=== PATIENT | male | born 1945 | race Hispanic/Latino ===

== ENCOUNTER 2017-05-08 07:48 | Inpatient (IN) | payer MEDICARE ==
[2017-05-08 08:05] VITALS: BMI 26.8
[2017-05-08] MEDS ORDERED: Amoxicillin-Clav 875-125 mg Tab PO STA (08:05)
--- NOTE | 2017-05-08 08:27 | ED PDOC ---
Arrival/HPI - General Chief Complaint: ENT Problem Time Seen by Provider: 05/08/17 07:57 Historian: Patient, Spouse - History of Present Illness Narrative History of Present Illness (Text): 05/08/17 07:58 Bryan Hinojosa is a 71 year old male, whose past medical history includes atrial fibrillation on Coumadin, who reports to the emergency department complaining of epistaxis from the bilateral nostrils since last night. Patient reports he was on the cruise when he started to bleed so he went to the physician on the crew ship, who packed the bilateral nares. Patient states blood work was done and is INR was 2.6. He mentions a previous history of epistaxis for when he need to be cauterized. Patient denies headache, dizziness, chest pain, nausea, vomiting or any other complaints at this time. Patient states he did not take his Coumadin yesterday. PMD: located in [place] Time/Duration: Other (last night) Symptom Onset: Sudden Symptom Course: Other Quality: Other Activities at Onset: Rest Context: Other (cruise) Past Medical History - Provider Review Nursing Documentation Reviewed: Yes - Travel History If Yes, travel location?: [place] - Infectious Disease Hx of Infectious Diseases: None - Cardiac Hx Atrial Fibrillation: Yes Hx Hypertension: Yes Other/Comment: Pt had ablation for the Afib - Pulmonary Hx Respiratory Disorders: No - Neurological Hx Neurological Disorder: No - HEENT Hx HEENT Disorder: No - Renal Hx Renal Disorder: No - Endocrine/Metabolic Hx Endocrine Disorders: No - Hematological/Oncological Hx Blood Disorders: No - Integumentary Hx Dermatological Disorder: No - Musculoskeletal/Rheumatological Hx Musculoskeletal Disorders: No - Gastrointestinal Hx Gastrointestinal Disorders: No - Genitourinary/Gynecological Hx Genitourinary Disorders: No - Psychiatric Hx Psychophysiologic Disorder: No Hx Substance Use: No - Anesthesia Hx Anesthesia: No Hx Anesthesia Reactions: No Hx Malignant Hyperthermia: No Family/Social History - Physician Review Nursing Documentation Reviewed: Yes Family/Social History: Unknown Family HX Smoking Status: Current Some Days Smoker Hx Alcohol Use: Yes Frequency of alcohol use: Socially Hx Substance Use: No Allergies/Home Meds Allergies/Adverse Reactions: Allergies No Known Allergies Allergy (Unverified 05/08/17 08:04) Home Medications: Home Meds Medication Instructions Recorded Confirmed Allopurinol [Zyloprim] 300 mg PO DAILY 05/08/17 05/08/17 Atorvastatin [Lipitor] 20 mg PO DAILY 05/08/17 05/08/17 Digoxin [Lanoxin] 0.125 mg PO DAILY 05/08/17 05/08/17 Doxylamine Succinate [Wal-Ranulfo] 25 mg PO DAILY 05/08/17 05/08/17 Furosemide [Lasix] 40 mg PO DAILY 05/08/17 05/08/17 Lamotrigine [Lamictal (Blue)] 25 mg PO DAILY 05/08/17 05/08/17 Warfarin [Coumadin] 5 mg PO DAILY 05/08/17 05/08/17 Review of Systems - Review of Systems Constitutional: absent: Fatigue, Fevers Eyes: absent: Vision Changes ENT: Epistaxis. absent: Hearing Changes, Rhinorrhea Respiratory: absent: SOB Cardiovascular: absent: Chest Pain Gastrointestinal: absent: Abdominal Pain, Diarrhea, Vomiting Genitourinary Male: absent: Dysuria, Frequency Musculoskeletal: absent: Back Pain, Neck Pain Skin: absent: Rash Neurological: absent: Headache, Dizziness Endocrine: absent: Diaphoresis Hemo/Lymphatic: absent: Easy Bleeding Psychiatric: absent: Depression Physical Exam - Physical Exam Narrative Physical Exam (Text): 05/08/17 07:58 Vital Signs Reviewed: Yes Vital Signs Temp Pulse Resp BP Pulse Ox 05/08/17 14:39 139 H 18 108/71 98 05/08/17 14:25 125 H 17 103/53 L 99 05/08/17 13:45 134 H 16 110/75 99 05/08/17 13:36 137 H 18 101/65 99 05/08/17 10:49 111 H 18 102/69 99 05/08/17 09:45 137 H 17 100/67 99 05/08/17 09:15 97.9 F 102 H 18 111/64 97 Temperature: Afebrile Blood Pressure: Normal Pulse: Tachycardic Respiratory Rate: Normal Appearance: Positive for: Well-Appearing, Non-Toxic, Comfortable Pain Distress: None Mental Status: Positive for: Alert and Oriented X 3 - Systems Exam Head: Present: Atraumatic, Normocephalic Pupils: Present: PERRL Extroacular Muscles: Present: EOMI Conjunctiva: Present: Normal Mouth: Present: Moist Mucous Membranes Pharnyx: Present: Other (no post nasal drip). No: ERYTHEMA, EXUDATE Nose (Internal): Present: Other (bilateral packing in place). No: No Active Bleeding Neck: Present: Normal Range of Motion Respiratory/Chest: Present: Clear to Auscultation, Good Air Exchange. No: Respiratory Distress, Accessory Muscle Use Cardiovascular: Present: Regular Rate and Rhythm, Normal S1, S2. No: Murmurs Abdomen: Present: Normal Bowel Sounds. No: Tenderness, Distention, Peritoneal Signs Back: Present: Normal Inspection Upper Extremity: Present: Normal Inspection. No: Cyanosis, Edema Neurological: Present: GCS=15, CN II-XII Intact, Speech Normal Skin: Present: Warm, Dry, Normal Color. No: Rashes Psychiatric: Present: Alert, Oriented x 3, Normal Insight, Normal Concentration Medical Decision Making ED Course and Treatment: 05/08/17 08:38 Impression: 71 year old male with epistaxis. Currently patient has no active bleeding. Differential Diagnosis included but are not limited to: epistaxis Plan: -- Labs -- Augmentin -- observe for reoccurring epistaxis -- Reassess and disposition 05/08/17 09:34 Hgb:12. INR:3.58. Patient instructed to hold coumadin tonight due to elevation. Rapid rhino removed as bleeding around rapid rhino. Patient refusing additional rapid rhino and requesting treatment with silver nitrate stick. L nostril shows red and inflammed nare with areas of oozing that were treated with silver nitrate stick 05/08/17 10:30 Patient was monitored for 1 hour and had no recurrence of bleeding. 05/08/17 10:49 Patient then began to bleed again. He consents to rapid rhino placement. 05/08/17 12:55 Patient had persistent bleeding after placement of afrin soaked rapid rhino to L nare and then rapid rhino placed to R nare. Bleeding resolved. Patient states that he went to the bathroom and had dark stool. A rectal exam was performed. Patient has dark stool and is guaiac positive. Patient denies abdominal pain. Due to patient elevated INR, tachycardia, persistent epistaxis and rectal bleeding will admit patient. Vit 1 5mg IV given due to clinically significant active bleeding and INR>2. Dr. Skyler burgos. I have discussed the results and plan with the patient, who expresses understanding. Patient given the opportunity to ask question, all questions were answered and there is agreement with the plan to be admitted to the hospital. 05/08/17 13:09 Dr. Holland aware. Ordered FFP. and GI and ENT consult placed. 05/08/17 14:01 Patient has elevated hr but has maintained and has unchanged BP throughout emergency department observation. HR elevation thought secondary to combination of pain and blood loss. IVF infusing. Repeat Hgb 12.1 to 11.6 05/08/17 14:27 EKG done because patient going to tele. No chest pain. 05/08/17 14:[address] griffin and he reports that blood is likely swallowed blood. He reports that patient can have clear liquid and he will follow 05/08/17 14:49 Spoke to ENT on consult who will evaluate patient. - Lab Interpretations Lab Results: 05/08/17 08:15 05/08/17 08:15 Lab Results 05/08/17 08:15: Sodium 141, Potassium 4.9, Chloride 106, Carbon Dioxide 28, Anion Gap 12, BUN 59 H, Creatinine 1.0, Est GFR ( Amer) > 60, Est GFR ( Non-Af Amer) > 60, Random Glucose 140 H, Calcium 8.9, Total Bilirubin 0.9, AST 33, ALT 32, Alkaline Phosphatase 45, Total Protein 5.7 L, Albumin 3.3, Globulin 2.5, Albumin/Globulin Ratio 1.3 05/08/17 08:15: PT 38.7 H*, INR 3.58 H*, APTT 39.5 H 05/08/17 08:15: WBC 5.6, RBC 3.76, Hgb 12.1 L, Hct 37.2 L, MCV 98.9, MCH 32.2, MCHC 32.5, RDW 15.0 H, Plt Count 116 L, MPV 11.9 H, Gran % 83.0 H, Lymph % (Auto ) 11.6 L, [place] % (Auto) 4.8, Eos % (Auto) 0.2 L, Baso % (Auto) 0.4, Gran # 4.67 , Lymph # 0.7 L, [place] # 0.3, Eos # 0.0, Baso # 0.02 I have reviewed the lab results: Yes - Medication Orders Current Medication Orders: Discontinued Medications Amoxicillin/Clavulanate Potassium (Augmentin 875 Mg-125 Mg Tab) 1 tab PO STAT STA PRN Reason: Protocol Stop: 05/08/17 08:06 Last Admin: 05/08/17 08:27 Dose: 1 tab Phytonadione 5 mg/ Sodium (Chloride) 50.5 mls @ 100 mls/hr IV STAT STA Stop: 05/08/17 13:27 Last Admin: 05/08/17 13:30 Dose: 100 mls/hr Sodium Chloride (Sodium Chloride 0.9%) 1,000 mls @ 999 mls/hr IV .Q1H1M STA Stop: 05/08/17 14:00 Last Admin: 05/08/17 13:51 Dose: 999 mls/hr Morphine Sulfate (Morphine) 4 mg IVP STAT STA Stop: 05/08/17 14:12 Last Admin: 05/08/17 14:40 Dose: 4 mg Oxymetazoline HCl (Afrin 0.05%) 0 ml NS STAT STA Stop: 05/08/17 10:23 Last Admin: 05/08/17 13:53 Dose: Not Given Non-Admin Reason: Patient Refused Pantoprazole Sodium (Protonix Inj) 40 mg IVP STAT STA Stop: 05/08/17 12:59 Last Admin: 05/08/17 13:51 Dose: 40 mg Phenylephrine HCl (Saji-Synephrine 0.5% Nasal [place]) Confirm Administered Dose 15 ml .ROUTE .STK-MED ONE Stop: 05/08/17 10:24 Phytonadione (Vitamin K Inj) Confirm Administered Dose 10 mg .ROUTE .STK-MED ONE Stop: 05/08/17 13:43 Last Admin: 05/08/17 13:53 Dose: ED OBSERVATION Date of observation admission: 05/08/17 Time of observation admission: 07:58 - Observation admission statement Patient is being placed in observation because:: epistaxis - Goals of Observation Goals of observation are:: control bleeding - Scribe Statement The provider has reviewed the documentation as recorded by the Scribe 05/08/17 Laly Gabriel training with Tan Davies Provider Scribe Attestation: All medical record entries made by the Scribe were at my direction and personally dictated by me. I have reviewed the chart and agree that the record accurately reflects my personal performance of the history, physical exam, medical decision making, and the department course for this patient. I have also personally directed, reviewed, and agree with the discharge instructions and disposition. Disposition/Present on Arrival - Present on Arrival Any Indicators Present on Arrival: No History of DVT/PE: No History of Uncontrolled Diabetes: No Urinary Catheter: No History of Decub. Ulcer: No History Surgical Site Infection Following: None - Disposition Have Diagnosis and Disposition been Completed?: Yes Diagnosis: Epistaxis, Guaiac positive stools Disposition: HOME/ ROUTINE Disposition Time: 10:30 Patient Plan: Admission Patient Problems: Current Active Problems Problem Status Onset Epistaxis Acute Guaiac positive stools Acute Condition: FAIR
[2017-05-08 08:59] LABS: BASO # 0.02 K/mm3 (0.0-2.0); BASO % 0.4 % (0.0-3.0); EOS % 0.2 % (1.5-5.0); GRAN # 4.67 (1.4-6.5); HEMOGLOBIN 12.1 gm/dL (14.0-18.0); LYMPH # 0.7 (1.2-3.4); LYMPH % 11.6 % (22.0-35.0); MEAN CELL VOLUME 98.9 fL (80.0-105.0); MEAN CORPUSCULAR HEMOGLOBIN 32.2 pg (25.0-35.0); MEAN CORPUSCULAR HGB CONC 32.5 g/dl (31.0-37.0); MEAN PLATELET VOLUME 11.9 fl (7.0-11.0); MONO # 0.3 (0.1-0.6); MONO % 4.8 % (1.0-6.0); PLATELET COUNT 116 10^3/uL (120.0-450.0); RBC 3.76 10^6/uL (3.5-6.1); WHITE BLOOD COUNT 5.6 10^3/ul (4.5-11.0)
[2017-05-08 09:08] LABS: PARTIAL THROMBOPLASTIN TIME 39.5 Seconds (23.7-30.8); PROTHROMBIN TIME 38.7 Seconds (9.9-11.8)
[2017-05-08 09:12] LABS: ALB/GLOB RATIO 1.3 (1.1-1.8); ALBUMIN 3.3 g/dL (3.0-4.8); ALT/SGPT 32 U/L (7-56); AST/SGOT 33 U/L (15-59); BLOOD UREA NITROGEN 59 mg/dL (7-21); CALCIUM 8.9 mg/dL (8.4-10.5); GFR AFRICAN-AMERICAN > 60; GFR NON-AFRICAN AMERICAN > 60; INR 3.58 (0.93-1.08)
[2017-05-08] MEDS ORDERED: Oxymetazoline 0.05% Nasal Spray (30 ml) NS STA (10:22)
[2017-05-08] MEDS ORDERED: Phenylephrine 0.5% Nasal Spray (15 ml) ONE (10:23)
[2017-05-08] MEDS ORDERED: Phytonadione 5 MG in Sodium Chloride 0.9% 50 ML IV STA (12:57)
[2017-05-08] MEDS ORDERED: Sodium Chloride 0.9% 1,000 ML IV STA (13:00)
[2017-05-08] MEDS ORDERED: Phytonadione 10 mg/ml Inj (Adult) ONE (13:42)
[2017-05-08 13:55] LABS: BASO # 0.01 K/mm3 (0.0-2.0); BASO % 0.1 % (0.0-3.0); EOS % 0.1 % (1.5-5.0); GRAN # 7.14 (1.4-6.5); GRAN % 85.7 % (50.0-68.0); HEMOGLOBIN 11.6 gm/dL (14.0-18.0); LYMPH # 0.9 (1.2-3.4); LYMPH % 10.6 % (22.0-35.0); MEAN CELL VOLUME 98.3 fL (80.0-105.0); MEAN CORPUSCULAR HEMOGLOBIN 32.6 pg (25.0-35.0); MEAN CORPUSCULAR HGB CONC 33.1 g/dl (31.0-37.0); MEAN PLATELET VOLUME 12.1 fl (7.0-11.0); MONO # 0.3 (0.1-0.6); MONO % 3.5 % (1.0-6.0); PLATELET COUNT 122 10^3/uL (120.0-450.0); RBC 3.56 10^6/uL (3.5-6.1); RED CELL DISTRIBUTION WIDTH 15.1 % (11.5-14.5); WHITE BLOOD COUNT 8.3 10^3/ul (4.5-11.0)
[2017-05-08 14:02] LABS: ALB/GLOB RATIO 1.4 (1.1-1.8); ALBUMIN 3.4 g/dL (3.0-4.8); ALT/SGPT 32 U/L (7-56); AST/SGOT 29 U/L (15-59); BLOOD UREA NITROGEN 69 mg/dL (7-21); CALCIUM 8.9 mg/dL (8.4-10.5); GFR AFRICAN-AMERICAN > 60; GFR NON-AFRICAN AMERICAN > 60
[2017-05-08] MEDS ORDERED: Morphine 4 mg/ml ISec IVP STA (14:11)
[2017-05-08] MEDS ORDERED: Digoxin 500 mcg/2ml (0.5 mg/2ml) Inj IVP ONE ×2 (16:34→20:30)
--- NOTE | 2017-05-08 16:52 | CP.PCM.PN ---
Subjective - Date & Time of Evaluation Date of Evaluation: 05/08/17 Time of Evaluation: 15:25 - Subjective Subjective: Patient has orders for transfusion of FFP,needs consent for the same. Objective - Vital Signs/Intake and Output Vital Signs (last 24 hours): Temp Pulse Resp BP Pulse Ox 97.9 F 139 H 18 108/71 98 05/08/17 09:15 05/08/17 14:39 05/08/17 14:39 05/08/17 14:39 05/08/17 14:39 - Labs Labs: 05/08/17 13:35 05/08/17 13:35 PT 38.7 Seconds (9.9-11.8) H* 05/08/17 08:15 INR 3.58 (0.93-1.08) H* 05/08/17 08:15 APTT 39.5 Seconds (23.7-30.8) H 05/08/17 08:15 - Constitutional Appears: No Acute Distress Assessment and Plan - Assessment and Plan (Free Text) Assessment: Coagulopathy Plan: Explained to pt about his coagulopathy and the need for transfusion of FFP,and its benefits and risks. Patient stated he understood what he was told,then signed consent for the same.
[2017-05-08] MEDS ORDERED: Sodium Chloride 0.9% 250 ML IV SCH (16:56)
--- NOTE | 2017-05-08 17:00 | CP.PCM.PN ---
<SULAIMAN BAH - Last Filed: 05/08/17 18:59> Subjective - Date & Time of Evaluation Date of Evaluation: 05/08/17 Time of Evaluation: 16:00 - Subjective Subjective: Rapid Response NOTE Rapid Response team was called and responded STAT to [employer] call @[id number]. Mr. Hinojosa was found on the floor, but was talking. The patient denied chest pain , headache, change in vision, but admitted to feeling dizzy and nauseous. The patient was on a cruise when he had an episode of epistaxis and came to the hospital as soon as they reached land. The pt was treated with nasal packing in the ER and was given morphine for the pain a/w pressure of packing. After bleeding was controlled, packing was removed but had to be replaced due to recurrent bleeding. Workup in the ER revealed pt's INR to be 3.58. FFP was ordered. After pt came to the floor, pt got up to use the bathroom, felt dizzy, vomited some blood (per ) and fell. Patient did not pass out or lose consciousness but did admit to feeling faint. The pt's vitals were BP 161/99, P129, RR 20, O2Sat 94%RA, FS 168. Labs were reviewed. PMH Afib Objective - Vital Signs/Intake and Output Vital Signs (last 24 hours): Temp Pulse Resp BP Pulse Ox 97.9 F 139 H 18 108/71 98 05/08/17 09:15 05/08/17 14:39 05/08/17 14:39 05/08/17 14:39 05/08/17 14:39 - Medications Medications: Current Medications Allopurinol (Zyloprim) 300 mg PO DAILY EMI Atorvastatin Calcium (Lipitor) 20 mg PO DAILY EMI Digoxin (Lanoxin) 0.125 mg PO 1400 EMI Furosemide (Lasix) 40 mg PO DAILY EMI diltiaZEM IVPB 100mg in NS (Cardizem 100mg In Ns) 100 mls @ 10 mls/hr IV .Q10H PRN; Protocol; 10 MG/HR PRN Reason: TITRATE PER MD ORDER - Labs Labs: 05/08/17 13:35 05/08/17 13:35 PT 38.7 Seconds (9.9-11.8) H* 05/08/17 08:15 INR 3.58 (0.93-1.08) H* 05/08/17 08:15 APTT 39.5 Seconds (23.7-30.8) H 05/08/17 08:15 - Constitutional Appears: In Acute Distress (discomfort due to nasal packing ) - Head Exam Head Exam: NORMOCEPHALIC Additional comments: small superficial abrasion 1/4" diameter on back of skull (occiptoparietal region) - Eye Exam Eye Exam: Normal appearance, PERRL - ENT Exam ENT Exam: Mucous Membranes Moist Additional comments: nose with packing in place, bloody. Trace dry blood around external nose - Neck Exam Neck Exam: Normal Inspection. absent: Tenderness - Respiratory Exam Respiratory Exam: Clear to Ausculation Bilateral - Cardiovascular Exam Cardiovascular Exam: Tachycardia, Irregular Rhythm - GI/Abdominal Exam GI & Abdominal Exam: Soft, Normal Bowel Sounds. absent: Tenderness - Extremities Exam Extremities Exam: absent: Calf Tenderness, Pedal Edema Additional comments: old scare in R knee, moves well but complains of pain, no localized tenderness or ecchymosis or hematoma - Back Exam Back Exam: NORMAL INSPECTION. absent: paraspinal tenderness, vertebral tenderness - Neurological Exam Neurological Exam: Awake, CN II-XII Intact, Oriented x3 Additional comments: moves all 4 limbs equally - Psychiatric Exam Psychiatric exam: Anxious - Skin Skin Exam: Abrasion (on posterior scalp, no active bleeding noted), Dry, Warm Assessment and Plan - Assessment and Plan (Free Text) Assessment: 1. Fall 2. Scalp abrasion 3. Epistaxis 4. Coagulopathy 5. Afib with RVR 6. Hematemesis 7. R Knee pain Plan: 1. Fall - CT Head w/o contrast done - Neuro consulted 2. Scalp abrasion - clean with normal saline 3. Epistaxis - nasal packing in place - ENT consulted, pt to be seen shortly 4. Coagulopathy - FFP ordered 5. Afib with RVR - Dr. Mccray was consulted - pt was about to get cardizem as ordered by Dr. Mccray, but was held due to BP being low (87/50). Instead Digoxin IV was given. 6. Hematemesis - GI was already consulted 7. R Knee pain - R Knee XRAY ordered 8. Hypotension possibly 2/2 epistaxis vs GI bleed - pt given IVF - CBC and blood was ordered for type and cross-match - consult requested with intensevist Dr. Franco- pt accepted to ICU and was transferred <Nena Bang - Last Filed: 05/08/17 19:47> Objective - Vital Signs/Intake and Output Vital Signs (last 24 hours): Temp Pulse Resp BP Pulse Ox 97.5 F L 135 H 24 146/113 H 96 05/08/17 18:13 05/08/17 19:14 05/08/17 19:00 05/08/17 19:14 05/08/17 19:00 Intake and Output: 05/08/17 05/09/17 18:59 06:59 Intake Total 240 Output Total 150 Balance 90 - Medications Medications: Current Medications Acetaminophen (Tylenol 650mg/20.3ml Solution Ud) 650 mg PO Q6H PRN PRN Reason: Pain, moderate (4-7) Allopurinol (Zyloprim) 300 mg PO DAILY EMI Atorvastatin Calcium (Lipitor) 20 mg PO DAILY EMI Digoxin (Lanoxin) 0.125 mg PO 1400 EMI Digoxin (Lanoxin) 0.25 mg IVP ONCE ONE Stop: 05/08/17 20:31 Furosemide (Lasix) 40 mg PO DAILY EMI diltiaZEM IVPB 100mg in NS (Cardizem 100mg In Ns) 100 mls @ 10 mls/hr IV .Q10H PRN; Protocol; 10 MG/HR PRN Reason: TITRATE PER MD ORDER Last Admin: 05/08/17 19:14 Dose: 10 mg/hr, 10 mls/hr Sodium Chloride (Sodium Chloride 0.9%) 1,000 mls @ 100 mls/hr IV .Q10H EMI Lamotrigine (Lamictal) 25 mg PO DAILY EMI PRN Reason: Protocol Scopolamine (Transderm-Scop) 1 patch TD Q3D EMI - Labs Labs: 05/08/17 17:00 05/08/17 17:00 PT 30.0 Seconds (9.9-11.8) H 05/08/17 17:00 INR 2.78 (0.93-1.08) H 05/08/17 17:00 APTT 39.5 Seconds (23.7-30.8) H 05/08/17 08:15 Attending/Attestation - Attestation I have personally seen and examined this patient.: Yes I have fully participated in the care of the patient.: Yes I have reviewed all pertinent clinical information, including history, physical exam and plan: Yes
--- NOTE | 2017-05-08 17:04 | CP.PCM.CON ---
History of Present Illness - History of Present Illness History of Present Illness: NEURO CONSULT NOTE: 05/08/17 CHIEF COMPLAINT: FALL/NEAR SYNCOPE HPI: MR. RANDLE IS A 71 YEAR OLD MAN WITH HISTORY OF AFIB ON COUMADIN WAS [place] AND HAD SUDDENLY DEVELOPED BILATERAL EPISTAXIS THEREFORE CAME TO THE [facility] FOR FURTHER EVALUATION. HE WAS GOING TO THE BATHROOM AND FELT LIGHTHEADED AND FELL TO THE FLOOR AND HIT HIS HEAD. NO LOSS OF CONSCIOUSNESS. HE IS FOLLOWING COMMANDS AND MOVING ALL EXTREMITIES. HE WAS GIVEN MORPHINE IN THE ER FOR PAIN. CT HEAD ORDERD STAT, RESULT PENDING. HE STILL CONTINUES TO BLEED FROM HIS NOSTRILS. HE IS GETTING 2 ROUNDS OF FFP SINCE INR IS ELEVATED. ROS: 14 POINT REVIEW OF SYMPTOMS IS NEGATIVE PER HPI. ALLERGIES: NONE SOCIAL HISTORY: NO ILLICIT DRUG USE, SMOKING, OR ETOH USE. FAMILY: NON CONTRIBUTORY. MEDICATIONS: REVIEWED BY NURSE'S RECONCILIATION SHEET. PAST MEDICAL HISTORY: AFIB, HTN PHYSICAL EXAM: VITAL SIGNS: REVIEWED BY THE CHART GENERAL EXAM: PATIENT SEEN IN BED, IN NO ACUTE DISTRESS HEENT: PERRLA, EOMI, NECK SUPPLE, NO JVD, NO ADENOPATHY CVS: S1, S2, RRR, NO MURMURS NOTED LUNGS: CLEAR TO AUSCULTATION, NO ADVENTITIOUS SOUNDS ABDOMEN: SOFT AND NONTENDER EXTREMITIES: NO CLUBBING OR CYANOSIS. PP 2+ B/L NEURO: PT IS ALERT AND ORIENTED TO PERSON, PLACE, AND YEAR. , RECALL TO 5 MINUTES 3/3, SPEECH IS FLUENT WITHOUT ERRORS, CN II-XII INTACT, MOTOR EXAM: NORMAL TONE, NORMAL BULK OF MUSCLE, MOVES ALL EXTREMITIES EQUALLY, NO PRONATOR DRIFT SEEN. SENSORY EXAM: LIGHT TOUCH, PIN PRICK UP TO CALVES B/L, PROPRIOCEPTION , VIBRATION ARE INTACT B/L DEEP TENDON REFLEXES: 2+ THROUGHOUT. COORDINATION: FINGER TO NOSE IS INTACT. HEEL TO [place]VAL[place] IS INTACT GAIT: DEFERRED. LABS: REVIEWED BY THE CHART. ASSESSMENT AND PLAN: MR. RANDLE IS A 71 YEAR OLD MAN WITH HISTORY OF AFIB ON COUMADIN WAS [place] THE [place] AND HAD SUDDENLY DEVELOPED BILATERAL EPISTAXIS THEREFORE CAME TO THE [facility] FOR FURTHER EVALUATION. HE WAS GOING TO THE BATHROOM AND FELT LIGHTHEADED AND FELL TO THE FLOOR AND HIT HIS HEAD. NO LOSS OF CONSCIOUSNESS. HE IS FOLLOWING COMMANDS AND MOVING ALL EXTREMITIES. HE WAS GIVEN MORPHINE IN THE ER FOR PAIN. CT HEAD ORDERD STAT, RESULT PENDING. HE STILL CONTINUES TO BLEED FROM HIS NOSTRILS. HE IS GETTING 2 ROUNDS OF FFP SINCE INR IS ELEVATED. IMPRESSION: FALL/NEAR SYNCOPE SECONDARY TO A VASOVAGAL COMPONENT FROM EPSTAXIS AND MORPHINE MEDICATION. 1.HOLD COUMADIN FOR NOW. GIVE FFP. 2. MONITOR ELECTROLYTES AND CORRECT ACCORDINGLY. HYDRATE. 3. FIORECET AT THE ACUTE ONSET OF HEADACHE 4. CT HEAD STAT. 5. HYDRATION. THANK YOU. Jessica DAILEY MD Past Patient History - Infectious Disease Hx of Infectious Diseases: None - Past Social History Smoking Status: Current Some Days Smoker - CARDIAC Hx Atrial Fibrillation: Yes Hx Hypertension: Yes Other/Comment: Pt had ablation for the Afib - PULMONARY Hx Respiratory Disorders: No - NEUROLOGICAL Hx Neurological Disorder: No - HEENT Hx HEENT Problems: No - RENAL Hx Chronic Kidney Disease: No - ENDOCRINE/METABOLIC Hx Endocrine Disorders: No - HEMATOLOGICAL/ONCOLOGICAL Hx Blood Disorders: No - INTEGUMENTARY Hx Dermatological Problems: No - MUSCULOSKELETAL/RHEUMATOLOGICAL Hx Musculoskeletal Disorders: No - GASTROINTESTINAL Hx Gastrointestinal Disorders: No - GENITOURINARY/GYNECOLOGICAL Hx Genitourinary Disorders: No - PSYCHIATRIC Hx Psychophysiologic Disorder: No Hx Substance Use: No - SURGICAL HISTORY Hx Surgeries: No - ANESTHESIA Hx Anesthesia: No Hx Anesthesia Reactions: No Hx Malignant Hyperthermia: No Meds Home Medications: Home Medication List Medication Instructions Recorded Confirmed Type Amoxicillin/Clavulanate [Augmentin 1 tab PO BID #10 tab 05/08/17 Rx 875 MG-125 MG] Allergies/Adverse Reactions: Allergies Allergy/AdvReac Type Severity Reaction Status Date / Time No Known Allergies Allergy Unverified 05/08/17 08:04 - Medications Medications: Current Medications Allopurinol (Zyloprim) 300 mg PO DAILY EMI Atorvastatin Calcium (Lipitor) 20 mg PO DAILY EMI Digoxin (Lanoxin) 0.125 mg PO 1400 EMI Furosemide (Lasix) 40 mg PO DAILY EMI diltiaZEM IVPB 100mg in NS (Cardizem 100mg In Ns) 100 mls @ 10 mls/hr IV .Q10H PRN; Protocol; 10 MG/HR PRN Reason: TITRATE PER MD ORDER Results - Vital Signs Recent Vital Signs: Last Vital Signs Temp 97.9 F 05/08/17 09:15 Pulse 139 H 05/08/17 14:39 Resp 18 05/08/17 14:39 BP 108/71 05/08/17 14:39 Pulse Ox 98 05/08/17 14:39 - Labs Result Diagrams: 05/08/17 13:35 05/08/17 13:35 Labs: Laboratory Results - last 24 hr 05/08/17 05/08/17 05/08/17 13:35 13:35 13:35 WBC 8.3 D RBC 3.56 Hgb 11.6 L Hct 35.0 L MCV 98.3 MCH 32.6 MCHC 33.1 RDW 15.1 H Plt Count 122 MPV 12.1 H Gran % 85.7 H Lymph % (Auto) 10.6 L [place] % (Auto) 3.5 Eos % (Auto) 0.1 L Baso % (Auto) 0.1 Gran # 7.14 H Lymph # 0.9 L [place] # 0.3 Eos # 0.0 Baso # 0.01 Sodium 141 Potassium 4.8 Chloride 106 Carbon Dioxide 27 Anion Gap 13 BUN 69 H Creatinine 1.0 Est GFR ( Amer) > 60 Est GFR (Non-Af Amer) > 60 POC Glucose (mg/dL) Random Glucose 134 H Calcium 8.9 Total Bilirubin 0.8 AST 29 ALT 32 Alkaline Phosphatase 42 Total Protein 5.9 Albumin 3.4 Globulin 2.5 Albumin/Globulin Ratio 1.4 Blood Type AB NEGATIVE Blood Type Confirm Antibody Screen Negative BBK History Checked No verified bt 05/08/17 05/08/17 14:25 16:07 WBC RBC Hgb Hct MCV MCH MCHC RDW Plt Count MPV Gran % Lymph % (Auto) [place] % (Auto) Eos % (Auto) Baso % (Auto) Gran # Lymph # [place] # Eos # Baso # Sodium Potassium Chloride Carbon Dioxide Anion Gap BUN Creatinine Est GFR ( Amer) Est GFR (Non-Af Amer) POC Glucose (mg/dL) 168 H Random Glucose Calcium Total Bilirubin AST ALT Alkaline Phosphatase Total Protein Albumin Globulin Albumin/Globulin Ratio Blood Type Blood Type Confirm AB NEGATIVE Antibody Screen BBK History Checked
[2017-05-08 17:07] LABS: HEMOGLOBIN 10.5 gm/dL (14.0-18.0); MEAN CELL VOLUME 98.2 fL (80.0-105.0); MEAN CORPUSCULAR HEMOGLOBIN 32.1 pg (25.0-35.0); MEAN CORPUSCULAR HGB CONC 32.7 g/dl (31.0-37.0); MEAN PLATELET VOLUME 11.4 fl (7.0-11.0); RBC 3.27 10^6/uL (3.5-6.1); RED CELL DISTRIBUTION WIDTH 15.1 % (11.5-14.5); WHITE BLOOD COUNT 7.6 10^3/ul (4.5-11.0)
[2017-05-08 17:19] LABS: ALB/GLOB RATIO 1.2 (1.1-1.8); ALBUMIN 2.9 g/dL (3.0-4.8); ALT/SGPT 31 U/L (7-56); AST/SGOT 28 U/L (15-59); BLOOD UREA NITROGEN 73 mg/dL (7-21); CALCIUM 8.4 mg/dL (8.4-10.5); GFR AFRICAN-AMERICAN > 60; GFR NON-AFRICAN AMERICAN > 60
[2017-05-08 17:28] LABS: INR 2.78 (0.93-1.08)
[2017-05-08 17:29] LABS: TROPONIN I 0.03 ng/mL
--- NOTE | 2017-05-08 17:32 | CT ---
PROCEDURE: CT HEAD WITHOUT CONTRAST. HISTORY: Pt fell and struck head COMPARISON: None available. TECHNIQUE: Axial computed tomography images were obtained through the head/brain without intravenous contrast. Radiation dose: Total exam DLP = 895.86 mGy-cm. This CT exam was performed using one or more of the following dose reduction techniques: Automated exposure control, adjustment of the mA and/or kV according to patient size, and/or use of iterative reconstruction technique. FINDINGS: HEMORRHAGE: No intracranial hemorrhage. BRAIN: No intracranial mass the mild diffuse age-appropriate cerebral atrophy. VENTRICLES: Unremarkable. No hydrocephalus. CALVARIUM: Unremarkable. PARANASAL SINUSES: There is an air-fluid level in left maxillary antrum, possibly the result of an orbital floor fracture. The fluid in the left maxillary antrum is of high attenuation consistent with blood. There is no fracture clearly demonstrated on this examination. There are balloons in both nasal passages, possibly for treatment of nasal hemorrhage. There is blood or mucus intermixed with air in the nasopharynx. There is nasal septal deviation towards the right. Evaluation with CT of the facial bones is advised. MASTOID AIR CELLS: Unremarkable as visualized. No inflammatory changes. OTHER FINDINGS: None. IMPRESSION: No intracranial hemorrhage. Possible left orbital floor fracture, only secondarily demonstrated by air-fluid level in the left maxillary antrum. The fluid in the maxillary antrum is high attenuation and suspected to be blood. Nasal packing demonstrated. Recommend evaluation with CT of the facial bones.
[2017-05-08] MEDS ORDERED: Bacitracin 500 Units/gm Oint Foilpak UD ONE (17:41)
[2017-05-08] MEDS ORDERED: Acetaminophen 650mg/20.3ml solution UD PO PRN (18:05)
--- NOTE | 2017-05-08 18:36 | CP.PCM.CON ---
History of Present Illness - History of Present Illness History of Present Illness: 71yo [place] w severe epistaxis uncontrolled there, brought to ER w packing/cautery x 2 w continued oozing of blood to pharynx. Pt on coumadin for afib, w similar episode =2years ago. INR 3.58, Vit K given w MS in ER w pt attempting to go to toilet w possible syncopal event, w hitting head now resting comfortably w at bedside, w elevated HR noted for eval/rx Review of Systems - Constitutional Constitutional: As Per HPI - EENT Eyes: As Per HPI Nose/Mouth/Throat: Epistaxis, Nose Pain, Sinus Pain, Sinus Pressure, Facial Pain - Cardiovascular Cardiovascular: Irregular Heart Rhythm, Lightheadedness - Respiratory Respiratory: As Per HPI - Gastrointestinal Gastrointestinal: As Per HPI - Musculoskeletal Musculoskeletal: As Per HPI - Integumentary Integumentary: As Per HPI - Neurological Neurological: Tremor - Hematologic/Lymphatic Hematologic: Easy Bleeding Past Patient History - Infectious Disease Hx of Infectious Diseases: None - Past Social History Smoking Status: Current Some Days Smoker 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 Drugs: Denies Home Situation {Lives}: With Family - CARDIAC Hx Atrial Fibrillation: Yes Hx Hypertension: Yes Other/Comment: Pt had ablation for the Afib - PULMONARY Hx Respiratory Disorders: No - NEUROLOGICAL Hx Neurological Disorder: No - HEENT Hx HEENT Problems: No Hx Epistaxis: Yes - RENAL Hx Chronic Kidney Disease: No - ENDOCRINE/METABOLIC Hx Endocrine Disorders: No - HEMATOLOGICAL/ONCOLOGICAL Hx Blood Disorders: No - INTEGUMENTARY Hx Dermatological Problems: No - MUSCULOSKELETAL/RHEUMATOLOGICAL Hx Musculoskeletal Disorders: No - GASTROINTESTINAL Hx Gastrointestinal Disorders: No - GENITOURINARY/GYNECOLOGICAL Hx Genitourinary Disorders: No - PSYCHIATRIC Hx Psychophysiologic Disorder: No Hx Substance Use: No - SURGICAL HISTORY Hx Surgeries: No - ANESTHESIA Hx Anesthesia: No Hx Anesthesia Reactions: No Hx Malignant Hyperthermia: No Meds Home Medications: Home Medication List Medication Instructions Recorded Confirmed Type Amoxicillin/Clavulanate [Augmentin 1 tab PO BID #10 tab 05/08/17 Rx 875 MG-125 MG] Allergies/Adverse Reactions: Allergies Allergy/AdvReac Type Severity Reaction Status Date / Time No Known Allergies Allergy Unverified 05/08/17 08:04 - Medications Medications: Current Medications Acetaminophen (Tylenol 650mg/20.3ml Solution Ud) 650 mg PO Q6H PRN PRN Reason: Pain, moderate (4-7) Allopurinol (Zyloprim) 300 mg PO DAILY EMI Atorvastatin Calcium (Lipitor) 20 mg PO DAILY EMI Digoxin (Lanoxin) 0.125 mg PO 1400 EMI Furosemide (Lasix) 40 mg PO DAILY EMI diltiaZEM IVPB 100mg in NS (Cardizem 100mg In Ns) 100 mls @ 10 mls/hr IV .Q10H PRN; Protocol; 10 MG/HR PRN Reason: TITRATE PER MD ORDER Sodium Chloride (Sodium Chloride 0.9%) 1,000 mls @ 100 mls/hr IV .Q10H EMI Lamotrigine (Lamictal) 25 mg PO DAILY EMI PRN Reason: Protocol Physical Exam - Head Exam Head Exam: NORMOCEPHALIC - Respiratory Exam Respiratory Exam: Clear to Auscultation Bilateral - Cardiovascular Exam Cardiovascular Exam: Irregular Rhythm - GI/Abdominal Exam GI & Abdominal Exam: Normal Bowel Sounds - Extremities Exam Extremities exam: Positive for: normal inspection - Expanded Neurological Exam Expanded Neurological exam: Tremor - Skin Skin Exam: Normal Color, Warm Results - Vital Signs Recent Vital Signs: Last Vital Signs Temp 97.9 F 05/08/17 09:15 Pulse 139 H 05/08/17 14:39 Resp 18 05/08/17 14:39 BP 108/71 05/08/17 14:39 Pulse Ox 98 05/08/17 14:39 - Labs Result Diagrams: 05/08/17 17:00 05/08/17 17:00 Labs: Laboratory Results - last 24 hr 05/08/17 05/08/17 05/08/17 13:35 13:35 13:35 WBC 8.3 D RBC 3.56 Hgb 11.6 L Hct 35.0 L MCV 98.3 MCH 32.6 MCHC 33.1 RDW 15.1 H Plt Count 122 MPV 12.1 H Gran % 85.7 H Lymph % (Auto) 10.6 L [place] % (Auto) 3.5 Eos % (Auto) 0.1 L Baso % (Auto) 0.1 Gran # 7.14 H Lymph # 0.9 L [place] # 0.3 Eos # 0.0 Baso # 0.01 PT INR Sodium 141 Potassium 4.8 Chloride 106 Carbon Dioxide 27 Anion Gap 13 BUN 69 H Creatinine 1.0 Est GFR ( Amer) > 60 Est GFR (Non-Af Amer) > 60 POC Glucose (mg/dL) Random Glucose 134 H Calcium 8.9 Total Bilirubin 0.8 AST 29 ALT 32 Alkaline Phosphatase 42 Troponin I Total Protein 5.9 Albumin 3.4 Globulin 2.5 Albumin/Globulin Ratio 1.4 Digoxin Blood Type AB NEGATIVE Blood Type Confirm Antibody Screen Negative BBK History Checked No verified bt 05/08/17 05/08/17 05/08/17 14:25 16:07 17:00 WBC RBC Hgb Hct MCV MCH MCHC RDW Plt Count MPV Gran % Lymph % (Auto) [place] % (Auto) Eos % (Auto) Baso % (Auto) Gran # Lymph # [place] # Eos # Baso # PT INR Sodium Potassium Chloride Carbon Dioxide Anion Gap BUN Creatinine Est GFR ( Amer) Est GFR (Non-Af Amer) POC Glucose (mg/dL) 168 H Random Glucose Calcium Total Bilirubin AST ALT Alkaline Phosphatase Troponin I Total Protein Albumin Globulin Albumin/Globulin Ratio Digoxin 0.7 L Blood Type Blood Type Confirm AB NEGATIVE Antibody Screen BBK History Checked 05/08/17 05/08/17 05/08/17 17:00 17:00 17:00 WBC 7.6 RBC 3.27 L Hgb 10.5 L Hct 32.1 L MCV 98.2 MCH 32.1 MCHC 32.7 RDW 15.1 H Plt Count 114 L MPV 11.4 H Gran % Lymph % (Auto) [place] % (Auto) Eos % (Auto) Baso % (Auto) Gran # Lymph # [place] # Eos # Baso # PT 30.0 H INR 2.78 H Sodium 140 Potassium 4.4 Chloride 107 Carbon Dioxide 24 Anion Gap 13 BUN 73 H Creatinine 1.1 Est GFR ( Amer) > 60 Est GFR (Non-Af Amer) > 60 POC Glucose (mg/dL) Random Glucose 153 H Calcium 8.4 Total Bilirubin 0.9 AST 28 ALT 31 Alkaline Phosphatase 41 Troponin I 0.03 Total Protein 5.4 L Albumin 2.9 L Globulin 2.4 Albumin/Globulin Ratio 1.2 Digoxin Blood Type Blood Type Confirm Antibody Screen BBK History Checked Assessment & Plan - Assessment and Plan (Free Text) Assessment: A/P Epistaxis uncontrolled, Afib, abn INR o coumadin, tachydysrhthmia, tremor at rest , sp fall, light headedness, ?seizure disorder(pt on Lamictal) Admit to ICU, Cardio eval, ENT eval ,Neuro eval, 2u of FFP to be given, check INR/labs , continue meds as per Dr Mccray monitor clinically
--- NOTE | 2017-05-08 18:38 | CP.PCM.CON ---
History of Present Illness - History of Present Illness History of Present Illness: Reason For Consult: S/p Fall, Nose Bleed A fib RVR 71 year old male with PMhx Non ischemic CMP, S/p [place] procedure for Afib ( ch Afib) on coumadin from [place] was on [employer] [place] to [facility] B/ c of nose bleed, who [facility], and gonig to bath room fell down back major hit his head and having uncontrolled Epistaxis insted of Nasal packing and now heart rate in tel Floor 130-140"s soi cardilogy consu;t called. is at bed side who gave all info. Denies any chest pain, SOB, Palpitation PMhx C A fib. Gout, Hyperlipidemia Non Ischemic CMP pShx Cardiac cath in remote No coronaries [place] for Afib 2005 with lateral thoracotomy approach Current Meds Coumadin, Allopurinal Dig Lasix atorvastatin NKDA Review of Systems - Review of Systems Systems not reviewed;Unavailable: Acuity of Condition Review of Systems: Torential Nose Bleed - Constitutional Constitutional: As Per HPI - EENT Eyes: As Per HPI Ears: As Per HPI Nose/Mouth/Throat: As Per HPI - Cardiovascular Cardiovascular: As Per HPI - Respiratory Respiratory: As Per HPI - Gastrointestinal Gastrointestinal: As Per HPI Past Patient History - Infectious Disease Hx of Infectious Diseases: None - Past Social History Smoking Status: Current Some Days Smoker - CARDIAC Hx Atrial Fibrillation: Yes Hx Hypertension: Yes Other/Comment: Pt had ablation for the Afib - PULMONARY Hx Respiratory Disorders: No - NEUROLOGICAL Hx Neurological Disorder: No - HEENT Hx HEENT Problems: No - RENAL Hx Chronic Kidney Disease: No - ENDOCRINE/METABOLIC Hx Endocrine Disorders: No - HEMATOLOGICAL/ONCOLOGICAL Hx Blood Disorders: No - INTEGUMENTARY Hx Dermatological Problems: No - MUSCULOSKELETAL/RHEUMATOLOGICAL Hx Musculoskeletal Disorders: No - GASTROINTESTINAL Hx Gastrointestinal Disorders: No - GENITOURINARY/GYNECOLOGICAL Hx Genitourinary Disorders: No - PSYCHIATRIC Hx Psychophysiologic Disorder: No Hx Substance Use: No - SURGICAL HISTORY Hx Surgeries: No - ANESTHESIA Hx Anesthesia: No Hx Anesthesia Reactions: No Hx Malignant Hyperthermia: No Meds Home Medications: Home Medication List Medication Instructions Recorded Confirmed Type Amoxicillin/Clavulanate [Augmentin 1 tab PO BID #10 tab 05/08/17 Rx 875 MG-125 MG] Allergies/Adverse Reactions: Allergies Allergy/AdvReac Type Severity Reaction Status Date / Time No Known Allergies Allergy Unverified 05/08/17 08:04 - Medications Medications: Current Medications Acetaminophen (Tylenol 650mg/20.3ml Solution Ud) 650 mg PO Q6H PRN PRN Reason: Pain, moderate (4-7) Allopurinol (Zyloprim) 300 mg PO DAILY EMI Atorvastatin Calcium (Lipitor) 20 mg PO DAILY EMI Digoxin (Lanoxin) 0.125 mg PO 1400 EMI Furosemide (Lasix) 40 mg PO DAILY EMI diltiaZEM IVPB 100mg in NS (Cardizem 100mg In Ns) 100 mls @ 10 mls/hr IV .Q10H PRN; Protocol; 10 MG/HR PRN Reason: TITRATE PER MD ORDER Sodium Chloride (Sodium Chloride 0.9%) 1,000 mls @ 100 mls/hr IV .Q10H EMI Lamotrigine (Lamictal) 25 mg PO DAILY EMI PRN Reason: Protocol Physical Exam - Constitutional Appears: Non-toxic - Head Exam Head Exam: ATRAUMATIC Additional comments: Nasal packing on Left nostril but still fresh blood is oozing from right Nostril - Eye Exam Eye Exam: Conjunctival injection - ENT Exam ENT Exam: Mucous Membranes Moist - Neck Exam Neck exam: Positive for: Full Rom - Respiratory Exam Respiratory Exam: Clear to Auscultation Bilateral - Cardiovascular Exam Cardiovascular Exam: Tachycardia, Irregular Rhythm - Rectal Exam Rectal Exam: Deferred Results - Vital Signs Recent Vital Signs: Last Vital Signs Temp 97.9 F 05/08/17 09:15 Pulse 139 H 05/08/17 14:39 Resp 18 05/08/17 14:39 BP 108/71 05/08/17 14:39 Pulse Ox 98 05/08/17 14:39 - Labs Result Diagrams: 05/08/17 17:00 05/08/17 17:00 Labs: Laboratory Results - last 24 hr 05/08/17 05/08/17 05/08/17 13:35 13:35 13:35 WBC 8.3 D RBC 3.56 Hgb 11.6 L Hct 35.0 L MCV 98.3 MCH 32.6 MCHC 33.1 RDW 15.1 H Plt Count 122 MPV 12.1 H Gran % 85.7 H Lymph % (Auto) 10.6 L [place] % (Auto) 3.5 Eos % (Auto) 0.1 L Baso % (Auto) 0.1 Gran # 7.14 H Lymph # 0.9 L [place] # 0.3 Eos # 0.0 Baso # 0.01 PT INR Sodium 141 Potassium 4.8 Chloride 106 Carbon Dioxide 27 Anion Gap 13 BUN 69 H Creatinine 1.0 Est GFR ( Amer) > 60 Est GFR (Non-Af Amer) > 60 POC Glucose (mg/dL) Random Glucose 134 H Calcium 8.9 Total Bilirubin 0.8 AST 29 ALT 32 Alkaline Phosphatase 42 Troponin I Total Protein 5.9 Albumin 3.4 Globulin 2.5 Albumin/Globulin Ratio 1.4 Digoxin Blood Type AB NEGATIVE Blood Type Confirm Antibody Screen Negative BBK History Checked No verified bt 05/08/17 05/08/17 05/08/17 14:25 16:07 17:00 WBC RBC Hgb Hct MCV MCH MCHC RDW Plt Count MPV Gran % Lymph % (Auto) [place] % (Auto) Eos % (Auto) Baso % (Auto) Gran # Lymph # [place] # Eos # Baso # PT INR Sodium Potassium Chloride Carbon Dioxide Anion Gap BUN Creatinine Est GFR ( Amer) Est GFR (Non-Af Amer) POC Glucose (mg/dL) 168 H Random Glucose Calcium Total Bilirubin AST ALT Alkaline Phosphatase Troponin I Total Protein Albumin Globulin Albumin/Globulin Ratio Digoxin 0.7 L Blood Type Blood Type Confirm AB NEGATIVE Antibody Screen BBK History Checked 05/08/17 05/08/17 05/08/17 17:00 17:00 17:00 WBC 7.6 RBC 3.27 L Hgb 10.5 L Hct 32.1 L MCV 98.2 MCH 32.1 MCHC 32.7 RDW 15.1 H Plt Count 114 L MPV 11.4 H Gran % Lymph % (Auto) [place] % (Auto) Eos % (Auto) Baso % (Auto) Gran # Lymph # [place] # Eos # Baso # PT 30.0 H INR 2.78 H Sodium 140 Potassium 4.4 Chloride 107 Carbon Dioxide 24 Anion Gap 13 BUN 73 H Creatinine 1.1 Est GFR ( Amer) > 60 Est GFR (Non-Af Amer) > 60 POC Glucose (mg/dL) Random Glucose 153 H Calcium 8.4 Total Bilirubin 0.9 AST 28 ALT 31 Alkaline Phosphatase 41 Troponin I 0.03 Total Protein 5.4 L Albumin 2.9 L Globulin 2.4 Albumin/Globulin Ratio 1.2 Digoxin Blood Type Blood Type Confirm Antibody Screen BBK History Checked Assessment & Plan - Assessment and Plan (Free Text) Assessment: 71 old male with Hx of Ch afib S/p [place] procedure was [place] [employer] [facility] [facility] of Nose Bleed, S/p Fall on Floor S/p Rapid response, Now Afib RVR Nose Bleed Moderately elevated INR ( supra therapeutic) CMP Non Ischemic Ch A fib on Coumadin S/p [place] procedure S/p Cardiac cath in Remote normal Coronaries As per Hx of Gout Hx of Hyper lipidemia Plan: Give an extra potter of Dig to control heart rate IV Cardz FFP Nasal packing ENT eval Monitor H &H Upgrade to ICU. Discussed with Nursing staff and Resident expained to . - Date & Time Date: 05/08/17 Time: 04:45
--- NOTE | 2017-05-08 19:11 | CP.PCM.CON ---
History of Present Illness - History of Present Illness History of Present Illness: 71 yo male with afib on coumadin, fell today and hit his head which was complicated by refractory epistaxis, requiring nasal packing and ENT eval. Subsequent CT head revealed no ICH, however concern for orbital floor fracture and maxillary sinus bleed was raised. ENT team was aware. Besides hemostatic measures, patient developed RVR in the setting of afib and received one dose of Digoxin. cardiology consult was also requested. In light of all above patient was transfered to ICU for further management and monitoring Review of Systems - Constitutional Constitutional: As Per HPI - EENT Eyes: As Per HPI Nose/Mouth/Throat: Epistaxis, Nose Pain - Cardiovascular Cardiovascular: As Per HPI - Respiratory Respiratory: As Per HPI - Gastrointestinal Gastrointestinal: As Per HPI - Genitourinary Genitourinary: As Per HPI - Musculoskeletal Musculoskeletal: As Per HPI - Neurological Neurological: As Per HPI - Psychiatric Psychiatric: As Per HPI - Hematologic/Lymphatic Hematologic: Easy Bleeding Past Patient History - Infectious Disease Hx of Infectious Diseases: None - Past Social History Smoking Status: Current Some Days Smoker - CARDIAC Hx Atrial Fibrillation: Yes Hx Hypertension: Yes Other/Comment: Pt had ablation for the Afib - PULMONARY Hx Respiratory Disorders: No - NEUROLOGICAL Hx Neurological Disorder: No - HEENT Hx HEENT Problems: No - RENAL Hx Chronic Kidney Disease: No - ENDOCRINE/METABOLIC Hx Endocrine Disorders: No - HEMATOLOGICAL/ONCOLOGICAL Hx Blood Disorders: No - INTEGUMENTARY Hx Dermatological Problems: No - MUSCULOSKELETAL/RHEUMATOLOGICAL Hx Musculoskeletal Disorders: No - GASTROINTESTINAL Hx Gastrointestinal Disorders: No - GENITOURINARY/GYNECOLOGICAL Hx Genitourinary Disorders: No - PSYCHIATRIC Hx Psychophysiologic Disorder: No Hx Substance Use: No - SURGICAL HISTORY Hx Surgeries: No - ANESTHESIA Hx Anesthesia: No Hx Anesthesia Reactions: No Hx Malignant Hyperthermia: No Meds Home Medications: Home Medication List Medication Instructions Recorded Confirmed Type Amoxicillin/Clavulanate [Augmentin 1 tab PO BID #10 tab 05/08/17 Rx 875 MG-125 MG] Allergies/Adverse Reactions: Allergies Allergy/AdvReac Type Severity Reaction Status Date / Time No Known Allergies Allergy Unverified 05/08/17 08:04 - Medications Medications: Current Medications Acetaminophen (Tylenol 650mg/20.3ml Solution Ud) 650 mg PO Q6H PRN PRN Reason: Pain, moderate (4-7) Allopurinol (Zyloprim) 300 mg PO DAILY EMI Atorvastatin Calcium (Lipitor) 20 mg PO DAILY EMI Digoxin (Lanoxin) 0.125 mg PO 1400 EMI Digoxin (Lanoxin) 0.25 mg IVP ONCE ONE Stop: 05/08/17 20:31 Furosemide (Lasix) 40 mg PO DAILY EMI diltiaZEM IVPB 100mg in NS (Cardizem 100mg In Ns) 100 mls @ 10 mls/hr IV .Q10H PRN; Protocol; 10 MG/HR PRN Reason: TITRATE PER MD ORDER Sodium Chloride (Sodium Chloride 0.9%) 1,000 mls @ 100 mls/hr IV .Q10H EMI Lamotrigine (Lamictal) 25 mg PO DAILY EMI PRN Reason: Protocol Physical Exam - Constitutional Appears: Non-toxic - Head Exam Head Exam: NORMOCEPHALIC Additional comments: nasal bleeding - Eye Exam Pupil Exam: NORMAL ACCOMODATION, PERRL - ENT Exam ENT Exam: Mucous Membranes Moist - Neck Exam Neck exam: Positive for: Normal Inspection - Respiratory Exam Respiratory Exam: Clear to Auscultation Bilateral - Cardiovascular Exam Cardiovascular Exam: REGULAR RHYTHM, +S1, +S2 - GI/Abdominal Exam GI & Abdominal Exam: Normal Bowel Sounds Additional comments: soft, NT, ND - Neurological Exam Neurological exam: Alert, Oriented x3 - Psychiatric Exam Psychiatric exam: Normal Mood - Skin Skin Exam: Warm Results - Vital Signs Recent Vital Signs: Last Vital Signs Temp 97.9 F 05/08/17 09:15 Pulse 142 H 05/08/17 17:44 Resp 18 05/08/17 14:39 BP 108/71 05/08/17 14:39 Pulse Ox 98 05/08/17 14:39 - Labs Result Diagrams: 05/08/17 17:00 05/08/17 17:00 Labs: Laboratory Results - last 24 hr 05/08/17 05/08/17 05/08/17 13:35 13:35 13:35 WBC 8.3 D RBC 3.56 Hgb 11.6 L Hct 35.0 L MCV 98.3 MCH 32.6 MCHC 33.1 RDW 15.1 H Plt Count 122 MPV 12.1 H Gran % 85.7 H Lymph % (Auto) 10.6 L [place] % (Auto) 3.5 Eos % (Auto) 0.1 L Baso % (Auto) 0.1 Gran # 7.14 H Lymph # 0.9 L [place] # 0.3 Eos # 0.0 Baso # 0.01 PT INR Sodium 141 Potassium 4.8 Chloride 106 Carbon Dioxide 27 Anion Gap 13 BUN 69 H Creatinine 1.0 Est GFR ( Amer) > 60 Est GFR (Non-Af Amer) > 60 POC Glucose (mg/dL) Random Glucose 134 H Calcium 8.9 Total Bilirubin 0.8 AST 29 ALT 32 Alkaline Phosphatase 42 Troponin I Total Protein 5.9 Albumin 3.4 Globulin 2.5 Albumin/Globulin Ratio 1.4 Digoxin Blood Type AB NEGATIVE Blood Type Confirm Antibody Screen Negative BBK History Checked No verified bt 05/08/17 05/08/17 05/08/17 14:25 16:07 17:00 WBC RBC Hgb Hct MCV MCH MCHC RDW Plt Count MPV Gran % Lymph % (Auto) [place] % (Auto) Eos % (Auto) Baso % (Auto) Gran # Lymph # [place] # Eos # Baso # PT INR Sodium Potassium Chloride Carbon Dioxide Anion Gap BUN Creatinine Est GFR ( Amer) Est GFR (Non-Af Amer) POC Glucose (mg/dL) 168 H Random Glucose Calcium Total Bilirubin AST ALT Alkaline Phosphatase Troponin I Total Protein Albumin Globulin Albumin/Globulin Ratio Digoxin 0.7 L Blood Type Blood Type Confirm AB NEGATIVE Antibody Screen BBK History Checked 05/08/17 05/08/17 05/08/17 17:00 17:00 17:00 WBC 7.6 RBC 3.27 L Hgb 10.5 L Hct 32.1 L MCV 98.2 MCH 32.1 MCHC 32.7 RDW 15.1 H Plt Count 114 L MPV 11.4 H Gran % Lymph % (Auto) [place] % (Auto) Eos % (Auto) Baso % (Auto) Gran # Lymph # [place] # Eos # Baso # PT 30.0 H INR 2.78 H Sodium 140 Potassium 4.4 Chloride 107 Carbon Dioxide 24 Anion Gap 13 BUN 73 H Creatinine 1.1 Est GFR ( Amer) > 60 Est GFR (Non-Af Amer) > 60 POC Glucose (mg/dL) Random Glucose 153 H Calcium 8.4 Total Bilirubin 0.9 AST 28 ALT 31 Alkaline Phosphatase 41 Troponin I 0.03 Total Protein 5.4 L Albumin 2.9 L Globulin 2.4 Albumin/Globulin Ratio 1.2 Digoxin Blood Type Blood Type Confirm Antibody Screen BBK History Checked Assessment & Plan - Assessment and Plan (Free Text) Assessment: 71 yo male with unabating epsitaxis in the setting of iatrogenic coagulopathy and questionable orbital floor fracture after fall. S/p packing and ENT evaluation. Will proceed with 4 FFP, vit K, CT of the face, ophthalmo consult, ICU monitoring. mechanical and DVT prophylaxis Plan: 71 yo male with unabating epsitaxis in the setting of iatrogenic coagulopathy and questionable orbital floor fracture after fall. S/p packing and ENT evaluation. Will proceed with 4 FFP, vit K, CT of the face, ophthalmo consult, ICU monitoring. mechanical and DVT prophylaxis - Date & Time Date: 05/08/17 Time: 19:00
[2017-05-08] MEDS: diltiaZEM IVPB 100mg in NS 100 ML IV PRN (19:14)
[2017-05-08] MEDS ORDERED: Scopolamine 1.5 mg/24 hr Patch TD SCH (19:45)
[2017-05-09] MEDS: Sodium Chloride 0.9% 1,000 ML IV SCH ×2 (03:00→13:06)
[2017-05-09] MEDS: diltiaZEM IVPB 100mg in NS 100 ML IV PRN (05:08)
[2017-05-09 06:21] LABS: ALB/GLOB RATIO 1.3 (1.1-1.8); ALT/SGPT 29 U/L (7-56); AST/SGOT 28 U/L (15-59); BLOOD UREA NITROGEN 74 mg/dL (7-21); CALCIUM 8.6 mg/dL (8.4-10.5); GFR AFRICAN-AMERICAN > 60; GFR NON-AFRICAN AMERICAN > 60; HDL CHOLESTEROL 50 mg/dL (29-60); MAGNESIUM 1.7 mg/dL (1.7-2.2)
[2017-05-09 06:25] LABS: BASO # 0.01 K/mm3 (0.0-2.0); BASO % 0.2 % (0.0-3.0); GRAN # 3.93 (1.4-6.5); GRAN % 74.8 % (50.0-68.0); LYMPH # 0.9 (1.2-3.4); LYMPH % 16.2 % (22.0-35.0); MEAN CELL VOLUME 97.2 fL (80.0-105.0); MEAN CORPUSCULAR HEMOGLOBIN 31.6 pg (25.0-35.0); MEAN CORPUSCULAR HGB CONC 32.5 g/dl (31.0-37.0); MEAN PLATELET VOLUME 11.8 fl (7.0-11.0); MONO # 0.5 (0.1-0.6); MONO % 8.8 % (1.0-6.0); PLATELET COUNT 80 10^3/uL (120.0-450.0); RBC 2.47 10^6/uL (3.5-6.1); RED CELL DISTRIBUTION WIDTH 15.3 % (11.5-14.5); WHITE BLOOD COUNT 5.3 10^3/ul (4.5-11.0)
[2017-05-09 06:31] LABS: INR 1.22 (0.93-1.08); PROTHROMBIN TIME 13.2 Seconds (9.9-11.8)
[2017-05-09 06:35] LABS: LDL CHOLESTEROL 42 mg/dL (0-129)
[2017-05-09 06:47] LABS: HEMOGLOBIN 7.8 gm/dL (14.0-18.0)
[2017-05-09 07:41] LABS: HEMOGLOBIN 8.2 gm/dL (14.0-18.0); MEAN CELL VOLUME 96.9 fL (80.0-105.0); MEAN CORPUSCULAR HEMOGLOBIN 31.9 pg (25.0-35.0); MEAN CORPUSCULAR HGB CONC 32.9 g/dl (31.0-37.0); MEAN PLATELET VOLUME 11.2 fl (7.0-11.0); RBC 2.57 10^6/uL (3.5-6.1); RED CELL DISTRIBUTION WIDTH 15.3 % (11.5-14.5); WHITE BLOOD COUNT 5.7 10^3/ul (4.5-11.0)
--- NOTE | 2017-05-09 07:56 | CP.PCM.PN ---
Subjective - Date & Time of Evaluation Date of Evaluation: 05/09/17 Time of Evaluation: 07:30 - Subjective Subjective: Pt sitting up in bed in ICU, at bedside, s/p repacking of nasal bleed yesterday w complaint of thirst, w nausea improved. Otherwise in NAD, s/p fall w possible head trauma. Objective - Vital Signs/Intake and Output Vital Signs (last 24 hours): Temp Pulse Resp BP Pulse Ox 98.9 F 101 H 19 145/80 94 L 05/09/17 04:00 05/09/17 05:08 05/09/17 04:45 05/09/17 05:08 05/09/17 04:45 Intake and Output: 05/09/17 05/09/17 06:59 18:59 Intake Total 1655 Output Total 2050 Balance -395 - Medications Medications: Current Medications Acetaminophen (Tylenol 650mg/20.3ml Solution Ud) 650 mg PO Q6H PRN PRN Reason: Pain, moderate (4-7) Allopurinol (Zyloprim) 300 mg PO DAILY EMI Atorvastatin Calcium (Lipitor) 20 mg PO DAILY EMI Digoxin (Lanoxin) 0.125 mg PO 1400 EMI Furosemide (Lasix) 40 mg PO DAILY EMI diltiaZEM IVPB 100mg in NS (Cardizem 100mg In Ns) 100 mls @ 10 mls/hr IV .Q10H PRN; Protocol; 10 MG/HR PRN Reason: TITRATE PER MD ORDER Last Admin: 05/09/17 05:08 Dose: 10 mg/hr, 10 mls/hr Sodium Chloride (Sodium Chloride 0.9%) 1,000 mls @ 100 mls/hr IV .Q10H EMI Last Admin: 05/09/17 03:00 Dose: 100 mls/hr Lamotrigine (Lamictal) 25 mg PO DAILY EMI PRN Reason: Protocol Ondansetron HCl (Zofran Inj) 4 mg IVP Q6H PRN PRN Reason: Nausea/Vomiting - Labs Labs: 05/09/17 05:30 05/09/17 05:30 PT 13.2 Seconds (9.9-11.8) H 05/09/17 05:30 INR 1.22 (0.93-1.08) H 05/09/17 05:30 APTT 39.5 Seconds (23.7-30.8) H 05/08/17 08:15 - Constitutional Appears: No Acute Distress - Head Exam Head Exam: NORMOCEPHALIC - ENT Exam ENT Exam: Mucous Membranes Dry - Neck Exam Additional comments: pos nasal packing - Respiratory Exam Respiratory Exam: Clear to Ausculation Bilateral, NORMAL BREATHING PATTERN - Cardiovascular Exam Cardiovascular Exam: Tachycardia, Irregular Rhythm - GI/Abdominal Exam GI & Abdominal Exam: Soft, Normal Bowel Sounds - Extremities Exam Extremities Exam: Normal Inspection - Neurological Exam Neurological Exam: Alert, Awake, Oriented x3 - Skin Additional comments: liset complexion Assessment and Plan (1) Afib Status: Acute (2) Epistaxis Status: Acute (3) Fall Status: Acute (4) Nausea Status: Acute (5) Anemia Assessment & Plan: Continue present regimen, as per consultants, repeat CBC, correct dehydration, foot extesion for bed, commode w assist, dc scopolamine use zofran prn,m sips of clears as toerated. monitor clinically Status: Acute (6) Anticoagulant long-term use Status: Acute (7) Dehydration Status: Acute
--- NOTE | 2017-05-09 09:42 | CARD ---
APPROVED REPORT EKG Measurement Heart [id number] <Conclusion> A. Fib with RVR Left axis deviation RVCD STTW changes c/w ischemia
--- NOTE | 2017-05-09 09:47 | CARD ---
APPROVED REPORT EKG Measurement Heart [id number] <Conclusion> Atrial fibrillation with rapid ventricular response Left axis deviation STTW changes c/w ischemia RVCD No change
--- NOTE | 2017-05-09 09:51 | CP.CCUPN ---
CCU Subjective - Physician Review Events Since Last Encounter (Free Text): 05/09/17 09:47 No acute events overnight After Nasal packing no further bleeding noted. HGB stabilized. Cardizem drip continued for A FIB CCU Objective - Vital Signs / Intake & Output Vital Signs (Last 4 hours): Vital Signs Temp Pulse 05/09/17 07:59 109 H 05/09/17 07:56 98.7 F 109 H Intake and Output (Last 8hrs): Intake & Output 05/08/17 05/09/17 05/09/17 22:59 06:59 14:59 Intake Total 240 1655 Output Total 150 2050 Balance 90 -395 Weight 254 lb 7 oz 252 lb Intake: IV 710 Diltiazem 110 Nsaline 500 Oral 240 Lipid 945 Output: Urine 150 1750 Urine, Voided 150 1750 Stool 0 Emesis 300 Other: Voiding Method Urinal # Bowel Movements 0 - Physical Exam Head: Positive for: Atraumatic, Normocephalic Pupils: Positive for: PERRL Extroacular Muscles: Positive for: EOMI Conjunctiva: Positive for: Normal Mouth: Positive for: Moist Mucous Membranes Pharnyx: Positive for: Other (no post nasal drip). Negative for: ERYTHEMA, EXUDATE Nose (External): Positive for: Other (nasal packing with blood crusting) Nose (Internal): Positive for: Other (bilateral packing in place). Negative for : No Active Bleeding Neck: Positive for: Normal Range of Motion Respiratory/Chest: Positive for: Clear to Auscultation, Good Air Exchange. Negative for: Respiratory Distress, Accessory Muscle Use Cardiovascular: Positive for: Regular Rate and Rhythm, Normal S1, S2, Irregular Rhythm. Negative for: Murmurs Abdomen: Positive for: Normal Bowel Sounds. Negative for: Tenderness, Distention, Peritoneal Signs Back: Positive for: Normal Inspection Upper Extremity: Positive for: Normal Inspection. Negative for: Cyanosis, Edema Lower Extremity: Positive for: Normal Inspection Neurological: Positive for: GCS=15, CN II-XII Intact, Speech Normal Skin: Positive for: Warm, Dry, Normal Color. Negative for: Rashes Psychiatric: Positive for: Alert, Oriented x 3, Normal Insight, Normal Concentration - Medications Active Medications: Active Medications Generic Name Dose Route Start Last Admin Trade Name Freq PRN Reason Stop Dose Admin Acetaminophen 650 mg 05/08/17 18:05 Tylenol 650mg/20.3ml Solution Ud PO Q6H PRN Pain, moderate (4-7) Allopurinol 300 mg 05/09/17 10:00 Zyloprim PO DAILY [facility] Atorvastatin Calcium 20 mg 05/09/17 10:00 Lipitor PO DAILY EMI Digoxin 0.125 mg 05/09/17 14:00 Lanoxin PO 1400 EMI Furosemide 40 mg 05/09/17 10:00 Lasix PO DAILY EMI diltiaZEM IVPB 100mg in NS 100 mls @ 10 mls/hr 05/08/17 16:33 05/09/17 05:08 Cardizem 100mg In Ns IV 10 mg/hr .Q10H PRN 10 mls/hr TITRATE PER MD ORDER Administration Protocol 10 MG/HR Sodium Chloride 1,000 mls @ 100 mls/hr 05/08/17 17:00 05/09/17 03:00 Sodium Chloride 0.9% IV 100 mls/hr .Q10H EMI Administration Ceftriaxone Sodium 1 gm in 100 mls @ 100 mls/hr 05/09/17 10:00 Rocephin 1 Gram Ivpb IVPB DAILY [facility] Protocol Lamotrigine 25 mg 05/09/17 10:00 Lamictal PO DAILY [facility] Protocol Ondansetron HCl 4 mg 05/09/17 07:24 Zofran Inj IVP Q6H PRN Nausea/Vomiting Ondansetron HCl 4 mg 05/09/17 09:31 Zofran Inj IVP Q4 PRN Nausea/Vomiting Pantoprazole Sodium 40 mg 05/09/17 10:00 Protonix Inj IVP DAILY EMI - Patient Studies Lab Studies: Lab Studies 05/09/17 05/09/17 05/09/17 Range/Units 07:30 05:30 05:30 WBC 5.7 (4.5-11.0) 10^3/ul RBC 2.57 L (3.5-6.1) 10^6/uL Hgb 8.2 L (14.0-18.0) gm/dL Hct 24.9 L (42.0-52.0) % MCV 96.9 (80.0-105.0) fL MCH 31.9 (25.0-35.0) pg MCHC 32.9 (31.0-37.0) g/dl RDW 15.3 H (11.5-14.5) % Plt Count 78 L (120.0-450.0) 10^3/uL MPV 11.2 H (7.0-11.0) fl Gran % (50.0-68.0) % Lymph % (Auto) (22.0-35.0) % [place] % (Auto) (1.0-6.0) % Eos % (Auto) (1.5-5.0) % Baso % (Auto) (0.0-3.0) % Gran # (1.4-6.5) Lymph # (1.2-3.4) [place] # (0.1-0.6) Eos # (0.0-0.7) Baso # (0.0-2.0) K/mm3 PT 13.2 H (9.9-11.8) Seconds INR 1.22 H (0.93-1.08) Sodium (132-148) mmol/L Potassium (3.6-5.0) mmol/L Chloride (98-107) mmol/L Carbon Dioxide (21-33) mmol/L Anion Gap (10-20) BUN (7-21) mg/dL Creatinine (0.5-1.4) mg/dL Est GFR ( Amer) Est GFR (Non-Af Amer) POC Glucose (mg/dL) (65-110) mg/dL Random Glucose (70-110) mg/dL Lactic Acid (0.7-2.1) mmol/L Calcium (8.4-10.5) mg/dL Phosphorus (2.5-4.5) mg/dL Magnesium (1.7-2.2) mg/dL Total Bilirubin (0.2-1.3) mg/dL AST (15-59) U/L ALT (7-56) U/L Alkaline Phosphatase (38-133) U/L Troponin I ng/mL Total Protein (5.8-8.3) g/dL Albumin (3.0-4.8) g/dL Globulin gm/dL Albumin/Globulin Ratio (1.1-1.8) Triglycerides (35-160) mg/dL Cholesterol (130-200) mg/dL LDL Cholesterol Direct (0-129) mg/dL HDL Cholesterol (29-60) mg/dL TSH 3rd Generation 1.42 (0.46-4.68) mIU/mL Digoxin (0.8-2.0) ng/mL Blood Type Blood Type Confirm Antibody Screen Crossmatch BBK History Checked 05/09/17 05/09/17 05/08/17 Range/Units 05:30 05:30 19:15 WBC 5.3 D (4.5-11.0) 10^3/ul RBC 2.47 L (3.5-6.1) 10^6/uL Hgb 7.8 L D (14.0-18.0) gm/dL Hct 24.0 L (42.0-52.0) % MCV 97.2 (80.0-105.0) fL MCH 31.6 (25.0-35.0) pg MCHC 32.5 (31.0-37.0) g/dl RDW 15.3 H (11.5-14.5) % Plt Count 80 L (120.0-450.0) 10^3/uL MPV 11.8 H (7.0-11.0) fl Gran % 74.8 H (50.0-68.0) % Lymph % (Auto) 16.2 L (22.0-35.0) % [place] % (Auto) 8.8 H (1.0-6.0) % Eos % (Auto) 0.0 L (1.5-5.0) % Baso % (Auto) 0.2 (0.0-3.0) % Gran # 3.93 (1.4-6.5) Lymph # 0.9 L (1.2-3.4) [place] # 0.5 (0.1-0.6) Eos # 0.0 (0.0-0.7) Baso # 0.01 (0.0-2.0) K/mm3 PT (9.9-11.8) Seconds INR (0.93-1.08) Sodium 142 (132-148) mmol/L Potassium 3.9 (3.6-5.0) mmol/L Chloride 108 H (98-107) mmol/L Carbon Dioxide 27 (21-33) mmol/L Anion Gap 11 (10-20) BUN 74 H (7-21) mg/dL Creatinine 1.1 (0.5-1.4) mg/dL Est GFR ( Amer) > 60 Est GFR (Non-Af Amer) > 60 POC Glucose (mg/dL) (65-110) mg/dL Random Glucose 110 (70-110) mg/dL Lactic Acid 1.7 (0.7-2.1) mmol/L Calcium 8.6 (8.4-10.5) mg/dL Phosphorus 2.9 (2.5-4.5) mg/dL Magnesium 1.7 (1.7-2.2) mg/dL Total Bilirubin 1.6 H (0.2-1.3) mg/dL AST 28 (15-59) U/L ALT 29 (7-56) U/L Alkaline Phosphatase 41 (38-133) U/L Troponin I ng/mL Total Protein 5.4 L (5.8-8.3) g/dL Albumin 3.0 (3.0-4.8) g/dL Globulin 2.4 gm/dL Albumin/Globulin Ratio 1.3 (1.1-1.8) Triglycerides 132 (35-160) mg/dL Cholesterol 114 L (130-200) mg/dL LDL Cholesterol Direct 42 (0-129) mg/dL HDL Cholesterol 50 (29-60) mg/dL TSH 3rd Generation (0.46-4.68) mIU/mL Digoxin (0.8-2.0) ng/mL Blood Type Blood Type Confirm Antibody Screen Crossmatch BBK History Checked 05/08/17 05/08/17 05/08/17 Range/Units 17:00 17:00 17:00 WBC 7.6 (4.5-11.0) 10^3/ul RBC 3.27 L (3.5-6.1) 10^6/uL Hgb 10.5 L (14.0-18.0) gm/dL Hct 32.1 L (42.0-52.0) % MCV 98.2 (80.0-105.0) fL MCH 32.1 (25.0-35.0) pg MCHC 32.7 (31.0-37.0) g/dl RDW 15.1 H (11.5-14.5) % Plt Count 114 L (120.0-450.0) 10^3/uL MPV 11.4 H (7.0-11.0) fl Gran % (50.0-68.0) % Lymph % (Auto) (22.0-35.0) % [place] % (Auto) (1.0-6.0) % Eos % (Auto) (1.5-5.0) % Baso % (Auto) (0.0-3.0) % Gran # (1.4-6.5) Lymph # (1.2-3.4) [place] # (0.1-0.6) Eos # (0.0-0.7) Baso # (0.0-2.0) K/mm3 PT 30.0 H (9.9-11.8) Seconds INR 2.78 H (0.93-1.08) Sodium 140 (132-148) mmol/L Potassium 4.4 (3.6-5.0) mmol/L Chloride 107 (98-107) mmol/L Carbon Dioxide 24 (21-33) mmol/L Anion Gap 13 (10-20) BUN 73 H (7-21) mg/dL Creatinine 1.1 (0.5-1.4) mg/dL Est GFR ( Amer) > 60 Est GFR (Non-Af Amer) > 60 POC Glucose (mg/dL) (65-110) mg/dL Random Glucose 153 H (70-110) mg/dL Lactic Acid (0.7-2.1) mmol/L Calcium 8.4 (8.4-10.5) mg/dL Phosphorus (2.5-4.5) mg/dL Magnesium (1.7-2.2) mg/dL Total Bilirubin 0.9 (0.2-1.3) mg/dL AST 28 (15-59) U/L ALT 31 (7-56) U/L Alkaline Phosphatase 41 (38-133) U/L Troponin I 0.03 ng/mL Total Protein 5.4 L (5.8-8.3) g/dL Albumin 2.9 L (3.0-4.8) g/dL Globulin 2.4 gm/dL Albumin/Globulin Ratio 1.2 (1.1-1.8) Triglycerides (35-160) mg/dL Cholesterol (130-200) mg/dL LDL Cholesterol Direct (0-129) mg/dL HDL Cholesterol (29-60) mg/dL TSH 3rd Generation (0.46-4.68) mIU/mL Digoxin (0.8-2.0) ng/mL Blood Type Blood Type Confirm Antibody Screen Crossmatch BBK History Checked 05/08/17 05/08/17 05/08/17 Range/Units 17:00 16:07 14:25 WBC (4.5-11.0) 10^3/ul RBC (3.5-6.1) 10^6/uL Hgb (14.0-18.0) gm/dL Hct (42.0-52.0) % MCV (80.0-105.0) fL MCH (25.0-35.0) pg MCHC (31.0-37.0) g/dl RDW (11.5-14.5) % Plt Count (120.0-450.0) 10^3/uL MPV (7.0-11.0) fl Gran % (50.0-68.0) % Lymph % (Auto) (22.0-35.0) % [place] % (Auto) (1.0-6.0) % Eos % (Auto) (1.5-5.0) % Baso % (Auto) (0.0-3.0) % Gran # (1.4-6.5) Lymph # (1.2-3.4) [place] # (0.1-0.6) Eos # (0.0-0.7) Baso # (0.0-2.0) K/mm3 PT (9.9-11.8) Seconds INR (0.93-1.08) Sodium (132-148) mmol/L Potassium (3.6-5.0) mmol/L Chloride (98-107) mmol/L Carbon Dioxide (21-33) mmol/L Anion Gap (10-20) BUN (7-21) mg/dL Creatinine (0.5-1.4) mg/dL Est GFR ( Amer) Est GFR (Non-Af Amer) POC Glucose (mg/dL) 168 H (65-110) mg/dL Random Glucose (70-110) mg/dL Lactic Acid (0.7-2.1) mmol/L Calcium (8.4-10.5) mg/dL Phosphorus (2.5-4.5) mg/dL Magnesium (1.7-2.2) mg/dL Total Bilirubin (0.2-1.3) mg/dL AST (15-59) U/L ALT (7-56) U/L Alkaline Phosphatase (38-133) U/L Troponin I ng/mL Total Protein (5.8-8.3) g/dL Albumin (3.0-4.8) g/dL Globulin gm/dL Albumin/Globulin Ratio (1.1-1.8) Triglycerides (35-160) mg/dL Cholesterol (130-200) mg/dL LDL Cholesterol Direct (0-129) mg/dL HDL Cholesterol (29-60) mg/dL TSH 3rd Generation (0.46-4.68) mIU/mL Digoxin 0.7 L (0.8-2.0) ng/mL Blood Type Blood Type Confirm AB NEGATIVE Antibody Screen Crossmatch BBK History Checked 05/08/17 05/08/17 05/08/17 Range/Units 13:35 13:35 13:35 WBC 8.3 D (4.5-11.0) 10^3/ul RBC 3.56 (3.5-6.1) 10^6/uL Hgb 11.6 L (14.0-18.0) gm/dL Hct 35.0 L (42.0-52.0) % MCV 98.3 (80.0-105.0) fL MCH 32.6 (25.0-35.0) pg MCHC 33.1 (31.0-37.0) g/dl RDW 15.1 H (11.5-14.5) % Plt Count 122 (120.0-450.0) 10^3/uL MPV 12.1 H (7.0-11.0) fl Gran % 85.7 H (50.0-68.0) % Lymph % (Auto) 10.6 L (22.0-35.0) % [place] % (Auto) 3.5 (1.0-6.0) % Eos % (Auto) 0.1 L (1.5-5.0) % Baso % (Auto) 0.1 (0.0-3.0) % Gran # 7.14 H (1.4-6.5) Lymph # 0.9 L (1.2-3.4) [place] # 0.3 (0.1-0.6) Eos # 0.0 (0.0-0.7) Baso # 0.01 (0.0-2.0) K/mm3 PT (9.9-11.8) Seconds INR (0.93-1.08) Sodium 141 (132-148) mmol/L Potassium 4.8 (3.6-5.0) mmol/L Chloride 106 (98-107) mmol/L Carbon Dioxide 27 (21-33) mmol/L Anion Gap 13 (10-20) BUN 69 H (7-21) mg/dL Creatinine 1.0 (0.5-1.4) mg/dL Est GFR ( Amer) > 60 Est GFR (Non-Af Amer) > 60 POC Glucose (mg/dL) (65-110) mg/dL Random Glucose 134 H (70-110) mg/dL Lactic Acid (0.7-2.1) mmol/L Calcium 8.9 (8.4-10.5) mg/dL Phosphorus (2.5-4.5) mg/dL Magnesium (1.7-2.2) mg/dL Total Bilirubin 0.8 (0.2-1.3) mg/dL AST 29 (15-59) U/L ALT 32 (7-56) U/L Alkaline Phosphatase 42 (38-133) U/L Troponin I ng/mL Total Protein 5.9 (5.8-8.3) g/dL Albumin 3.4 (3.0-4.8) g/dL Globulin 2.5 gm/dL Albumin/Globulin Ratio 1.4 (1.1-1.8) Triglycerides (35-160) mg/dL Cholesterol (130-200) mg/dL LDL Cholesterol Direct (0-129) mg/dL HDL Cholesterol (29-60) mg/dL TSH 3rd Generation (0.46-4.68) mIU/mL Digoxin (0.8-2.0) ng/mL Blood Type AB NEGATIVE Blood Type Confirm Antibody Screen Negative Crossmatch See Detail BBK History Checked No verified bt Laboratory Results - last 24 hr 05/08/17 05/08/17 05/08/17 13:35 13:35 13:35 WBC 8.3 D RBC 3.56 Hgb 11.6 L Hct 35.0 L MCV 98.3 MCH 32.6 MCHC 33.1 RDW 15.1 H Plt Count 122 MPV 12.1 H Gran % 85.7 H Lymph % (Auto) 10.6 L [place] % (Auto) 3.5 Eos % (Auto) 0.1 L Baso % (Auto) 0.1 Gran # 7.14 H Lymph # 0.9 L [place] # 0.3 Eos # 0.0 Baso # 0.01 PT INR Sodium 141 Potassium 4.8 Chloride 106 Carbon Dioxide 27 Anion Gap 13 BUN 69 H Creatinine 1.0 Est GFR ( Amer) > 60 Est GFR (Non-Af Amer) > 60 POC Glucose (mg/dL) Random Glucose 134 H Lactic Acid Calcium 8.9 Phosphorus Magnesium Total Bilirubin 0.8 AST 29 ALT 32 Alkaline Phosphatase 42 Troponin I Total Protein 5.9 Albumin 3.4 Globulin 2.5 Albumin/Globulin Ratio 1.4 Triglycerides Cholesterol LDL Cholesterol Direct HDL Cholesterol TSH 3rd Generation Digoxin Blood Type AB NEGATIVE Blood Type Confirm Antibody Screen Negative Crossmatch See Detail BBK History Checked No verified bt 05/08/17 05/08/17 05/08/17 14:25 16:07 17:00 WBC RBC Hgb Hct MCV MCH MCHC RDW Plt Count MPV Gran % Lymph % (Auto) [place] % (Auto) Eos % (Auto) Baso % (Auto) Gran # Lymph # [place] # Eos # Baso # PT INR Sodium Potassium Chloride Carbon Dioxide Anion Gap BUN Creatinine Est GFR ( Amer) Est GFR (Non-Af Amer) POC Glucose (mg/dL) 168 H Random Glucose Lactic Acid Calcium Phosphorus Magnesium Total Bilirubin AST ALT Alkaline Phosphatase Troponin I Total Protein Albumin Globulin Albumin/Globulin Ratio Triglycerides Cholesterol LDL Cholesterol Direct HDL Cholesterol TSH 3rd Generation Digoxin 0.7 L Blood Type Blood Type Confirm AB NEGATIVE Antibody Screen Crossmatch BBK History Checked 05/08/17 05/08/17 05/08/17 17:00 17:00 17:00 WBC 7.6 RBC 3.27 L Hgb 10.5 L Hct 32.1 L MCV 98.2 MCH 32.1 MCHC 32.7 RDW 15.1 H Plt Count 114 L MPV 11.4 H Gran % Lymph % (Auto) [place] % (Auto) Eos % (Auto) Baso % (Auto) Gran # Lymph # [place] # Eos # Baso # PT 30.0 H INR 2.78 H Sodium 140 Potassium 4.4 Chloride 107 Carbon Dioxide 24 Anion Gap 13 BUN 73 H Creatinine 1.1 Est GFR ( Amer) > 60 Est GFR (Non-Af Amer) > 60 POC Glucose (mg/dL) Random Glucose 153 H Lactic Acid Calcium 8.4 Phosphorus Magnesium Total Bilirubin 0.9 AST 28 ALT 31 Alkaline Phosphatase 41 Troponin I 0.03 Total Protein 5.4 L Albumin 2.9 L Globulin 2.4 Albumin/Globulin Ratio 1.2 Triglycerides Cholesterol LDL Cholesterol Direct HDL Cholesterol TSH 3rd Generation Digoxin Blood Type Blood Type Confirm Antibody Screen Crossmatch BBK History Checked 05/08/17 05/09/17 05/09/17 19:15 05:30 05:30 WBC 5.3 D RBC 2.47 L Hgb 7.8 L D Hct 24.0 L MCV 97.2 MCH 31.6 MCHC 32.5 RDW 15.3 H Plt Count 80 L MPV 11.8 H Gran % 74.8 H Lymph % (Auto) 16.2 L [place] % (Auto) 8.8 H Eos % (Auto) 0.0 L Baso % (Auto) 0.2 Gran # 3.93 Lymph # 0.9 L [place] # 0.5 Eos # 0.0 Baso # 0.01 PT INR Sodium 142 Potassium 3.9 Chloride 108 H Carbon Dioxide 27 Anion Gap 11 BUN 74 H Creatinine 1.1 Est GFR ( Amer) > 60 Est GFR (Non-Af Amer) > 60 POC Glucose (mg/dL) Random Glucose 110 Lactic Acid 1.7 Calcium 8.6 Phosphorus 2.9 Magnesium 1.7 Total Bilirubin 1.6 H AST 28 ALT 29 Alkaline Phosphatase 41 Troponin I Total Protein 5.4 L Albumin 3.0 Globulin 2.4 Albumin/Globulin Ratio 1.3 Triglycerides 132 Cholesterol 114 L LDL Cholesterol Direct 42 HDL Cholesterol 50 TSH 3rd Generation Digoxin Blood Type Blood Type Confirm Antibody Screen Crossmatch BBK History Checked 05/09/17 05/09/17 05/09/17 05:30 05:30 07:30 WBC 5.7 RBC 2.57 L Hgb 8.2 L Hct 24.9 L MCV 96.9 MCH 31.9 MCHC 32.9 RDW 15.3 H Plt Count 78 L MPV 11.2 H Gran % Lymph % (Auto) [place] % (Auto) Eos % (Auto) Baso % (Auto) Gran # Lymph # [place] # Eos # Baso # PT 13.2 H INR 1.22 H Sodium Potassium Chloride Carbon Dioxide Anion Gap BUN Creatinine Est GFR ( Amer) Est GFR (Non-Af Amer) POC Glucose (mg/dL) Random Glucose Lactic Acid Calcium Phosphorus Magnesium Total Bilirubin AST ALT Alkaline Phosphatase Troponin I Total Protein Albumin Globulin Albumin/Globulin Ratio Triglycerides Cholesterol LDL Cholesterol Direct HDL Cholesterol TSH 3rd Generation 1.42 Digoxin Blood Type Blood Type Confirm Antibody Screen Crossmatch BBK History Checked EKG/Cardiology Studies: Cardiology / EKG Studies 05/08/17 14:27 EKG [ELECTROCARDIOGRAM] Stat Comment: Reason For Exam: NOSE BLEED 05/08/17 16:19 EKG [ELECTROCARDIOGRAM] Stat Comment: Reason For Exam: RAPID RESPONSE Review of Systems - EENT Eyes: UNREMARKABLE Ears: UNREMARKABLE Nose/Mouth/Throat: UNREMARKABLE - Cardiovascular Cardiovascular: UNREMARKABLE - Respiratory Respiratory: UNREMARKABLE - Gastrointestinal Gastrointestinal: UNREMARKABLE - Genitourinary Genitourinary: UNREMARKABLE - Musculoskeletal Musculoskeletal: UNREMARKABLE - Integumentary Integumentary: UNREMARKABLE Critical Care Progress Note - Ventilator Checklist Head of Bed 30 Degrees: Yes PUD Prophalyxis: Yes DVT Prophylaxis: Yes - Nutrition Nutrition: Nutrition Category Date Time Status Liquid Diet [DIET] Diets 05/09/17 Lunch Ordered Assessment/Plan - Assessment and Plan (Free Text) Assessment: 71 y/o M w/ A FIB on anticoagulation w/ Nasal bleeding S/P Nasal Packing by ENT. Currently no further bleeding noted. HGB > 7.9. Platelets > 20K. PRBC on HOLD. S/P FFP transfusion. Anticoagulation on hold. Keep INR<2 A FIB- On cardizem drip, plan to start p.o cardizem and transition today. D/W cardiology. CT OMF to be determined by ENT, but unlikely fx noted clinically. Diet as tolerated. SCD for dvt P. Seizure d/o continue p.o medications. cc time 55 min
[2017-05-09] MEDS: cefTRIAXone 1 gm 1 GM/100 ML BAG IVPB SCH (10:36)
--- NOTE | 2017-05-09 12:18 | CP.PCM.PN ---
Subjective - Date & Time of Evaluation Date of Evaluation: 05/09/17 Time of Evaluation: 12:10 - Subjective Subjective: c/o hadache Left nasal packing A Fib Objective - Vital Signs/Intake and Output Vital Signs (last 24 hours): Temp Pulse Resp BP Pulse Ox 98.7 F 110 H 25 H 155/82 H 98 05/09/17 07:56 05/09/17 10:01 05/09/17 10:01 05/09/17 10:35 05/09/17 10:01 Intake and Output: 05/09/17 05/09/17 06:59 18:59 Intake Total 1655 Output Total 2050 Balance -395 - Medications Medications: Current Medications Acetaminophen (Tylenol 650mg/20.3ml Solution Ud) 650 mg PO Q6H PRN PRN Reason: Pain, moderate (4-7) Allopurinol (Zyloprim) 300 mg PO DAILY [facility] Atorvastatin Calcium (Lipitor) 20 mg PO DAILY [facility] Last Admin: 05/09/17 10:36 Dose: 20 mg Digoxin (Lanoxin) 0.125 mg PO 1400 [facility] Furosemide (Lasix) 40 mg PO DAILY [facility] Last Admin: 05/09/17 10:35 Dose: 40 mg diltiaZEM IVPB 100mg in NS (Cardizem 100mg In Ns) 100 mls @ 10 mls/hr IV .Q10H PRN; Protocol; 10 MG/HR PRN Reason: TITRATE PER MD ORDER Last Admin: 05/09/17 05:08 Dose: 10 mg/hr, 10 mls/hr Sodium Chloride (Sodium Chloride 0.9%) 1,000 mls @ 100 mls/hr IV .Q10H [facility] Last Admin: 05/09/17 03:00 Dose: 100 mls/hr Ceftriaxone Sodium (Rocephin 1 Gram Ivpb) 1 gm in 100 mls @ 100 mls/hr IVPB DAILY [facility] PRN Reason: Protocol Last Admin: 05/09/17 10:36 Dose: 100 mls/hr Lamotrigine (Lamictal) 25 mg PO DAILY [facility] PRN Reason: Protocol Ondansetron HCl (Zofran Inj) 4 mg IVP Q6H PRN PRN Reason: Nausea/Vomiting Ondansetron HCl (Zofran Inj) 4 mg IVP Q4 PRN PRN Reason: Nausea/Vomiting Pantoprazole Sodium (Protonix Inj) 40 mg IVP DAILY [facility] Last Admin: 05/09/17 10:32 Dose: 40 mg - Labs Labs: 05/09/17 07:30 05/09/17 05:30 PT 13.2 Seconds (9.9-11.8) H 05/09/17 05:30 INR 1.22 (0.93-1.08) H 05/09/17 05:30 APTT 39.5 Seconds (23.7-30.8) H 05/08/17 08:15 - Head Exam Additional comments: Facial ecchymosis Lt. nasal packing - Neck Exam Neck Exam: Normal Inspection - Respiratory Exam Respiratory Exam: Clear to Ausculation Bilateral - Cardiovascular Exam Cardiovascular Exam: Irregular Rhythm - Extremities Exam Extremities Exam: Normal Inspection Assessment and Plan - Assessment and Plan (Free Text) Assessment: A Fib S/P Jarrell procedure S/P Fall Epistaxis Non-ischemic CM ? Lt. orbital Fx Plan: Cont. Acetaminophen (Tylenol 650mg/20.3ml Solution Ud) 650 mg PO Q6H PRN PRN Reason: Pain, moderate (4-7) Allopurinol (Zyloprim) 300 mg PO DAILY [facility] Atorvastatin Calcium (Lipitor) 20 mg PO DAILY [facility] Last Admin: 05/09/17 10:36 Dose: 20 mg Digoxin (Lanoxin) 0.125 mg PO 1400 [facility] Furosemide (Lasix) 40 mg PO DAILY [facility] Last Admin: 05/09/17 10:35 Dose: 40 mg diltiaZEM IVPB 100mg in NS (Cardizem 100mg In Ns) 100 mls @ 10 mls/hr IV .Q10H PRN; Protocol; 10 MG/HR PRN Reason: TITRATE PER MD ORDER Last Admin: 05/09/17 05:08 Dose: 10 mg/hr, 10 mls/hr Sodium Chloride (Sodium Chloride 0.9%) 1,000 mls @ 100 mls/hr IV .Q10H [facility] Last Admin: 05/09/17 03:00 Dose: 100 mls/hr Ceftriaxone Sodium (Rocephin 1 Gram Ivpb) 1 gm in 100 mls @ 100 mls/hr IVPB DAILY EMI PRN Reason: Protocol Last Admin: 05/09/17 10:36 Dose: 100 mls/hr Lamotrigine (Lamictal) 25 mg PO DAILY [facility] PRN Reason: Protocol Ondansetron HCl (Zofran Inj) 4 mg IVP Q6H PRN PRN Reason: Nausea/Vomiting Ondansetron HCl (Zofran Inj) 4 mg IVP Q4 PRN PRN Reason: Nausea/Vomiting Pantoprazole Sodium (Protonix Inj) 40 mg IVP DAILY [facility] Last Admin: 05/09/17 10:32 Dose: 40 mg Echo reviewed Septal hypokinesis, normal EF F/U [place] Facial CT scan
--- NOTE | 2017-05-09 12:19 | CT ---
PROCEDURE: CT MAXILLOFACIAL BONES WITHOUT CONTRAST HISTORY: orbital floor fracture COMPARISON: None TECHNIQUE: Contiguous axial CT images of the maxillofacial bones were obtained. Coronal and sagittal reformats were generated. Radiation dose: Total exam DLP = 772 mGy-cm. This CT exam was performed using one or more of the following dose reduction techniques: Automated exposure control, adjustment of the mA and/or kV according to patient size, and/or use of iterative reconstruction technique. FINDINGS: NASAL BONES: Deviation of the nose to the left probably due to chronic fractures. ORBITS: No evidence of orbital floor fracture PARANASAL SINUSES/ MASTOIDS: Clear. MAXILLA: There is blood in the left maxillary sinus with a density of 72 Hounsfield units. MANDIBLE/ TEMPOROMANDIBULAR JOINTS: Unremarkable. SKULL BASE: Unremarkable. TEMPORAL BONES: Middle ears and mastoid grossly unremarkable. OTHER FINDINGS: Blood intermixed with air is seen in the posterior nasopharynx. There is a catheter in the left nasal cavity. IMPRESSION: Blood in the left maxillary sinus. No evidence of maxillary or orbital fracture.
--- NOTE | 2017-05-09 12:37 | CT ---
PROCEDURE: CT Abdomen and Pelvis without intravenous contrast HISTORY: rectal bleed COMPARISON: None. TECHNIQUE: Without contrast. Contrast Dose: Radiation dose: Total exam DLP = 1323 mGy-cm. This CT exam was performed using one or more of the following dose reduction techniques: Automated exposure control, adjustment of the mA and/or kV according to patient size, and/or use of iterative reconstruction technique. FINDINGS: LOWER THORAX: Scarring at the right lung base LIVER: Unremarkable. No gross lesion or ductal dilatation. GALLBLADDER AND BILE DUCTS: Unremarkable. PANCREAS: Unremarkable. No gross lesion or ductal dilatation. SPLEEN: Unremarkable. ADRENALS: Unremarkable. No mass. KIDNEYS AND URETERS: Unremarkable. No hydronephrosis. No solid mass. VASCULATURE: Unremarkable. No aortic aneurysm. BOWEL: Unremarkable. No obstruction. No gross mural thickening. There is diverticulosis of the sigmoid colon. There is no obvious mass in the colon APPENDIX: Unremarkable. Normal appendix. PERITONEUM: Unremarkable. No free fluid. No free air. LYMPH NODES: Unremarkable. No enlarged lymph nodes. BLADDER: Unremarkable. REPRODUCTIVE: Unremarkable. BONES: No acute fracture. OTHER FINDINGS: None. IMPRESSION: Diverticulosis of the sigmoid colon. No acute intra-abdominal findings
--- NOTE | 2017-05-09 15:56 | RAD ---
PROCEDURE: Right Knee Radiographs. HISTORY: pt fell and struck head COMPARISON: None. FINDINGS: BONES: Right knee prosthesis JOINTS: Normal. No osteoarthritis. JOINT EFFUSION: None. OTHER FINDINGS: None. IMPRESSION: No acute findings
[2017-05-09] MEDS: Digoxin 125 mcg (0.125 mg) Tab PO SCH (20:12)
--- NOTE | 2017-05-09 22:10 | CP.PCM.PN ---
Subjective - Date & Time of Evaluation Date of Evaluation: 05/09/17 Time of Evaluation: 14:00 - Subjective Subjective: feel better no chest pain ,no dyspnea, still on iv crdizem, race nose oozing blood, anxious, next to the bed side Objective - Vital Signs/Intake and Output Vital Signs (last 24 hours): Temp Pulse Resp BP Pulse Ox 98.8 F 91 H 23 151/89 H 96 05/09/17 16:00 05/09/17 19:30 05/09/17 19:30 05/09/17 19:20 05/09/17 19:30 - Medications Medications: Current Medications Acetaminophen (Tylenol 650mg/20.3ml Solution Ud) 650 mg PO Q6H PRN PRN Reason: Pain, moderate (4-7) Allopurinol (Zyloprim) 300 mg PO DAILY [facility] Last Admin: 05/09/17 20:16 Dose: Not Given Atorvastatin Calcium (Lipitor) 20 mg PO DAILY [facility] Last Admin: 05/09/17 10:36 Dose: 20 mg Digoxin (Lanoxin) 0.125 mg PO 1400 [facility] Last Admin: 05/09/17 20:12 Dose: 0.125 mg Diltiazem HCl (Cardizem) 30 mg PO TID [facility] Last Admin: 05/09/17 19:20 Dose: 30 mg Furosemide (Lasix) 40 mg PO DAILY [facility] Last Admin: 05/09/17 10:35 Dose: 40 mg diltiaZEM IVPB 100mg in NS (Cardizem 100mg In Ns) 100 mls @ 10 mls/hr IV .Q10H PRN; Protocol; 10 MG/HR PRN Reason: TITRATE PER MD ORDER Last Admin: 05/09/17 05:08 Dose: 10 mg/hr, 10 mls/hr Sodium Chloride (Sodium Chloride 0.9%) 1,000 mls @ 100 mls/hr IV .Q10H [facility] Last Admin: 05/09/17 13:06 Dose: 100 mls/hr Ceftriaxone Sodium (Rocephin 1 Gram Ivpb) 1 gm in 100 mls @ 100 mls/hr IVPB DAILY [facility] PRN Reason: Protocol Last Admin: 05/09/17 10:36 Dose: 100 mls/hr Lamotrigine (Lamictal) 25 mg PO DAILY [facility] PRN Reason: Protocol Last Admin: 05/09/17 20:11 Dose: 25 mg Ondansetron HCl (Zofran Inj) 4 mg IVP Q6H PRN PRN Reason: Nausea/Vomiting Ondansetron HCl (Zofran Inj) 4 mg IVP Q4 PRN PRN Reason: Nausea/Vomiting Pantoprazole Sodium (Protonix Inj) 40 mg IVP DAILY [facility] Last Admin: 05/09/17 10:32 Dose: 40 mg Zolpidem Tartrate (Ambien) 5 mg PO HS PRN; Protocol PRN Reason: Insomnia Last Admin: 05/09/17 21:30 Dose: 5 mg - Labs Labs: 05/09/17 07:30 05/09/17 05:30 PT 13.2 Seconds (9.9-11.8) H 05/09/17 05:30 INR 1.22 (0.93-1.08) H 05/09/17 05:30 APTT 39.5 Seconds (23.7-30.8) H 05/08/17 08:15 - Constitutional Appears: Well - Head Exam Additional comments: nasal packing mild red left cheeck - Eye Exam Eye Exam: Conjunctival injection, EOMI, Normal appearance, Nystagmus, Periorbital swelling, Periorbital tenderness, PERRL, Scleral icterus Pupil Exam: NORMAL ACCOMODATION, PERRL - ENT Exam Additional comments: nasal packing - Respiratory Exam Respiratory Exam: Clear to Ausculation Bilateral, NORMAL BREATHING PATTERN - Cardiovascular Exam Cardiovascular Exam: Tachycardia - GI/Abdominal Exam GI & Abdominal Exam: Soft, Normal Bowel Sounds. absent: Tenderness - Rectal Exam Rectal Exam: NORMAL INSPECTION - Neurological Exam Neurological Exam: Alert, Awake, CN II-XII Intact, Normal Gait, Oriented x3 - Psychiatric Exam Psychiatric exam: Normal Affect, Normal Mood - Skin Skin Exam: Dry, Intact, Normal Color, Warm Assessment and Plan - Assessment and Plan (Free Text) Assessment: nose bleed stable coagulopathy s/p transfusion ffp. 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
--- NOTE | 2017-05-09 22:18 | CP.PCM.HP ---
History of Present Illness - History of Present Illness History of Present Illness: patient was seen on 05/08/2017 in icu, came with nose bleed ,he is on warfarin used ibuprofen for neck pain for last few days also had nasal symptoms ,blow his nose exceesivly, h/o nose blle on commodin 4 years ago cauterised befor,, in er he has black stool, vomited dark red blood, seen by ent and nasal packing was done, he morphine fell head trauma , ct head done later no fever no headach. felt noeaou Present on Admission - Present on Admission Any Indicators Present on Admission: No History of DVT/PE: No History of Uncontrolled Diabetes: No Urinary Catheter: No Decubitus Ulcer Present: No History Surgical Site Infection Following: None - Notes: Notes:: patient seen 9 pm Past Patient History - Infectious Disease Hx of Infectious Diseases: None - Past Social History Smoking Status: Current Some Days Smoker - CARDIAC Hx Atrial Fibrillation: Yes Hx Hypertension: Yes Other/Comment: Pt had ablation for the Afib - PULMONARY Hx Respiratory Disorders: No - NEUROLOGICAL Hx Neurological Disorder: No - HEENT Hx HEENT Problems: No - RENAL Hx Chronic Kidney Disease: No - ENDOCRINE/METABOLIC Hx Endocrine Disorders: No - HEMATOLOGICAL/ONCOLOGICAL Hx Blood Disorders: No - INTEGUMENTARY Hx Dermatological Problems: No - MUSCULOSKELETAL/RHEUMATOLOGICAL Hx Musculoskeletal Disorders: No - GASTROINTESTINAL Hx Gastrointestinal Disorders: No - GENITOURINARY/GYNECOLOGICAL Hx Genitourinary Disorders: No - PSYCHIATRIC Hx Psychophysiologic Disorder: No Hx Substance Use: No - SURGICAL HISTORY Hx Surgeries: No - ANESTHESIA Hx Anesthesia: No Hx Anesthesia Reactions: No Hx Malignant Hyperthermia: No Meds Home Medications: Home Medication List Medication Instructions Recorded Confirmed Type Amoxicillin/Clavulanate [Augmentin 1 tab PO BID #10 tab 05/08/17 Rx 875 MG-125 MG] Allergies/Adverse Reactions: Allergies Allergy/AdvReac Type Severity Reaction Status Date / Time No Known Allergies Allergy Unverified 05/08/17 08:04 Physical Exam - Constitutional Appears: Well - Head Exam Head Exam: ATRAUMATIC - Eye Exam Eye Exam: EOMI, Normal appearance - ENT Exam Additional comments: left nasal packing, - Cardiovascular Exam Cardiovascular Exam: Tachycardia, Irregular Rhythm - GI/Abdominal Exam GI & Abdominal Exam: Normal Bowel Sounds, Soft. absent: Tenderness - Neurological Exam Neurological exam: Alert, Altered, CN II-XII Intact, Normal Gait, Oriented x3, Reflexes Normal - Psychiatric Exam Psychiatric exam: Anxious - Skin Skin Exam: Abrasion Results - Vital Signs Recent Vital Signs: Last Vital Signs Temp 98.7 F 05/09/17 07:56 Pulse 102 H 05/09/17 09:30 Resp 19 05/09/17 09:30 BP 137/73 05/09/17 09:00 Pulse Ox 97 05/09/17 09:30 - Labs Result Diagrams: 05/12/17 05:20 05/12/17 05:20 Labs: Laboratory Results - last 24 hr 05/08/17 05/08/17 05/08/17 13:35 13:35 13:35 WBC 8.3 D RBC 3.56 Hgb 11.6 L Hct 35.0 L MCV 98.3 MCH 32.6 MCHC 33.1 RDW 15.1 H Plt Count 122 MPV 12.1 H Gran % 85.7 H Lymph % (Auto) 10.6 L Reeves % (Auto) 3.5 Eos % (Auto) 0.1 L Baso % (Auto) 0.1 Gran # 7.14 H Lymph # 0.9 L Reeves # 0.3 Eos # 0.0 Baso # 0.01 PT INR Sodium 141 Potassium 4.8 Chloride 106 Carbon Dioxide 27 Anion Gap 13 BUN 69 H Creatinine 1.0 Est GFR ( Amer) > 60 Est GFR (Non-Af Amer) > 60 POC Glucose (mg/dL) Random Glucose 134 H Lactic Acid Calcium 8.9 Phosphorus Magnesium Total Bilirubin 0.8 AST 29 ALT 32 Alkaline Phosphatase 42 Troponin I Total Protein 5.9 Albumin 3.4 Globulin 2.5 Albumin/Globulin Ratio 1.4 Triglycerides Cholesterol LDL Cholesterol Direct HDL Cholesterol TSH 3rd Generation Digoxin Blood Type AB NEGATIVE Blood Type Confirm Antibody Screen Negative Crossmatch See Detail BBK History Checked No verified bt 05/08/17 05/08/17 05/08/17 14:25 16:07 17:00 WBC RBC Hgb Hct MCV MCH MCHC RDW Plt Count MPV Gran % Lymph % (Auto) Reeves % (Auto) Eos % (Auto) Baso % (Auto) Gran # Lymph # Reeves # Eos # Baso # PT INR Sodium Potassium Chloride Carbon Dioxide Anion Gap BUN Creatinine Est GFR ( Amer) Est GFR (Non-Af Amer) POC Glucose (mg/dL) 168 H Random Glucose Lactic Acid Calcium Phosphorus Magnesium Total Bilirubin AST ALT Alkaline Phosphatase Troponin I Total Protein Albumin Globulin Albumin/Globulin Ratio Triglycerides Cholesterol LDL Cholesterol Direct HDL Cholesterol TSH 3rd Generation Digoxin 0.7 L Blood Type Blood Type Confirm AB NEGATIVE Antibody Screen Crossmatch BBK History Checked 05/08/17 05/08/17 05/08/17 17:00 17:00 17:00 WBC 7.6 RBC 3.27 L Hgb 10.5 L Hct 32.1 L MCV 98.2 MCH 32.1 MCHC 32.7 RDW 15.1 H Plt Count 114 L MPV 11.4 H Gran % Lymph % (Auto) Reeves % (Auto) Eos % (Auto) Baso % (Auto) Gran # Lymph # Reeves # Eos # Baso # PT 30.0 H INR 2.78 H Sodium 140 Potassium 4.4 Chloride 107 Carbon Dioxide 24 Anion Gap 13 BUN 73 H Creatinine 1.1 Est GFR ( Amer) > 60 Est GFR (Non-Af Amer) > 60 POC Glucose (mg/dL) Random Glucose 153 H Lactic Acid Calcium 8.4 Phosphorus Magnesium Total Bilirubin 0.9 AST 28 ALT 31 Alkaline Phosphatase 41 Troponin I 0.03 Total Protein 5.4 L Albumin 2.9 L Globulin 2.4 Albumin/Globulin Ratio 1.2 Triglycerides Cholesterol LDL Cholesterol Direct HDL Cholesterol TSH 3rd Generation Digoxin Blood Type Blood Type Confirm Antibody Screen Crossmatch BBK History Checked 05/08/17 05/09/17 05/09/17 19:15 05:30 05:30 WBC 5.3 D RBC 2.47 L Hgb 7.8 L D Hct 24.0 L MCV 97.2 MCH 31.6 MCHC 32.5 RDW 15.3 H Plt Count 80 L MPV 11.8 H Gran % 74.8 H Lymph % (Auto) 16.2 L Reeves % (Auto) 8.8 H Eos % (Auto) 0.0 L Baso % (Auto) 0.2 Gran # 3.93 Lymph # 0.9 L Reeves # 0.5 Eos # 0.0 Baso # 0.01 PT INR Sodium 142 Potassium 3.9 Chloride 108 H Carbon Dioxide 27 Anion Gap 11 BUN 74 H Creatinine 1.1 Est GFR ( Amer) > 60 Est GFR (Non-Af Amer) > 60 POC Glucose (mg/dL) Random Glucose 110 Lactic Acid 1.7 Calcium 8.6 Phosphorus 2.9 Magnesium 1.7 Total Bilirubin 1.6 H AST 28 ALT 29 Alkaline Phosphatase 41 Troponin I Total Protein 5.4 L Albumin 3.0 Globulin 2.4 Albumin/Globulin Ratio 1.3 Triglycerides 132 Cholesterol 114 L LDL Cholesterol Direct 42 HDL Cholesterol 50 TSH 3rd Generation Digoxin Blood Type Blood Type Confirm Antibody Screen Crossmatch BBK History Checked 05/09/17 05/09/17 05/09/17 05:30 05:30 07:30 WBC 5.7 RBC 2.57 L Hgb 8.2 L Hct 24.9 L MCV 96.9 MCH 31.9 MCHC 32.9 RDW 15.3 H Plt Count 78 L MPV 11.2 H Gran % Lymph % (Auto) Reeves % (Auto) Eos % (Auto) Baso % (Auto) Gran # Lymph # Reeves # Eos # Baso # PT 13.2 H INR 1.22 H Sodium Potassium Chloride Carbon Dioxide Anion Gap BUN Creatinine Est GFR ( Amer) Est GFR (Non-Af Amer) POC Glucose (mg/dL) Random Glucose Lactic Acid Calcium Phosphorus Magnesium Total Bilirubin AST ALT Alkaline Phosphatase Troponin I Total Protein Albumin Globulin Albumin/Globulin Ratio Triglycerides Cholesterol LDL Cholesterol Direct HDL Cholesterol TSH 3rd Generation 1.42 Digoxin Blood Type Blood Type Confirm Antibody Screen Crossmatch BBK History Checked Assessment & Plan - Assessment and Plan (Free Text) Assessment: nose bleed plane continue packing for now till thursday monitor for bleed coagulopathy ffp,hematology consult afib monitor tele ,iv cardiazem , cardiolog consult vo,guiac positive stoolmiting blood, gi eval. cbc in am, npo, iv fluid morbid obese sleep apnea precausion Decision To Admit - . Bed Request Type: Telemetry (uncontrooled a fib,nose bleed , coagulopathy) Admitting Physician: Holger Holland
[2017-05-10 06:21] LABS: BASO # 0.01 K/mm3 (0.0-2.0); BASO % 0.2 % (0.0-3.0); EOS % 0.4 % (1.5-5.0); GRAN # 4.11 (1.4-6.5); GRAN % 76.1 % (50.0-68.0); LYMPH # 0.8 (1.2-3.4); LYMPH % 14.4 % (22.0-35.0); MEAN CELL VOLUME 99.5 fL (80.0-105.0); MEAN CORPUSCULAR HEMOGLOBIN 32.1 pg (25.0-35.0); MEAN CORPUSCULAR HGB CONC 32.3 g/dl (31.0-37.0); MEAN PLATELET VOLUME 11.8 fl (7.0-11.0); MONO # 0.5 (0.1-0.6); MONO % 8.9 % (1.0-6.0); PLATELET COUNT 77 10^3/uL (120.0-450.0); RBC 2.18 10^6/uL (3.5-6.1); RED CELL DISTRIBUTION WIDTH 15.4 % (11.5-14.5); WHITE BLOOD COUNT 5.4 10^3/ul (4.5-11.0)
[2017-05-10 06:38] LABS: INR 1.1 (0.93-1.08); PROTHROMBIN TIME 11.9 Seconds (9.9-11.8)
[2017-05-10 06:40] LABS: ALB/GLOB RATIO 1.2 (1.1-1.8); ALBUMIN 2.8 g/dL (3.0-4.8); ALT/SGPT 26 U/L (7-56); AST/SGOT 23 U/L (15-59); BLOOD UREA NITROGEN 37 mg/dL (7-21); CALCIUM 8.3 mg/dL (8.4-10.5); GFR AFRICAN-AMERICAN > 60; GFR NON-AFRICAN AMERICAN > 60
[2017-05-10 08:45] LABS: PLATELET COUNT MANUAL 80 K/mm3 (120-450)
[2017-05-10] MEDS: cefTRIAXone 1 gm 1 GM/100 ML BAG IVPB SCH (09:13)
[2017-05-10] MEDS: Sodium Chloride 0.9% 1,000 ML IV SCH (11:12)
--- NOTE | 2017-05-10 11:22 | CP.CCUPN ---
CCU Subjective - Physician Review Events Since Last Encounter (Free Text): 05/10/17 11:18 no acute events. Received ambien overnight and was a bit confused earlier No overt bleeding but some old crusting. CCU Objective - Vital Signs / Intake & Output Vital Signs (Last 4 hours): Vital Signs Temp Pulse Resp BP Pulse Ox 05/10/17 11:05 97.6 F 78 25 H 135/64 05/10/17 10:00 87 40 H 145/68 98 05/10/17 09:30 91 H 51 H 98 05/10/17 09:12 136/97 H 05/10/17 09:11 92 H 136/97 H 05/10/17 09:00 93 H 30 H 136/97 H 75 L 05/10/17 08:30 81 24 94 L 05/10/17 08:00 80 22 112/72 93 L 05/10/17 07:48 85 05/10/17 07:30 90 24 98 Intake and Output (Last 8hrs): Intake & Output 05/09/17 05/10/17 05/10/17 22:59 06:59 14:59 Intake Total 790 0 Output Total 1700 280 Balance -910 -280 Intake: IV 550 Nsaline 550 Oral 240 Blood Product 0 Red Blood Cells Cp2d As3 0 Lr Unit [id number] Output: Urine 1700 280 Urine, Voided 1700 280 Other: Voiding Method Urinal Urinal # Bowel Movements 0 - Physical Exam Head: Positive for: Atraumatic, Normocephalic Pupils: Positive for: PERRL Extroacular Muscles: Positive for: EOMI Conjunctiva: Positive for: Normal Mouth: Positive for: Moist Mucous Membranes Pharnyx: Positive for: Other (no post nasal drip). Negative for: ERYTHEMA, EXUDATE Nose (External): Positive for: Other (nasal packing with blood crusting) Nose (Internal): Positive for: Other (bilateral packing in place). Negative for : No Active Bleeding Neck: Positive for: Normal Range of Motion Respiratory/Chest: Positive for: Clear to Auscultation, Good Air Exchange. Negative for: Respiratory Distress, Accessory Muscle Use Cardiovascular: Positive for: Regular Rate and Rhythm, Normal S1, S2, Irregular Rhythm. Negative for: Murmurs Abdomen: Positive for: Normal Bowel Sounds. Negative for: Tenderness, Distention, Peritoneal Signs Back: Positive for: Normal Inspection Upper Extremity: Positive for: Normal Inspection. Negative for: Cyanosis, Edema Lower Extremity: Positive for: Normal Inspection Neurological: Positive for: GCS=15, CN II-XII Intact, Speech Normal Skin: Positive for: Warm, Dry, Normal Color. Negative for: Rashes Psychiatric: Positive for: Alert, Oriented x 3, Normal Insight, Normal Concentration - Medications Active Medications: Active Medications Generic Name Dose Route Start Last Admin Trade Name Freq PRN Reason Stop Dose Admin Acetaminophen 650 mg 05/08/17 18:05 Tylenol 650mg/20.3ml Solution Ud PO Q6H PRN Pain, moderate (4-7) Allopurinol 300 mg 05/09/17 10:00 05/10/17 09:13 Zyloprim PO 300 mg DAILY EMI Administration Atorvastatin Calcium 20 mg 05/09/17 10:00 05/10/17 09:12 Lipitor PO 20 mg DAILY EMI Administration Digoxin 0.125 mg 05/09/17 14:00 05/09/17 20:12 Lanoxin PO 0.125 mg 1400 EMI Administration Diltiazem HCl 30 mg 05/09/17 18:00 05/10/17 09:11 Cardizem PO 30 mg TID EMI Administration Furosemide 40 mg 05/09/17 10:00 05/10/17 09:12 Lasix PO 40 mg DAILY EMI Administration Sodium Chloride 1,000 mls @ 100 mls/hr 05/08/17 17:00 05/10/17 11:12 Sodium Chloride 0.9% IV 100 mls/hr .Q10H EMI Administration Ceftriaxone Sodium 1 gm in 100 mls @ 100 mls/hr 05/09/17 10:00 05/10/17 09:13 Rocephin 1 Gram Ivpb IVPB 100 mls/hr DAILY EMI Administration Protocol Lamotrigine 25 mg 05/09/17 10:00 05/10/17 09:11 Lamictal PO 25 mg DAILY EMI Administration Protocol Ondansetron HCl 4 mg 05/09/17 09:31 Zofran Inj IVP Q4 PRN Nausea/Vomiting Pantoprazole Sodium 40 mg 05/09/17 10:00 05/10/17 09:13 Protonix Inj IVP 40 mg DAILY EMI Administration Zolpidem Tartrate 5 mg 05/09/17 17:47 05/09/17 21:30 Ambien PO 5 mg HS PRN Administration Insomnia Protocol - Patient Studies Lab Studies: Lab Studies 05/10/17 05/10/17 05/10/17 Range/Units 05:30 05:30 05:30 WBC 5.4 (4.5-11.0) 10^3/ul RBC 2.18 L (3.5-6.1) 10^6/uL Hgb 7.0 L (14.0-18.0) gm/dL Hct 21.7 L (42.0-52.0) % MCV 99.5 (80.0-105.0) fL MCH 32.1 (25.0-35.0) pg MCHC 32.3 (31.0-37.0) g/dl RDW 15.4 H (11.5-14.5) % Plt Count 77 L (120.0-450.0) 10^3/uL Manual Plt Count 80 L (120-450) K/mm3 MPV 11.8 H (7.0-11.0) fl Gran % 76.1 H (50.0-68.0) % Lymph % (Auto) 14.4 L (22.0-35.0) % Wythe % (Auto) 8.9 H (1.0-6.0) % Eos % (Auto) 0.4 L (1.5-5.0) % Baso % (Auto) 0.2 (0.0-3.0) % Gran # 4.11 (1.4-6.5) Lymph # 0.8 L (1.2-3.4) Wythe # 0.5 (0.1-0.6) Eos # 0.0 (0.0-0.7) Baso # 0.01 (0.0-2.0) K/mm3 PT 11.9 H (9.9-11.8) Seconds INR 1.10 H (0.93-1.08) Sodium 141 (132-148) mmol/L Potassium 3.9 (3.6-5.0) mmol/L Chloride 106 (98-107) mmol/L Carbon Dioxide 30 (21-33) mmol/L Anion Gap 9 L (10-20) BUN 37 H (7-21) mg/dL Creatinine 1.0 (0.5-1.4) mg/dL Est GFR ( Amer) > 60 Est GFR (Non-Af Amer) > 60 Random Glucose 103 (70-110) mg/dL Hemoglobin A1c (4.2-6.5) % Calcium 8.3 L (8.4-10.5) mg/dL Total Bilirubin 1.1 (0.2-1.3) mg/dL AST 23 (15-59) U/L ALT 26 (7-56) U/L Alkaline Phosphatase 39 (38-133) U/L Total Protein 5.1 L (5.8-8.3) g/dL Albumin 2.8 L (3.0-4.8) g/dL Globulin 2.3 gm/dL Albumin/Globulin Ratio 1.2 (1.1-1.8) Blood Type Antibody Screen Crossmatch BBK History Checked 05/09/17 05/08/17 Range/Units 05:30 13:35 WBC (4.5-11.0) 10^3/ul RBC (3.5-6.1) 10^6/uL Hgb (14.0-18.0) gm/dL Hct (42.0-52.0) % MCV (80.0-105.0) fL MCH (25.0-35.0) pg MCHC (31.0-37.0) g/dl RDW (11.5-14.5) % Plt Count (120.0-450.0) 10^3/uL Manual Plt Count (120-450) K/mm3 MPV (7.0-11.0) fl Gran % (50.0-68.0) % Lymph % (Auto) (22.0-35.0) % Wythe % (Auto) (1.0-6.0) % Eos % (Auto) (1.5-5.0) % Baso % (Auto) (0.0-3.0) % Gran # (1.4-6.5) Lymph # (1.2-3.4) Wythe # (0.1-0.6) Eos # (0.0-0.7) Baso # (0.0-2.0) K/mm3 PT (9.9-11.8) Seconds INR (0.93-1.08) Sodium (132-148) mmol/L Potassium (3.6-5.0) mmol/L Chloride (98-107) mmol/L Carbon Dioxide (21-33) mmol/L Anion Gap (10-20) BUN (7-21) mg/dL Creatinine (0.5-1.4) mg/dL Est GFR ( Amer) Est GFR (Non-Af Amer) Random Glucose (70-110) mg/dL Hemoglobin A1c 5.6 (4.2-6.5) % Calcium (8.4-10.5) mg/dL Total Bilirubin (0.2-1.3) mg/dL AST (15-59) U/L ALT (7-56) U/L Alkaline Phosphatase (38-133) U/L Total Protein (5.8-8.3) g/dL Albumin (3.0-4.8) g/dL Globulin gm/dL Albumin/Globulin Ratio (1.1-1.8) Blood Type AB NEGATIVE Antibody Screen Negative Crossmatch See Detail BBK History Checked No verified bt Laboratory Results - last 24 hr 05/08/17 05/09/17 05/10/17 13:35 05:30 05:30 WBC 5.4 RBC 2.18 L Hgb 7.0 L Hct 21.7 L MCV 99.5 MCH 32.1 MCHC 32.3 RDW 15.4 H Plt Count 77 L Manual Plt Count 80 L MPV 11.8 H Gran % 76.1 H Lymph % (Auto) 14.4 L [place] % (Auto) 8.9 H Eos % (Auto) 0.4 L Baso % (Auto) 0.2 Gran # 4.11 Lymph # 0.8 L Wy[place] # 0.5 Eos # 0.0 Baso # 0.01 PT INR Sodium Potassium Chloride Carbon Dioxide Anion Gap BUN Creatinine Est GFR ( Amer) Est GFR (Non-Af Amer) Random Glucose Hemoglobin A1c 5.6 Calcium Total Bilirubin AST ALT Alkaline Phosphatase Total Protein Albumin Globulin Albumin/Globulin Ratio Blood Type AB NEGATIVE Antibody Screen Negative Crossmatch See Detail BBK History Checked No verified bt 05/10/17 05/10/17 05:30 05:30 WBC RBC Hgb Hct MCV MCH MCHC RDW Plt Count Manual Plt Count MPV Gran % Lymph % (Auto) Wy[place] % (Auto) Eos % (Auto) Baso % (Auto) Gran # Lymph # Wy[place] # Eos # Baso # PT 11.9 H INR 1.10 H Sodium 141 Potassium 3.9 Chloride 106 Carbon Dioxide 30 Anion Gap 9 L BUN 37 H Creatinine 1.0 Est GFR ( Amer) > 60 Est GFR (Non-Af Amer) > 60 Random Glucose 103 Hemoglobin A1c Calcium 8.3 L Total Bilirubin 1.1 AST 23 ALT 26 Alkaline Phosphatase 39 Total Protein 5.1 L Albumin 2.8 L Globulin 2.3 Albumin/Globulin Ratio 1.2 Blood Type Antibody Screen Crossmatch BBK History Checked Review of Systems - EENT Eyes: UNREMARKABLE Ears: UNREMARKABLE Nose/Mouth/Throat: UNREMARKABLE - Cardiovascular Cardiovascular: UNREMARKABLE - Respiratory Respiratory: UNREMARKABLE - Gastrointestinal Gastrointestinal: UNREMARKABLE - Genitourinary Genitourinary: UNREMARKABLE - Reproductive: Male Reproductive:Male: UNREMARKABLE - Musculoskeletal Musculoskeletal: UNREMARKABLE Critical Care Progress Note - Nutrition Nutrition: Nutrition Category Date Time Status Liquid Diet [DIET] Diets 05/09/17 Lunch Ordered Assessment/Plan - Assessment and Plan (Free Text) Assessment: 71 y/o M w/ Upper resp nasal bleeding S/P L nasal packing by ENT. Overnight mild drop in HGB. Keep HGB> 7. Transfuse 1 unit PRBC , family agreed. Keep Platelets > 20K and INR<2.0 . Anticoagulation placed on hold A fib , rate controlled on P.O cardizem. Drip off for > 12 hrs. ENT plan to remove packing on thursday morning. Out of bed to chair as tolerated. DVT P SCD PPI cc time 45 min
--- NOTE | 2017-05-10 12:20 | CP.PCM.PN ---
Subjective - Date & Time of Evaluation Date of Evaluation: 05/10/17 Time of Evaluation: 12:14 - Subjective Subjective: minimal blood from Lt. nasal packing A Fib on monitor No SOB or C/P Abdomen and pelvic CT scan no acute fingings Maxillofacial CT scan Blood in Maxillary sinus no Maxillary or orbital Fx Echo normal EF Objective - Vital Signs/Intake and Output Vital Signs (last 24 hours): Temp Pulse Resp BP Pulse Ox 97.4 F L 85 20 120/56 L 100 05/10/17 12:05/10/17 12:05/10/17 12:05/10/17 12:05/10/17 12:00 Intake and Output: 05/10/17 05/10/17 06:59 18:59 Intake Total 790 0 Output Total 1700 640 Balance -910 -640 - Medications Medications: Current Medications Acetaminophen (Tylenol 650mg/20.3ml Solution Ud) 650 mg PO Q6H PRN PRN Reason: Pain, moderate (4-7) Allopurinol (Zyloprim) 300 mg PO DAILY [facility] Last Admin: 05/10/17 09:13 Dose: 300 mg Atorvastatin Calcium (Lipitor) 20 mg PO DAILY [facility] Last Admin: 05/10/17 09:12 Dose: 20 mg Digoxin (Lanoxin) 0.125 mg PO 1400 [facility] Last Admin: 05/09/17 20:12 Dose: 0.125 mg Diltiazem HCl (Cardizem) 30 mg PO TID [facility] Last Admin: 05/10/17 09:11 Dose: 30 mg Furosemide (Lasix) 40 mg PO DAILY [facility] Last Admin: 05/10/17 09:12 Dose: 40 mg Sodium Chloride (Sodium Chloride 0.9%) 1,000 mls @ 100 mls/hr IV .Q10H [facility] Last Admin: 05/10/17 11:12 Dose: 100 mls/hr Ceftriaxone Sodium (Rocephin 1 Gram Ivpb) 1 gm in 100 mls @ 100 mls/hr IVPB DAILY EMI PRN Reason: Protocol Last Admin: 05/10/17 09:13 Dose: 100 mls/hr Lamotrigine (Lamictal) 25 mg PO DAILY [facility] PRN Reason: Protocol Last Admin: 05/10/17 09:11 Dose: 25 mg Ondansetron HCl (Zofran Inj) 4 mg IVP Q4 PRN PRN Reason: Nausea/Vomiting Pantoprazole Sodium (Protonix Inj) 40 mg IVP DAILY [facility] Last Admin: 05/10/17 09:13 Dose: 40 mg Zolpidem Tartrate (Ambien) 5 mg PO HS PRN; Protocol PRN Reason: Insomnia Last Admin: 05/09/17 21:30 Dose: 5 mg - Labs Labs: 05/10/17 05:30 05/10/17 05:30 PT 11.9 Seconds (9.9-11.8) H 05/10/17 05:30 INR 1.10 (0.93-1.08) H 05/10/17 05:30 APTT 39.5 Seconds (23.7-30.8) H 05/08/17 08:15 - Head Exam Additional comments: Ecchymosis - Neck Exam Neck Exam: Normal Inspection - Cardiovascular Exam Cardiovascular Exam: Irregular Rhythm - GI/Abdominal Exam GI & Abdominal Exam: Soft - Extremities Exam Extremities Exam: Normal Inspection Assessment and Plan - Assessment and Plan (Free Text) Assessment: A Fib S/P fall Epistaxis Anemia Plan: Cont Acetaminophen (Tylenol 650mg/20.3ml Solution Ud) 650 mg PO Q6H PRN PRN Reason: Pain, moderate (4-7) Allopurinol (Zyloprim) 300 mg PO DAILY [facility] Last Admin: 05/10/17 09:13 Dose: 300 mg Atorvastatin Calcium (Lipitor) 20 mg PO DAILY [facility] Last Admin: 05/10/17 09:12 Dose: 20 mg Digoxin (Lanoxin) 0.125 mg PO 1400 [facility] Last Admin: 05/09/17 20:12 Dose: 0.125 mg Diltiazem HCl (Cardizem) 30 mg PO TID [facility] Last Admin: 05/10/17 09:11 Dose: 30 mg Furosemide (Lasix) 40 mg PO DAILY [facility] Last Admin: 05/10/17 09:12 Dose: 40 mg Sodium Chloride (Sodium Chloride 0.9%) 1,000 mls @ 100 mls/hr IV .Q10H [facility] Last Admin: 05/10/17 11:12 Dose: 100 mls/hr Ceftriaxone Sodium (Rocephin 1 Gram Ivpb) 1 gm in 100 mls @ 100 mls/hr IVPB DAILY EMI PRN Reason: Protocol Last Admin: 07/09/17 09:13 Dose: 100 mls/hr Lamotrigine (Lamictal) 25 mg PO DAILY EMI PRN Reason: Protocol Last Admin: 05/10/17 09:11 Dose: 25 mg Ondansetron HCl (Zofran Inj) 4 mg IVP Q4 PRN PRN Reason: Nausea/Vomiting Pantoprazole Sodium (Protonix Inj) 40 mg IVP DAILY EMI Last Admin: 05/10/17 09:13 Dose: 40 mg Zolpidem Tartrate (Ambien) 5 mg PO HS PRN; Protocol PRN Reason: Insomnia Last Admin: 05/09/17 21:30 Dose: 5 mg Will receive one Unite of PRBCs
[2017-05-10] MEDS: Digoxin 125 mcg (0.125 mg) Tab PO SCH (14:06)
--- NOTE | 2017-05-10 18:53 | CP.PCM.PN ---
Subjective - Date & Time of Evaluation Date of Evaluation: 05/10/17 Time of Evaluation: 16:00 - Subjective Subjective: Pt sitting up in bed, with packing only to Justina melendez reporting that he is hungry, with bleeding now under control, at bedside along with suitcases as they were returing home from a cruise when epistaxis began. Dr Holland reports that on further testing there was no orbital fx , as suspected on CT exam Objective - Vital Signs/Intake and Output Vital Signs (last 24 hours): Temp Pulse Resp BP Pulse Ox 98.4 F 83 25 H 136/66 96 05/10/17 16:22 05/10/17 18:00 05/10/17 18:00 05/10/17 18:00 05/10/17 18:00 Intake and Output: 05/10/17 05/10/17 06:59 18:59 Intake Total 790 2385 Output Total 1700 2260 Balance -910 125 - Medications Medications: Current Medications Acetaminophen (Tylenol 650mg/20.3ml Solution Ud) 650 mg PO Q6H PRN PRN Reason: Pain, moderate (4-7) Allopurinol (Zyloprim) 300 mg PO DAILY [facility] Last Admin: 05/10/17 09:13 Dose: 300 mg Atorvastatin Calcium (Lipitor) 20 mg PO DAILY [facility] Last Admin: 05/10/17 09:12 Dose: 20 mg Digoxin (Lanoxin) 0.125 mg PO 1400 [facility] Last Admin: 05/10/17 14:06 Dose: 0.125 mg Diltiazem HCl (Cardizem) 30 mg PO TID [facility] Last Admin: 05/10/17 17:53 Dose: 30 mg Furosemide (Lasix) 40 mg PO DAILY [facility] Last Admin: 05/10/17 09:12 Dose: 40 mg Sodium Chloride (Sodium Chloride 0.9%) 1,000 mls @ 100 mls/hr IV .Q10H [facility] Last Admin: 05/10/17 11:12 Dose: 100 mls/hr Ceftriaxone Sodium (Rocephin 1 Gram Ivpb) 1 gm in 100 mls @ 100 mls/hr IVPB DAILY [facility] PRN Reason: Protocol Last Admin: 05/10/17 09:13 Dose: 100 mls/hr Lamotrigine (Lamictal) 25 mg PO DAILY [facility] PRN Reason: Protocol Last Admin: 05/10/17 09:11 Dose: 25 mg Ondansetron HCl (Zofran Inj) 4 mg IVP Q4 PRN PRN Reason: Nausea/Vomiting Pantoprazole Sodium (Protonix Inj) 40 mg IVP DAILY [facility] Last Admin: 05/10/17 09:13 Dose: 40 mg Zolpidem Tartrate (Ambien) 5 mg PO HS PRN; Protocol PRN Reason: Insomnia Last Admin: 05/09/17 21:30 Dose: 5 mg - Labs Labs: 05/10/17 05:30 05/10/17 05:30 PT 11.9 Seconds (9.9-11.8) H 05/10/17 05:30 INR 1.10 (0.93-1.08) H 05/10/17 05:30 APTT 39.5 Seconds (23.7-30.8) H 05/08/17 08:15 - Constitutional Appears: No Acute Distress - Head Exam Head Exam: NORMAL INSPECTION - Eye Exam Eye Exam: EOMI, PERRL - ENT Exam ENT Exam: Mucous Membranes Dry Additional comments: packing to L nares w dried blood noted - Neck Exam Neck Exam: Normal Inspection - Respiratory Exam Respiratory Exam: NORMAL BREATHING PATTERN - GI/Abdominal Exam GI & Abdominal Exam: Soft - Extremities Exam Extremities Exam: Full ROM - Neurological Exam Neurological Exam: Alert, Awake, Oriented x3 Additional comments: occ tremor at rest of hands - Skin Skin Exam: Normal Color, Warm Assessment and Plan (1) Epistaxis Status: Acute (2) Afib Status: Acute (3) Fall Status: Acute (4) Anemia Status: Acute (5) Anticoagulant long-term use Status: Acute (6) Dehydration Status: Resolved (7) Thrombocytopenia Status: Acute - Assessment and Plan (Free Text) Plan: Recommend to continue present plan w 2 units of PRBCs to be txfused today for the pt's severe anemia, as he is a cardiac pt with chronic Afib, who refused supplemental O2 as his nose was packed, as the 1 unit ordered as per Dr Urbina yesterday was not given. After conversation w Dr Holland, we will advance pt's diet, OOB to chair, ORAL hygiene to be GIVEN, along with a commode and antiembolism stockings..ALL WITH ASSIST. Further eval as per DR Ciro GI for pts severe drop in Hgb after his dehydration corrected, with restart of anticoagulation when indicated. Prognosis is guarded
[2017-05-10 20:13] LABS: BASO # 0.01 K/mm3 (0.0-2.0); BASO % 0.2 % (0.0-3.0); GRAN # 5.41 (1.4-6.5); GRAN % 90.2 % (50.0-68.0); HEMOGLOBIN 8.9 gm/dL (14.0-18.0); LYMPH # 0.4 (1.2-3.4); LYMPH % 6.8 % (22.0-35.0); MEAN CELL VOLUME 97.1 fL (80.0-105.0); MEAN CORPUSCULAR HEMOGLOBIN 32.4 pg (25.0-35.0); MEAN CORPUSCULAR HGB CONC 33.3 g/dl (31.0-37.0); MEAN PLATELET VOLUME 11.1 fl (7.0-11.0); MONO # 0.2 (0.1-0.6); MONO % 2.8 % (1.0-6.0); PLATELET COUNT 79 10^3/uL (120.0-450.0); RBC 2.75 10^6/uL (3.5-6.1); RED CELL DISTRIBUTION WIDTH 16.1 % (11.5-14.5)
--- NOTE | 2017-05-10 23:49 | CARD ---
APPROVED REPORT EXAM: Two-dimensional and M-mode echocardiogram with Doppler and color Doppler. INDICATION 2D DIMENSIONS IVSd1.2 (0.7-1.1cm)LVDd4.1 (3.9-5.9cm) PWd1.2 (0.7-1.1cm)LVDs2.5 (2.5-4.0cm) FS (%) 37.8 %LVEF (%)68.4 (>50%) M-Mode DIMENSIONS Left Atrium (MM)5.00 (2.5-4.0cm)Aortic Root4.30 (2.2-3.7cm) Aortic Cusp Exc.2.60 (1.5-2.0cm) Aortic Valve AoV Peak Fwenueuv26.6cm/Sean Peak GR.3mmHg Mitral Valve MV E Drknbbgz35.9cm/s Tricuspid Valve TR Peak [id number]/sRAP [id number] Peak Gr.30mmHg [id number] LEFT VENTRICLE The left ventricle is normal size. There is mild concentric left ventricular hypertrophy. The left ventricular function is normal.EF-55-60% There is normal LV segmental wall motion. A fib No left ventricle thrombus noted on this study. There is no ventricular septal defect visualized. There is no left ventricular aneurysm. There is no mass noted in the left ventricle. RIGHT VENTRICLE The right ventricle is normal size. There is normal right ventricular wall thickness. The right ventricular systolic function is normal. ATRIA The left atrium is moderately dilated. The right atrium size is normal. The interatrial septum is intact with no evidence for an atrial septal defect. AORTIC VALVE The aortic valve is thickened but opens well. No aortic regurgitation is present. There is no aortic valvular stenosis. There is no aortic valvular vegetation. MITRAL VALVE The mitral valve is thickened but opens well. Mitral regurgitation is trace. There is no mitral valve stenosis. There is no evidence of mitral valve prolapse. TRICUSPID VALVE The tricuspid valve leaflets are thickened , but open well. There is trace to mild tricuspid regurgitation.RVSP-40 mm of Hg. There is no tricuspid valve stenosis. There is no tricuspid valve prolapse or vegetation. PULMONIC VALVE The pulmonic valve is not well visualized. GREAT VESSELS The aortic root is mildly enlarged. The ascending aorta is normal in size. The pulmonary artery is normal. The IVC is normal in size and collapses >50% with inspiration. PERICARDIAL EFFUSION There is no pleural effusion. There is no pericardial effusion. <Conclusion> The left ventricle is normal size. There is mild concentric left ventricular hypertrophy. The left ventricular function is normal.EF-55-60% Mitral regurgitation is trace. There is trace to mild tricuspid regurgitation.RVSP-40 mm of Hg. The aortic root is mildly enlarged. no thrombus or vegetation noted.
[2017-05-11 05:48] LABS: BASO # 0.01 K/mm3 (0.0-2.0); BASO % 0.2 % (0.0-3.0); EOS % 0.2 % (1.5-5.0); GRAN # 3.99 (1.4-6.5); GRAN % 75.1 % (50.0-68.0); HEMOGLOBIN 8.4 gm/dL (14.0-18.0); LYMPH # 0.9 (1.2-3.4); LYMPH % 16.4 % (22.0-35.0); MEAN CELL VOLUME 97.3 fL (80.0-105.0); MEAN CORPUSCULAR HEMOGLOBIN 32.2 pg (25.0-35.0); MEAN CORPUSCULAR HGB CONC 33.1 g/dl (31.0-37.0); MEAN PLATELET VOLUME 11.6 fl (7.0-11.0); MONO # 0.4 (0.1-0.6); MONO % 8.1 % (1.0-6.0); PLATELET COUNT 80 10^3/uL (120.0-450.0); RBC 2.61 10^6/uL (3.5-6.1); RED CELL DISTRIBUTION WIDTH 16.1 % (11.5-14.5); WHITE BLOOD COUNT 5.3 10^3/ul (4.5-11.0)
[2017-05-11 05:57] LABS: INR 1.04 (0.93-1.08); PARTIAL THROMBOPLASTIN TIME 26.4 Seconds (23.7-30.8); PROTHROMBIN TIME 11.2 Seconds (9.9-11.8)
[2017-05-11 06:02] LABS: ALB/GLOB RATIO 1.3 (1.1-1.8); ALT/SGPT 24 U/L (7-56); AST/SGOT 21 U/L (15-59); BLOOD UREA NITROGEN 23 mg/dL (7-21); CALCIUM 8.6 mg/dL (8.4-10.5); GFR AFRICAN-AMERICAN > 60; GFR NON-AFRICAN AMERICAN > 60
--- NOTE | 2017-05-11 07:56 | CP.PCM.PN ---
<COURTNEY LOPEZ - Last Filed: 05/11/17 10:57> Subjective - Date & Time of Evaluation Date of Evaluation: 05/11/17 Time of Evaluation: 07:53 - Subjective Subjective: PGY1 ICU Progress Note: Pt seen and examined at bedside. Pt received 2 units pRBCs yesterday, with improved H/H. No acute events overnight. Pt c/o minimal bleeding from L nare and minimal pain at the site. He also c/o a mild dry cough today. Denies fever, chills, headache, dizziness, weakness, sob, cp, palpitations, abdominal pain. Objective - Vital Signs/Intake and Output Vital Signs (last 24 hours): Temp Pulse Resp BP Pulse Ox 98.3 F 76 23 155/93 H 97 05/11/17 04:00 05/11/17 07:00 05/11/17 07:00 05/11/17 07:00 05/11/17 07:00 Intake and Output: 05/11/17 05/11/17 06:59 18:59 Output Total 1000 Balance -1000 - Medications Medications: Current Medications Acetaminophen (Tylenol 650mg/20.3ml Solution Ud) 650 mg PO Q6H PRN PRN Reason: Pain, moderate (4-7) Allopurinol (Zyloprim) 300 mg PO DAILY [facility] Last Admin: 05/10/17 09:13 Dose: 300 mg Atorvastatin Calcium (Lipitor) 20 mg PO DAILY [facility] Last Admin: 05/10/17 09:12 Dose: 20 mg Digoxin (Lanoxin) 0.125 mg PO 1400 [facility] Last Admin: 05/10/17 14:06 Dose: 0.125 mg Diltiazem HCl (Cardizem) 30 mg PO TID [facility] Last Admin: 05/10/17 17:53 Dose: 30 mg Furosemide (Lasix) 40 mg PO DAILY [facility] Last Admin: 05/10/17 09:12 Dose: 40 mg Sodium Chloride (Sodium Chloride 0.9%) 1,000 mls @ 100 mls/hr IV .Q10H [facility] Last Admin: 05/10/17 11:12 Dose: 100 mls/hr Ceftriaxone Sodium (Rocephin 1 Gram Ivpb) 1 gm in 100 mls @ 100 mls/hr IVPB DAILY [facility] PRN Reason: Protocol Last Admin: 05/10/17 09:13 Dose: 100 mls/hr Lamotrigine (Lamictal) 25 mg PO DAILY [facility] PRN Reason: Protocol Last Admin: 05/10/17 09:11 Dose: 25 mg Ondansetron HCl (Zofran Inj) 4 mg IVP Q4 PRN PRN Reason: Nausea/Vomiting Pantoprazole Sodium (Protonix Inj) 40 mg IVP DAILY [facility] Last Admin: 05/10/17 09:13 Dose: 40 mg Zolpidem Tartrate (Ambien) 5 mg PO HS PRN; Protocol PRN Reason: Insomnia Last Admin: 05/09/17 21:30 Dose: 5 mg - Labs Labs: 05/11/17 05:20 05/11/17 05:20 PT 11.2 Seconds (9.9-11.8) 05/11/17 05:20 INR 1.04 (0.93-1.08) 05/11/17 05:20 APTT 26.4 Seconds (23.7-30.8) 05/11/17 05:20 - Constitutional Appears: Well, No Acute Distress - Head Exam Head Exam: ATRAUMATIC, NORMOCEPHALIC - Eye Exam Eye Exam: PERRL - ENT Exam ENT Exam: Mucous Membranes Moist - Respiratory Exam Respiratory Exam: Wheezes - Cardiovascular Exam Cardiovascular Exam: RRR, +S1, +S2. absent: Gallop, Rubs, Murmur - GI/Abdominal Exam GI & Abdominal Exam: Soft, Normal Bowel Sounds. absent: Distended, Guarding, Tenderness - Neurological Exam Neurological Exam: Alert, Awake, Oriented x3 - Psychiatric Exam Psychiatric exam: Anxious - Skin Skin Exam: Dry, Intact, Warm Assessment and Plan - Assessment and Plan (Free Text) Assessment: 71M with PMH afib on Coumadin, HTN, nonischemic CMP, admitted for overt blood loss 2/2 epistaxis from supratherapeutic INR (2/2 Coumadin). Hospital course was complicated by a fall in ED, and pt in afib with RVR, initially on Cardizem drip, now on PO Cardizem per Cardio. Pt is s/p L nare nasal packing by ENT, 4 units FFPs, Vitamin K and 2 units rbcs transfusion, now stable H/H and INR 1.04 , hemodynamically stable, minimal nasal bleeding, ENT to remove nasal packing today. Pt to be transferred to tele. Plan: Neuro: AAOx3. No mental status changes. Hx of seizures. C/w home med Lamotrigine. Resp: Upper nasal bleed, now some old crusting. ENT placed nasal packing on admission, will possibly remove today. cont to monitor for bleeding. On RA. Saturating well. Maintain SpO2>90% Expiratory wheezes auscultated throughout on lung exam today. No hx of COPD/ smoking/lung disease. No sob, subjective complaints of resp distress. Start duoneb inh q6h prn wheezing. CV: rate well controlled, regular today. normotensive. Cont to monitor. Initially, afib with RVR on admission, s/p Cardizem drip, now on PO Cardizem. Heme: On admission, Hgb 12.1. Dropped to 10.5->8.2->7 yesterday. S/p 2 units prbcs. improving Hgb 8.4 today. Cont to monitor, Thrombocytopenia plts 70-80's. ID: afebrile, no leukocytosis. Cont to monitor. Nephro: Improving BUN/Cr. replace electrolytes and maintain euvolemia. Endo: Maintain euglycemia. GI: on Regular diet. Tolerating well. GI Ppx: Protonix DVT ppx: mechanical/scds. Hold AC, in terms of anemia/acute blood loss. Dispo: to be transferred to telemetry Case seen and discussed with PGY2 and attending, Dr. Franco. Courtney Lopez, PGY1 <Guzman Franco - Last Filed: 05/11/17 13:27> Objective - Vital Signs/Intake and Output Vital Signs (last 24 hours): Temp Pulse Resp BP Pulse Ox 97.8 F 82 20 140/83 98 05/11/17 12:00 05/11/17 12:00 05/11/17 12:00 05/11/17 12:00 05/11/17 12:00 Intake and Output: 05/11/17 05/11/17 06:59 18:59 Output Total 1000 Balance -1000 - Medications Medications: Current Medications Acetaminophen (Tylenol 650mg/20.3ml Solution Ud) 650 mg PO Q6H PRN PRN Reason: Pain, moderate (4-7) Albuterol/Ipratropium (Duoneb 3 Mg/0.5 Mg (3 Ml) Ud) 3 ml IH [id number] PRN PRN Reason: Wheezing Allopurinol (Zyloprim) 300 mg PO DAILY [facility] Last Admin: 05/11/17 11:12 Dose: 300 mg Atorvastatin Calcium (Lipitor) 20 mg PO DAILY [facility] Last Admin: 05/11/17 09:32 Dose: 20 mg Digoxin (Lanoxin) 0.125 mg PO 1400 [facility] Last Admin: 05/10/17 14:06 Dose: 0.125 mg Diltiazem HCl (Cardizem) 30 mg PO TID [facility] Stop: 05/11/17 23:59 Last Admin: 05/11/17 09:32 Dose: 30 mg Diltiazem HCl (Cardizem Cd) 120 mg PO DAILY [facility] Furosemide (Lasix) 40 mg PO DAILY [facility] Last Admin: 05/11/17 09:32 Dose: 40 mg Sodium Chloride (Sodium Chloride 0.9%) 1,000 mls @ 100 mls/hr IV .Q10H [facility] Last Admin: 05/10/17 11:12 Dose: 100 mls/hr Ceftriaxone Sodium (Rocephin 1 Gram Ivpb) 1 gm in 100 mls @ 100 mls/hr IVPB DAILY [facility] PRN Reason: Protocol Last Admin: 05/11/17 09:32 Dose: 100 mls/hr Lamotrigine (Lamictal) 25 mg PO DAILY [facility] PRN Reason: Protocol Last Admin: 05/11/17 11:12 Dose: 25 mg Ondansetron HCl (Zofran Inj) 4 mg IVP Q4 PRN PRN Reason: Nausea/Vomiting Pantoprazole Sodium (Protonix Inj) 40 mg IVP DAILY [facility] Last Admin: 05/11/17 09:31 Dose: 40 mg Zolpidem Tartrate (Ambien) 5 mg PO HS PRN; Protocol PRN Reason: Insomnia Last Admin: 05/09/17 21:30 Dose: 5 mg - Labs Labs: 05/11/17 05:20 05/11/17 05:20 PT 11.2 Seconds (9.9-11.8) 05/11/17 05:20 INR 1.04 (0.93-1.08) 05/11/17 05:20 APTT 26.4 Seconds (23.7-30.8) 05/11/17 05:20 Attending/Attestation - Attestation I have personally seen and examined this patient.: Yes I have fully participated in the care of the patient.: Yes I have reviewed all pertinent clinical information, including history, physical exam and plan: Yes Notes (Text): 05/11/17 13:24 71 yo male with afib on coumadin, came with traumatic epsitaxis in the setting of iatrogenic coagulopathy, non responsive to conservative measures. Coagulopathy reversed, bleeding stopped. Hb 8.9 to 8.4 over 8 hours, didnt require blood transfusion. ENT to remove packing today. Hemodynamically and respiratory [place] stable. Maxillofacial CT--no orbital floor fracture. Ok to downgrade to tele ccm time 40 min
--- NOTE | 2017-05-11 08:03 | PQF ANEMIA ---
This form is a permanent part of the medical record Dr. Holland, Patient admitted with B/L epistaxis with decreasing hgb/hct requiring 2 UPRBC. Documentation notes anemia but could you further specify if this is acute blood loss anemia, other. Clarification of your documentation is requested to better reflect the severity of illness and intensity of treatment of your patient. Indicators present [x] Anemia []x Drop in H&H from []_11__ to []__8_ [] Hypotension x[] GI Bleed [x] Transfusion(s) [x] Acute bleed other sites x[] Tachycardia [] Surgical Procedure Blood Loss (expected not a complication) Other:[] Location in the medical record that reflects the above clinical findings: [x] labs ,and progress notes , gi consult , ent consult for epistaxis. Treatment Provided: [] PHYSICIAN'S RESPONSE Based on your medical judgment of the clinical indicators outlined above, are you treating this patient for a known or suspected: [x] Acute blood loss anemia [] Chronic blood loss anemia x] Acute on Chronic blood loss anemia [] Anemia due to malignancy [] Anemia due to chemotherapy or radiation therapy [] Anemia of Chronic Disease, please specify: [] [] Other, please indicate type of anemia []___irn=on defiency anemia_ [] If Unable to Determine, please check the box, sign and date. Present On Admission (POA) Indicator: x[] Present at the time of admission [] Not present at the time of admission [] Clinically Undetermined In responding to this query, please exercise your independent professional judgment. The fact that a question is asked does not imply that any particular answer is desired or expected. Thank you for your clarification on this documentation. If you have any questions please call:[ ] * Thank you, [ ]Jessica Perla [facility] #[id number] [employer] MARK
[2017-05-11] MEDS: cefTRIAXone 1 gm 1 GM/100 ML BAG IVPB SCH (09:32)
[2017-05-11] MEDS ORDERED: Albuterol-Ipratrop 3 mg / 0.5 (3 ml) UD IH PRN (10:53)
--- NOTE | 2017-05-11 11:40 | CP.PCM.PN ---
<Veronique Abreu - Last Filed: 05/11/17 11:36> Subjective - Date & Time of Evaluation Date of Evaluation: 05/11/17 Time of Evaluation: 09:10 - Subjective Subjective: S&E at bedside, chart reviewed. at bedside, no reports of bleeding, tolerating oral intake, no BM since admission. No SOB or chest pain. No N/V, dysphagia, or abdominal pain. No acute overnight events reported. s/p 2 units of PRBC yesterday. Objective - Vital Signs/Intake and Output Vital Signs (last 24 hours): Temp Pulse Resp BP Pulse Ox 99.4 F 92 H 23 161/78 H 97 05/11/17 08:00 05/11/17 09:32 05/11/17 07:00 05/11/17 09:32 05/11/17 07:00 Intake and Output: 05/11/17 05/11/17 06:59 18:59 Output Total 1000 Balance -1000 - Medications Medications: Current Medications Acetaminophen (Tylenol 650mg/20.3ml Solution Ud) 650 mg PO Q6H PRN PRN Reason: Pain, moderate (4-7) Albuterol/Ipratropium (Duoneb 3 Mg/0.5 Mg (3 Ml) Ud) 3 ml IH [id number] PRN PRN Reason: Wheezing Allopurinol (Zyloprim) 300 mg PO DAILY [facility] Last Admin: 05/11/17 11:12 Dose: 300 mg Atorvastatin Calcium (Lipitor) 20 mg PO DAILY [facility] Last Admin: 05/11/17 09:32 Dose: 20 mg Digoxin (Lanoxin) 0.125 mg PO 1400 [facility] Last Admin: 05/10/17 14:06 Dose: 0.125 mg Diltiazem HCl (Cardizem) 30 mg PO TID [facility] Last Admin: 05/11/17 09:32 Dose: 30 mg Furosemide (Lasix) 40 mg PO DAILY [facility] Last Admin: 05/11/17 09:32 Dose: 40 mg Sodium Chloride (Sodium Chloride 0.9%) 1,000 mls @ 100 mls/hr IV .Q10H [facility] Last Admin: 05/10/17 11:12 Dose: 100 mls/hr Ceftriaxone Sodium (Rocephin 1 Gram Ivpb) 1 gm in 100 mls @ 100 mls/hr IVPB DAILY [facility] PRN Reason: Protocol Last Admin: 05/11/17 09:32 Dose: 100 mls/hr Lamotrigine (Lamictal) 25 mg PO DAILY [facility] PRN Reason: Protocol Last Admin: 05/11/17 11:12 Dose: 25 mg Ondansetron HCl (Zofran Inj) 4 mg IVP Q4 PRN PRN Reason: Nausea/Vomiting Pantoprazole Sodium (Protonix Inj) 40 mg IVP DAILY [facility] Last Admin: 05/11/17 09:31 Dose: 40 mg Zolpidem Tartrate (Ambien) 5 mg PO HS PRN; Protocol PRN Reason: Insomnia Last Admin: 05/09/17 21:30 Dose: 5 mg - Labs Labs: 05/11/17 05:20 05/11/17 05:20 PT 11.2 Seconds (9.9-11.8) 05/11/17 05:20 INR 1.04 (0.93-1.08) 05/11/17 05:20 APTT 26.4 Seconds (23.7-30.8) 05/11/17 05:20 - Constitutional Appears: No Acute Distress - Head Exam Head Exam: NORMOCEPHALIC - Eye Exam Eye Exam: Normal appearance. absent: Scleral icterus - ENT Exam ENT Exam: Mucous Membranes Moist Additional comments: left nasal packing in place, dry old blood - Neck Exam Neck Exam: Normal Inspection - Respiratory Exam Respiratory Exam: NORMAL BREATHING PATTERN. absent: Respiratory Distress - Cardiovascular Exam Cardiovascular Exam: +S1, +S2 - GI/Abdominal Exam GI & Abdominal Exam: Soft, Normal Bowel Sounds. absent: Guarding, Tenderness, Rebound - Neurological Exam Neurological Exam: Alert, Awake, Oriented x3 - Skin Skin Exam: Dry, Warm Assessment and Plan - Assessment and Plan (Free Text) Assessment: ASSESSMENT: Epitaxsis, maxillary sinus bleed Anemia,s/p blood transfusion Atrial Fibrillation Coagulopathy s/p FFP, Vit K PLAN: diet as tolerated continue PPI monitor H/H on PO Cardizem on IV antibiotics Seen and discussed with Dr. Tanner. <Sesar Tanner V - Last Filed: 05/11/17 23:49> Objective - Vital Signs/Intake and Output Vital Signs (last 24 hours): Temp Pulse Resp BP Pulse Ox 97.7 F 77 25 H 143/61 95 05/11/17 20:00 05/11/17 22:40 05/11/17 22:40 05/11/17 22:00 05/11/17 22:40 - Medications Medications: Current Medications Acetaminophen (Tylenol 650mg/20.3ml Solution Ud) 650 mg PO Q6H PRN PRN Reason: Pain, moderate (4-7) Albuterol/Ipratropium (Duoneb 3 Mg/0.5 Mg (3 Ml) Ud) 3 ml IH [id number] PRN PRN Reason: Wheezing Allopurinol (Zyloprim) 300 mg PO DAILY [facility] Last Admin: 05/11/17 11:12 Dose: 300 mg Atorvastatin Calcium (Lipitor) 20 mg PO DAILY [facility] Last Admin: 05/11/17 09:32 Dose: 20 mg Digoxin (Lanoxin) 0.125 mg PO 1400 [facility] Last Admin: 05/11/17 14:20 Dose: 0.125 mg Diltiazem HCl (Cardizem) 30 mg PO TID [facility] Stop: 05/11/17 23:59 Last Admin: 05/11/17 16:59 Dose: 30 mg Diltiazem HCl (Cardizem Cd) 120 mg PO DAILY [facility] Furosemide (Lasix) 40 mg PO DAILY [facility] Last Admin: 05/11/17 09:32 Dose: 40 mg Sodium Chloride (Sodium Chloride 0.9%) 1,000 mls @ 100 mls/hr IV .Q10H [facility] Last Admin: 05/10/17 11:12 Dose: 100 mls/hr Ceftriaxone Sodium (Rocephin 1 Gram Ivpb) 1 gm in 100 mls @ 100 mls/hr IVPB DAILY [facility] PRN Reason: Protocol Last Admin: 05/11/17 09:32 Dose: 100 mls/hr Lamotrigine (Lamictal) 25 mg PO DAILY [facility] PRN Reason: Protocol Last Admin: 05/11/17 11:12 Dose: 25 mg Ondansetron HCl (Zofran Inj) 4 mg IVP Q4 PRN PRN Reason: Nausea/Vomiting Pantoprazole Sodium (Protonix Inj) 40 mg IVP DAILY [facility] Last Admin: 05/11/17 09:31 Dose: 40 mg Sodium Chloride ([place] Nasal [place]) 1 ml NS TID [facility] Stop: 05/18/17 23:59 Zolpidem Tartrate (Ambien) 5 mg PO HS PRN; Protocol PRN Reason: Insomnia Last Admin: 05/11/17 21:55 Dose: 5 mg - Labs Labs: 05/11/17 05:20 05/11/17 05:20 PT 11.2 Seconds (9.9-11.8) 05/11/17 05:20 INR 1.04 (0.93-1.08) 05/11/17 05:20 APTT 26.4 Seconds (23.7-30.8) 05/11/17 05:20 Attending/Attestation - Attestation I have personally seen and examined this patient.: Yes I have fully participated in the care of the patient.: Yes I have reviewed all pertinent clinical information, including history, physical exam and plan: Yes Notes (Text): this
--- NOTE | 2017-05-11 11:59 | CP.PCM.PN ---
Subjective - Date & Time of Evaluation Date of Evaluation: 05/11/17 Time of Evaluation: 07:15 - Subjective Subjective: Feels tired , breathing from mouth. Objective - Vital Signs/Intake and Output Vital Signs (last 24 hours): Temp Pulse Resp BP Pulse Ox 99.4 F 92 H 23 161/78 H 97 05/11/17 08:00 05/11/17 09:32 05/11/17 07:00 05/11/17 09:32 05/11/17 07:00 Intake and Output: 05/11/17 05/11/17 06:59 18:59 Output Total 1000 Balance -1000 - Medications Medications: Current Medications Acetaminophen (Tylenol 650mg/20.3ml Solution Ud) 650 mg PO Q6H PRN PRN Reason: Pain, moderate (4-7) Albuterol/Ipratropium (Duoneb 3 Mg/0.5 Mg (3 Ml) Ud) 3 ml IH [id number] PRN PRN Reason: Wheezing Allopurinol (Zyloprim) 300 mg PO DAILY [facility] Last Admin: 05/11/17 11:12 Dose: 300 mg Atorvastatin Calcium (Lipitor) 20 mg PO DAILY [facility] Last Admin: 05/11/17 09:32 Dose: 20 mg Digoxin (Lanoxin) 0.125 mg PO 1400 [facility] Last Admin: 05/10/17 14:06 Dose: 0.125 mg Diltiazem HCl (Cardizem) 30 mg PO TID [facility] Last Admin: 05/11/17 09:32 Dose: 30 mg Furosemide (Lasix) 40 mg PO DAILY [facility] Last Admin: 05/11/17 09:32 Dose: 40 mg Sodium Chloride (Sodium Chloride 0.9%) 1,000 mls @ 100 mls/hr IV .Q10H [facility] Last Admin: 05/10/17 11:12 Dose: 100 mls/hr Ceftriaxone Sodium (Rocephin 1 Gram Ivpb) 1 gm in 100 mls @ 100 mls/hr IVPB DAILY [facility] PRN Reason: Protocol Last Admin: 05/11/17 09:32 Dose: 100 mls/hr Lamotrigine (Lamictal) 25 mg PO DAILY [facility] PRN Reason: Protocol Last Admin: 05/11/17 11:12 Dose: 25 mg Ondansetron HCl (Zofran Inj) 4 mg IVP Q4 PRN PRN Reason: Nausea/Vomiting Pantoprazole Sodium (Protonix Inj) 40 mg IVP DAILY [facility] Last Admin: 05/11/17 09:31 Dose: 40 mg Zolpidem Tartrate (Ambien) 5 mg PO HS PRN; Protocol PRN Reason: Insomnia Last Admin: 05/09/17 21:30 Dose: 5 mg - Labs Labs: 05/11/17 05:20 05/11/17 05:20 PT 11.2 Seconds (9.9-11.8) 05/11/17 05:20 INR 1.04 (0.93-1.08) 05/11/17 05:20 APTT 26.4 Seconds (23.7-30.8) 05/11/17 05:20 - Constitutional Appears: Non-toxic - Head Exam Head Exam: ATRAUMATIC Additional comments: packing in left nostril, no active bleeding. - Eye Exam Eye Exam: Conjunctival injection - ENT Exam ENT Exam: Mucous Membranes Dry - Neck Exam Neck Exam: Full ROM - Respiratory Exam Respiratory Exam: Clear to Ausculation Bilateral - Cardiovascular Exam Cardiovascular Exam: Irregular Rhythm Assessment and Plan - Assessment and Plan (Free Text) Assessment: Nose bleed S/p Nasal packing appears Bleeding stopped HTN A fib ch anemia Coumadin on hold ECHo.. Nl LV FX. trace Mr/TR. Plan: For possible removal of nasal packing close monitor for nose bleed continue CARDz Monitor H& H
--- NOTE | 2017-05-11 13:18 | CP.PCM.PN ---
<BrittanySheron - Last Filed: 05/12/17 06:39> Subjective - Date & Time of Evaluation Date of Evaluation: 05/11/17 Time of Evaluation: 13:07 - Subjective Subjective: PGY-[address] Urbina Pt sitting in chair comfortably. by bedside. No acute complaint. Denies SOSA, dizziness, CP, SOB, N/V/D/C, dysuria. No BM x 2 days and less PO intake. No more melena reported asides from the ER episode Objective - Vital Signs/Intake and Output Vital Signs (last 24 hours): Temp Pulse Resp BP Pulse Ox 97.8 F 82 20 140/83 98 05/11/17 12:00 05/11/17 12:00 05/11/17 12:00 05/11/17 12:00 05/11/17 12:00 Intake and Output: 05/11/17 05/11/17 06:59 18:59 Output Total 1000 Balance -1000 - Medications Medications: Current Medications Acetaminophen (Tylenol 650mg/20.3ml Solution Ud) 650 mg PO Q6H PRN PRN Reason: Pain, moderate (4-7) Albuterol/Ipratropium (Duoneb 3 Mg/0.5 Mg (3 Ml) Ud) 3 ml IH [id number] PRN PRN Reason: Wheezing Allopurinol (Zyloprim) 300 mg PO DAILY [facility] Last Admin: 05/11/17 11:12 Dose: 300 mg Atorvastatin Calcium (Lipitor) 20 mg PO DAILY [facility] Last Admin: 05/11/17 09:32 Dose: 20 mg Digoxin (Lanoxin) 0.125 mg PO 1400 [facility] Last Admin: 05/10/17 14:06 Dose: 0.125 mg Diltiazem HCl (Cardizem) 30 mg PO TID [facility] Stop: 05/11/17 23:59 Last Admin: 05/11/17 09:32 Dose: 30 mg Diltiazem HCl (Cardizem Cd) 120 mg PO DAILY [facility] Furosemide (Lasix) 40 mg PO DAILY [facility] Last Admin: 05/11/17 09:32 Dose: 40 mg Sodium Chloride (Sodium Chloride 0.9%) 1,000 mls @ 100 mls/hr IV .Q10H [facility] Last Admin: 05/10/17 11:12 Dose: 100 mls/hr Ceftriaxone Sodium (Rocephin 1 Gram Ivpb) 1 gm in 100 mls @ 100 mls/hr IVPB DAILY [facility] PRN Reason: Protocol Last Admin: 05/11/17 09:32 Dose: 100 mls/hr Lamotrigine (Lamictal) 25 mg PO DAILY [facility] PRN Reason: Protocol Last Admin: 05/11/17 11:12 Dose: 25 mg Ondansetron HCl (Zofran Inj) 4 mg IVP Q4 PRN PRN Reason: Nausea/Vomiting Pantoprazole Sodium (Protonix Inj) 40 mg IVP DAILY [facility] Last Admin: 05/11/17 09:31 Dose: 40 mg Zolpidem Tartrate (Ambien) 5 mg PO HS PRN; Protocol PRN Reason: Insomnia Last Admin: 05/09/17 21:30 Dose: 5 mg - Labs Labs: 05/11/17 05:20 05/11/17 05:20 PT 11.2 Seconds (9.9-11.8) 05/11/17 05:20 INR 1.04 (0.93-1.08) 05/11/17 05:20 APTT 26.4 Seconds (23.7-30.8) 05/11/17 05:20 - Constitutional Appears: No Acute Distress - Head Exam Head Exam: NORMAL INSPECTION Additional comments: L nasal packing in place. dry blood around nairs. R nare dry blood not visible. Throat clear, no bleeding. - Eye Exam Eye Exam: EOMI, Normal appearance, PERRL. absent: Scleral icterus - ENT Exam ENT Exam: Mucous Membranes Moist - Respiratory Exam Respiratory Exam: Clear to Ausculation Bilateral. absent: Rales, Rhonchi, Wheezes - Cardiovascular Exam Cardiovascular Exam: REGULAR RHYTHM, +S1, +S2. absent: Murmur - GI/Abdominal Exam GI & Abdominal Exam: Soft, Normal Bowel Sounds. absent: Tenderness - Extremities Exam Extremities Exam: Normal Capillary Refill, Pedal Edema (slight b/l). absent: Calf Tenderness - Neurological Exam Neurological Exam: Alert, Awake - Psychiatric Exam Psychiatric exam: Normal Affect, Normal Mood - Skin Skin Exam: Dry, Warm Assessment and Plan - Assessment and Plan (Free Text) Plan: 71 morbidly obese male living in [place] on cruise ship, Hx afib s/p maize ablation on coumadin, came to [facility] for sudden b/l epitasix. In the ED, pt vomoted dark red blook and have black stool. INR 3.58 and received Vit K at ED. In the hospital, pt felt lightheaded, fell and hit his head, no LOC. the fall was complicated refractory epitaxis. CT head showed no ICH but air-flid level in L maxillary antrum. CT maxillofacial has ruled out orbital floor or maxillary fracture. ENT placed posterior nasal packing with bactroban top. Pt was downgraded from ICU to tele today. Pt developed rapid a-fib s/p cardizem gtt and now on cardizem PO. L posterior epitaxis - ENT to remove packing today - LEON precaution Acute anemia - s/p 2u pRBC - Hb rised from 7 to 8.9 S/p 2 units prbcs. Today Hb 8.4 - plt 80 - INR 1.04 - protonix 40 qd Thrombocytopenia - DDx: underproduction vs splenic sequestration vs peripheral destruction vs blood dyscrasia could be side effect of lamictal - consider psych consult to review psych med - Unremarkable spleen on CT - doubt TTP - no f/c, SOSA, hemauria, abd/pain - doubt Hep C. normal LFT - check HIV, b12, folate, peripheral smear Iatrogenic coaguloahty from coumadin Hx A-fib - [id number] 3 = Stroke risk 3.2% per year; 4.6% risk of stroke/TIA/systemic embolism. - HAS-Bled 4 = 9% bleed risk. Pt is at high risk for major bleeding - ? restart coumadin? - coumadin currently on hold Melena, likely swallowed blood - advance diet, tolerating well - CT abd/pelv - no acute intraabdominal finding; diverticulosis of sigmoid Will s/r/d/w Dr. Urbina <Talisha Urbina P - Last Filed: 05/14/17 20:16> Objective - Vital Signs/Intake and Output Vital Signs (last 24 hours): Temp Pulse Resp BP Pulse Ox 98.4 F 76 19 130/81 97 05/13/17 09:04 05/13/17 10:44 05/13/17 09:04 05/13/17 10:45 05/13/17 09:04 - Labs Labs: 05/13/17 09:08 05/13/17 09:08 PT 10.9 Seconds (9.9-11.8) 05/13/17 09:08 INR 1.01 (0.93-1.08) 05/13/17 09:08 APTT 26.4 Seconds (23.7-30.8) 05/11/17 05:20 Attending/Attestation - Attestation I have personally seen and examined this patient.: Yes I have fully participated in the care of the patient.: Yes I have reviewed all pertinent clinical information, including history, physical exam and plan: Yes
[2017-05-11] MEDS: Digoxin 125 mcg (0.125 mg) Tab PO SCH (14:20)
[2017-05-12 06:06] LABS: ALB/GLOB RATIO 1.2 (1.1-1.8); ALBUMIN 2.7 g/dL (3.0-4.8); ALT/SGPT 25 U/L (7-56); AST/SGOT 25 U/L (15-59); BLOOD UREA NITROGEN 22 mg/dL (7-21); CALCIUM 8.5 mg/dL (8.4-10.5); GFR AFRICAN-AMERICAN > 60; GFR NON-AFRICAN AMERICAN > 60
[2017-05-12 06:13] LABS: BASO # 0.02 K/mm3 (0.0-2.0); BASO % 0.5 % (0.0-3.0); EOS % 1.1 % (1.5-5.0); GRAN # 2.34 (1.4-6.5); GRAN % 62.2 % (50.0-68.0); LYMPH % 25.3 % (22.0-35.0); MEAN CELL VOLUME 97.6 fL (80.0-105.0); MEAN CORPUSCULAR HEMOGLOBIN 31.9 pg (25.0-35.0); MEAN CORPUSCULAR HGB CONC 32.7 g/dl (31.0-37.0); MEAN PLATELET VOLUME 11.8 fl (7.0-11.0); MONO # 0.4 (0.1-0.6); MONO % 10.9 % (1.0-6.0); PLATELET COUNT 90 10^3/uL (120.0-450.0); RBC 2.51 10^6/uL (3.5-6.1); RED CELL DISTRIBUTION WIDTH 15.8 % (11.5-14.5); WHITE BLOOD COUNT 3.8 10^3/ul (4.5-11.0)
[2017-05-12 06:29] LABS: INR 1.01 (0.93-1.08); PROTHROMBIN TIME 10.9 Seconds (9.9-11.8)
[2017-05-12] MEDS ORDERED: Potassium Chloride 10 mEq ER Tab PO ONE (08:00)
[2017-05-12] MEDS: diltiaZEM 120 mg/24 Hours CD Cap PO SCH (08:47)
[2017-05-12] MEDS: cefTRIAXone 1 gm 1 GM/100 ML BAG IVPB SCH (08:48)
--- NOTE | 2017-05-12 08:53 | CP.PCM.PN ---
Subjective - Date & Time of Evaluation Date of Evaluation: 05/10/17 Time of Evaluation: 17:00 - Subjective Subjective: slept well. little oozefrom the left nostril. tolerate liquid diet. Objective - Vital Signs/Intake and Output Vital Signs (last 24 hours): Temp Pulse Resp BP Pulse Ox 98.3 F 85 16 135/77 96 05/10/17 20:00 05/10/17 20:30 05/10/17 20:30 05/10/17 20:00 05/10/17 20:30 Intake and Output: 05/10/17 05/11/17 18:59 06:59 Intake Total 2720 Output Total 2260 Balance 460 - Medications Medications: Current Medications Acetaminophen (Tylenol 650mg/20.3ml Solution Ud) 650 mg PO Q6H PRN PRN Reason: Pain, moderate (4-7) Allopurinol (Zyloprim) 300 mg PO DAILY [facility] Last Admin: 05/10/17 09:13 Dose: 300 mg Atorvastatin Calcium (Lipitor) 20 mg PO DAILY [facility] Last Admin: 05/10/17 09:12 Dose: 20 mg Digoxin (Lanoxin) 0.125 mg PO 1400 [facility] Last Admin: 05/10/17 14:06 Dose: 0.125 mg Diltiazem HCl (Cardizem) 30 mg PO TID [facility] Last Admin: 05/10/17 17:53 Dose: 30 mg Furosemide (Lasix) 40 mg PO DAILY [facility] Last Admin: 05/10/17 09:12 Dose: 40 mg Sodium Chloride (Sodium Chloride 0.9%) 1,000 mls @ 100 mls/hr IV .Q10H [facility] Last Admin: 05/10/17 11:12 Dose: 100 mls/hr Ceftriaxone Sodium (Rocephin 1 Gram Ivpb) 1 gm in 100 mls @ 100 mls/hr IVPB DAILY [facility] PRN Reason: Protocol Last Admin: 05/10/17 09:13 Dose: 100 mls/hr Lamotrigine (Lamictal) 25 mg PO DAILY [facility] PRN Reason: Protocol Last Admin: 05/10/17 09:11 Dose: 25 mg Ondansetron HCl (Zofran Inj) 4 mg IVP Q4 PRN PRN Reason: Nausea/Vomiting Pantoprazole Sodium (Protonix Inj) 40 mg IVP DAILY [facility] Last Admin: 05/10/17 09:13 Dose: 40 mg Zolpidem Tartrate (Ambien) 5 mg PO HS PRN; Protocol PRN Reason: Insomnia Last Admin: 05/09/17 21:30 Dose: 5 mg - Labs Labs: 05/10/17 20:00 05/10/17 05:30 PT 11.9 Seconds (9.9-11.8) H 05/10/17 05:30 INR 1.10 (0.93-1.08) H 05/10/17 05:30 APTT 39.5 Seconds (23.7-30.8) H 05/08/17 08:15 - Head Exam Head Exam: ATRAUMATIC, NORMAL INSPECTION, NORMOCEPHALIC - Eye Exam Eye Exam: Conjunctival injection, EOMI, Normal appearance, Nystagmus, Periorbital swelling, Periorbital tenderness, PERRL, Scleral icterus Pupil Exam: NORMAL ACCOMODATION, PERRL - ENT Exam ENT Exam: Mucous Membranes Moist, Normal Exam Additional comments: left nostril packing,minimal bloody disharge - Neck Exam Neck Exam: absent: Lymphadenopathy - Respiratory Exam Respiratory Exam: Clear to Ausculation Bilateral, NORMAL BREATHING PATTERN - Cardiovascular Exam Cardiovascular Exam: REGULAR RHYTHM, +S1, +S2. absent: Murmur - GI/Abdominal Exam GI & Abdominal Exam: Soft, Normal Bowel Sounds. absent: Tenderness - Rectal Exam Rectal Exam: Deferred - Exam Exam: Circumcision, NORMAL INSPECTION. absent: Scrotal Swelling, Testicular Tenderness, Uretheral Discharge, Testicular Vertical Lie, Bladder Distension - Extremities Exam Extremities Exam: Full ROM, Normal Capillary Refill, Normal Inspection. absent : Joint Swelling, Pedal Edema - Back Exam Back Exam: NORMAL INSPECTION - Neurological Exam Neurological Exam: Alert, Awake, CN II-XII Intact, Normal Gait, Oriented x3 Neuro motor strength exam: Left Upper Extremity: 5, Right Upper Extremity: 5, Left Lower Extremity: 5, Right Lower Extremity: 5 Assessment and Plan (1) Afib Status: Acute (2) Anticoagulant long-term use Status: Acute (3) Epistaxis Status: Acute (4) Fall Status: Acute (5) Guaiac positive stools Status: Acute (6) Thrombocytopenia Status: Acute (7) Dehydration Status: Resolved - Assessment and Plan (Free Text) Assessment: patient will be seen by ent in am for eval , epistaxis Plan: transfuse 2 units 2 pack rbcs, monitor platlets, in am po cardizem hr 80, stable vitals continue iv fluid, better bun/creatinine repeatlabs in am continue ambien prn ,scds for dvt , iv protonix, iv rocephine
--- NOTE | 2017-05-12 09:33 | CP.PCM.PN ---
<Sheron Soto - Last Filed: 05/12/17 09:33> Subjective - Date & Time of Evaluation Date of Evaluation: 05/12/17 Time of Evaluation: 09:30 - Subjective Subjective: PGY-[address] Urbina Pt resting in bed comfortably. Tolerate dinner well. + BM, dark Denies SOSA, dizziness, CP, palpitation SOB, N/V/D/c, dysuria Objective - Vital Signs/Intake and Output Vital Signs (last 24 hours): Temp Pulse Resp BP Pulse Ox 98 F 83 22 136/82 97 05/12/17 07:46 05/12/17 08:47 05/12/17 07:30 05/12/17 08:47 05/12/17 07:40 Intake and Output: 05/12/17 05/12/17 06:59 18:59 Output Total 275 Balance -275 - Medications Medications: Current Medications Acetaminophen (Tylenol 650mg/20.3ml Solution Ud) 650 mg PO Q6H PRN PRN Reason: Pain, moderate (4-7) Albuterol/Ipratropium (Duoneb 3 Mg/0.5 Mg (3 Ml) Ud) 3 ml IH [id number] PRN PRN Reason: Wheezing Allopurinol (Zyloprim) 300 mg PO DAILY [facility] Last Admin: 05/11/17 11:12 Dose: 300 mg Atorvastatin Calcium (Lipitor) 20 mg PO DAILY [facility] Last Admin: 05/12/17 08:47 Dose: 20 mg Digoxin (Lanoxin) 0.125 mg PO 1400 [facility] Last Admin: 05/11/17 14:20 Dose: 0.125 mg Diltiazem HCl (Cardizem Cd) 120 mg PO DAILY [facility] Last Admin: 05/12/17 08:47 Dose: 120 mg Furosemide (Lasix) 40 mg PO DAILY [facility] Last Admin: 05/12/17 08:46 Dose: 40 mg Sodium Chloride (Sodium Chloride 0.9%) 1,000 mls @ 100 mls/hr IV .Q10H [facility] Last Admin: 05/10/17 11:12 Dose: 100 mls/hr Ceftriaxone Sodium (Rocephin 1 Gram Ivpb) 1 gm in 100 mls @ 100 mls/hr IVPB DAILY [facility] PRN Reason: Protocol Last Admin: 05/12/17 08:48 Dose: 100 mls/hr Lamotrigine (Lamictal) 25 mg PO DAILY [facility] PRN Reason: Protocol Last Admin: 05/11/17 11:12 Dose: 25 mg Ondansetron HCl (Zofran Inj) 4 mg IVP Q4 PRN PRN Reason: Nausea/Vomiting Pantoprazole Sodium (Protonix Inj) 40 mg IVP DAILY [facility] Last Admin: 05/12/17 08:45 Dose: 40 mg Sodium Chloride (Walker Nasal [place]) 1 ml NS TID [facility] Stop: 05/18/17 23:59 Zolpidem Tartrate (Ambien) 5 mg PO HS PRN; Protocol PRN Reason: Insomnia Last Admin: 05/11/17 21:55 Dose: 5 mg - Labs Labs: 05/12/17 05:20 05/12/17 05:20 PT 10.9 Seconds (9.9-11.8) 05/12/17 05:20 INR 1.01 (0.93-1.08) 05/12/17 05:20 APTT 26.4 Seconds (23.7-30.8) 05/11/17 05:20 - Constitutional Appears: No Acute Distress - Head Exam Head Exam: ATRAUMATIC, NORMAL INSPECTION, NORMOCEPHALIC - Eye Exam Eye Exam: EOMI, PERRL. absent: Scleral icterus - ENT Exam ENT Exam: Mucous Membranes Moist - Neck Exam Neck Exam: absent: Meningismus - Respiratory Exam Respiratory Exam: Clear to Ausculation Bilateral. absent: Rales, Rhonchi, Wheezes - Cardiovascular Exam Cardiovascular Exam: Irregular Rhythm, +S1, +S2 - GI/Abdominal Exam GI & Abdominal Exam: Soft, Normal Bowel Sounds. absent: Guarding, Rigid, Tenderness, Organomegaly - Extremities Exam Extremities Exam: Normal Capillary Refill. absent: Calf Tenderness, Pedal Edema , Tenderness - Back Exam Back Exam: absent: CVA tenderness (L), CVA tenderness (R) - Neurological Exam Neurological Exam: Alert, Awake, CN II-XII Intact, Oriented x3 - Psychiatric Exam Psychiatric exam: Normal Affect, Normal Mood - Skin Skin Exam: Dry, Warm Assessment and Plan - Assessment and Plan (Free Text) Plan: 71 morbidly obese male living in [place] cruise ship, Hx afib s/p maize ablation on coumadin, came to [facility] for sudden b/l epitasix. In the ED, pt vomoted dark red blook and have black stool. INR 3.58 and received Vit K at ED. In the hospital, pt felt lightheaded, fell and hit his head, no LOC. the fall was complicated refractory epitaxis. CT head showed no ICH but air-flid level in L maxillary antrum. CT maxillofacial has ruled out orbital floor or maxillary fracture. ENT placed posterior nasal packing with bactroban top. Pt was downgraded from ICU to tele today. Pt developed rapid a-fib s/p cardizem gtt and now on cardizem PO. L posterior epitaxis - resolved - Posterior nasal packing removed yesterday - LEON precaution Acute anemia - s/p 2u pRBC - Hb 8.0 (8.4) - plt 90 (80) - INR 1.01 - protonix 40 qd Thrombocytopenia - DDx: underproduction vs splenic sequestration vs peripheral destruction vs blood dyscrasia could be side effect of lamictal - consider psych consult to review psych med - Unremarkable spleen on CT - doubt TTP - no f/c, SOSA, hemauria, abd/pain - doubt Hep C. normal LFT - check HIV, b12, folate, peripheral smear - pending Iatrogenic coaguloahty from coumadin Hx A-fib - [id number] 3 = Stroke risk 3.2% per year; 4.6% risk of stroke/TIA/systemic embolism. - HAS-Bled 4 = 9% bleed risk. Pt is at high risk for major bleeding - Pending cardio re: decision to restart coumadin with heparin bridge - coumadin currently on hold Melena, likely swallowed blood - advance diet, tolerating well - CT abd/pelv - no acute intraabdominal finding; diverticulosis of sigmoid s/r/d/w Dr. Urbina <Talisha Urbina P - Last Filed: 05/14/17 20:07> Objective - Vital Signs/Intake and Output Vital Signs (last 24 hours): Temp Pulse Resp BP Pulse Ox 98.4 F 76 19 130/81 97 05/13/17 09:04 05/13/17 10:44 05/13/17 09:04 05/13/17 10:45 05/13/17 09:04 - Labs Labs: 05/13/17 09:08 05/13/17 09:08 PT 10.9 Seconds (9.9-11.8) 05/13/17 09:08 INR 1.01 (0.93-1.08) 05/13/17 09:08 APTT 26.4 Seconds (23.7-30.8) 05/11/17 05:20 Attending/Attestation - Attestation I have personally seen and examined this patient.: Yes I have fully participated in the care of the patient.: Yes I have reviewed all pertinent clinical information, including history, physical exam and plan: Yes
--- NOTE | 2017-05-12 10:14 | CP.PCM.PN ---
<Veronique Abreu - Last Filed: 05/12/17 10:22> Subjective - Date & Time of Evaluation Date of Evaluation: 05/12/17 Time of Evaluation: 09:10 - Subjective Subjective: S&E in ICU, nasal packing now removed last night, no reports of further bleeding. Tolerating oral intake, had BM last night, non this am yet, NO SOB, CP , N/V or abdominal pain. No acute overnight events reported. Objective - Vital Signs/Intake and Output Vital Signs (last 24 hours): Temp Pulse Resp BP Pulse Ox 98 F 83 22 136/82 97 05/12/17 07:46 05/12/17 08:47 05/12/17 07:30 05/12/17 08:47 05/12/17 07:40 Intake and Output: 05/12/17 05/12/17 06:59 18:59 Output Total 275 Balance -275 - Medications Medications: Current Medications Acetaminophen (Tylenol 650mg/20.3ml Solution Ud) 650 mg PO Q6H PRN PRN Reason: Pain, moderate (4-7) Albuterol/Ipratropium (Duoneb 3 Mg/0.5 Mg (3 Ml) Ud) 3 ml IH [id number] PRN PRN Reason: Wheezing Allopurinol (Zyloprim) 300 mg PO DAILY [facility] Last Admin: 05/11/17 11:12 Dose: 300 mg Atorvastatin Calcium (Lipitor) 20 mg PO DAILY [facility] Last Admin: 05/12/17 08:47 Dose: 20 mg Digoxin (Lanoxin) 0.125 mg PO 1400 [facility] Last Admin: 05/11/17 14:20 Dose: 0.125 mg Diltiazem HCl (Cardizem Cd) 120 mg PO DAILY [facility] Last Admin: 05/12/17 08:47 Dose: 120 mg Furosemide (Lasix) 40 mg PO DAILY [facility] Last Admin: 05/12/17 08:46 Dose: 40 mg Sodium Chloride (Sodium Chloride 0.9%) 1,000 mls @ 100 mls/hr IV .Q10H [facility] Last Admin: 05/10/17 11:12 Dose: 100 mls/hr Ceftriaxone Sodium (Rocephin 1 Gram Ivpb) 1 gm in 100 mls @ 100 mls/hr IVPB DAILY [facility] PRN Reason: Protocol Last Admin: 05/12/17 08:48 Dose: 100 mls/hr Lamotrigine (Lamictal) 25 mg PO DAILY [facility] PRN Reason: Protocol Last Admin: 05/11/17 11:12 Dose: 25 mg Ondansetron HCl (Zofran Inj) 4 mg IVP Q4 PRN PRN Reason: Nausea/Vomiting Pantoprazole Sodium (Protonix Inj) 40 mg IVP DAILY [facility] Last Admin: 05/12/17 08:45 Dose: 40 mg Sodium Chloride ([place] Nasal [place]) 1 ml NS TID EMI Stop: 05/18/17 23:59 Zolpidem Tartrate (Ambien) 5 mg PO HS PRN; Protocol PRN Reason: Insomnia Last Admin: 05/11/17 21:55 Dose: 5 mg - Labs Labs: 05/12/17 05:20 05/12/17 05:20 PT 10.9 Seconds (9.9-11.8) 05/12/17 05:20 INR 1.01 (0.93-1.08) 05/12/17 05:20 APTT 26.4 Seconds (23.7-30.8) 05/11/17 05:20 - Constitutional Appears: No Acute Distress - Head Exam Head Exam: NORMAL INSPECTION - Eye Exam Eye Exam: Normal appearance. absent: Scleral icterus - ENT Exam ENT Exam: Mucous Membranes Moist - Neck Exam Neck Exam: Normal Inspection - Respiratory Exam Respiratory Exam: Decreased Breath Sounds, NORMAL BREATHING PATTERN. absent: Rales, Wheezes, Respiratory Distress - Cardiovascular Exam Cardiovascular Exam: +S1, +S2 - GI/Abdominal Exam GI & Abdominal Exam: Soft, Normal Bowel Sounds. absent: Guarding, Tenderness, Organomegaly, Rebound - Extremities Exam Extremities Exam: absent: Calf Tenderness, Pedal Edema - Neurological Exam Neurological Exam: Alert, Awake, Oriented x3 - Skin Skin Exam: Dry, Warm Assessment and Plan - Assessment and Plan (Free Text) Assessment: ASSESSMENT: Epitaxsis, maxillary sinus bleed Anemia,s/p blood transfusion Atrial Fibrillation Coagulopathy s/p FFP, Vit K Thrombocytopenia PLAN: diet as tolerated PPI stopped for thrombocytopenia as per hematolgy, change to carafate, spoke to hematology monitor H/H on PO Cardizem on IV antibiotics: Ceftriaxone Discuss with patient regarding EGD evaluation of Anemia,blood loss likely secondary to nose bleeding, but r/o PUD, angiodyplasia, has had multiple blood transfusion, hgb still low, patient does not want EGD. Seen and discussed with Dr. Tanner. <Sesar Tanner V - Last Filed: 05/12/17 23:39> Objective - Vital Signs/Intake and Output Vital Signs (last 24 hours): Temp Pulse Resp BP Pulse Ox 98.5 F 92 H 79 H 124/74 98 05/12/17 16:00 05/12/17 17:00 05/12/17 16:00 05/12/17 16:00 05/12/17 16:00 Intake and Output: 05/12/17 05/13/17 18:59 06:59 Intake Total 360 540 Balance 360 540 - Medications Medications: Current Medications Acetaminophen (Tylenol 650mg/20.3ml Solution Ud) 650 mg PO Q6H PRN PRN Reason: Pain, moderate (4-7) Albuterol/Ipratropium (Duoneb 3 Mg/0.5 Mg (3 Ml) Ud) 3 ml IH [id number] PRN PRN Reason: Wheezing Allopurinol (Zyloprim) 300 mg PO DAILY [facility] Last Admin: 05/12/17 11:25 Dose: 300 mg Atorvastatin Calcium (Lipitor) 20 mg PO DAILY [facility] Last Admin: 05/12/17 08:47 Dose: 20 mg Digoxin (Lanoxin) 0.125 mg PO 1400 [facility] Last Admin: 05/12/17 14:00 Dose: 0.125 mg Diltiazem HCl (Cardizem Cd) 120 mg PO DAILY [facility] Last Admin: 05/12/17 08:47 Dose: 120 mg Ferrous Sulfate (Feosol) 324 mg PO TID EMI Last Admin: 05/12/17 17:11 Dose: 324 mg Furosemide (Lasix) 40 mg PO DAILY [facility] Last Admin: 05/12/17 08:46 Dose: 40 mg Sodium Chloride (Sodium Chloride 0.9%) 1,000 mls @ 100 mls/hr IV .Q10H [facility] Last Admin: 05/10/17 11:12 Dose: 100 mls/hr Ceftriaxone Sodium (Rocephin 1 Gram Ivpb) 1 gm in 100 mls @ 100 mls/hr IVPB DAILY [facility] PRN Reason: Protocol Last Admin: 05/12/17 08:48 Dose: 100 mls/hr Lamotrigine (Lamictal) 25 mg PO DAILY [facility] PRN Reason: Protocol Last Admin: 05/12/17 11:24 Dose: 25 mg Multivitamins/Minerals (Therapeutic-M Tab) 1 tab PO 0800 [facility] Ondansetron HCl (Zofran Inj) 4 mg IVP Q4 PRN PRN Reason: Nausea/Vomiting Pantoprazole Sodium (Protonix Inj) 40 mg IVP DAILY [facility] Last Admin: 05/12/17 08:45 Dose: 40 mg Sodium Chloride ([place] Nasal [place]) 1 ml NS TID EMI Stop: 05/18/17 23:59 Last Admin: 05/12/17 17:12 Dose: 1 spr Sucralfate (Carafate Oral Susp) 1 gm PO ACHS EMI Last Admin: 05/12/17 22:17 Dose: Not Given Warfarin Sodium (Coumadin) 5 mg PO 1800 EMI PRN Reason: Protocol Zolpidem Tartrate (Ambien) 5 mg PO HS PRN; Protocol PRN Reason: Insomnia Last Admin: 05/11/17 21:55 Dose: 5 mg - Labs Labs: 05/12/17 16:30 05/12/17 05:20 PT 10.9 Seconds (9.9-11.8) 05/12/17 05:20 INR 1.01 (0.93-1.08) 05/12/17 05:20 APTT 26.4 Seconds (23.7-30.8) 05/11/17 05:20 Attending/Attestation - Attestation I have personally seen and examined this patient.: Yes I have fully participated in the care of the patient.: Yes I have reviewed all pertinent clinical information, including history, physical exam and plan: Yes Notes (Text):
--- NOTE | 2017-05-12 10:22 | CP.PCM.PN ---
Subjective - Date & Time of Evaluation Date of Evaluation: 05/11/17 Time of Evaluation: 20:00 - Subjective Subjective: s/p rmoval of nasal pack. no more epistaxix. feel ok. asking for sleeping pill. no chest pain or dyspnea, scds on Objective - Vital Signs/Intake and Output Vital Signs (last 24 hours): Temp Pulse Resp BP Pulse Ox 98 F 83 22 136/82 97 05/12/17 07:46 05/12/17 08:47 05/12/17 07:30 05/12/17 08:47 05/12/17 07:40 Intake and Output: 05/12/17 05/12/17 06:59 18:59 Output Total 275 Balance -275 - Medications Medications: Current Medications Acetaminophen (Tylenol 650mg/20.3ml Solution Ud) 650 mg PO Q6H PRN PRN Reason: Pain, moderate (4-7) Albuterol/Ipratropium (Duoneb 3 Mg/0.5 Mg (3 Ml) Ud) 3 ml IH [id number] PRN PRN Reason: Wheezing Allopurinol (Zyloprim) 300 mg PO DAILY [facility] Last Admin: 05/11/17 11:12 Dose: 300 mg Atorvastatin Calcium (Lipitor) 20 mg PO DAILY [facility] Last Admin: 05/12/17 08:47 Dose: 20 mg Digoxin (Lanoxin) 0.125 mg PO 1400 [facility] Last Admin: 05/11/17 14:20 Dose: 0.125 mg Diltiazem HCl (Cardizem Cd) 120 mg PO DAILY [facility] Last Admin: 05/12/17 08:47 Dose: 120 mg Furosemide (Lasix) 40 mg PO DAILY [facility] Last Admin: 05/12/17 08:46 Dose: 40 mg Sodium Chloride (Sodium Chloride 0.9%) 1,000 mls @ 100 mls/hr IV .Q10H [facility] Last Admin: 05/10/17 11:12 Dose: 100 mls/hr Ceftriaxone Sodium (Rocephin 1 Gram Ivpb) 1 gm in 100 mls @ 100 mls/hr IVPB DAILY [facility] PRN Reason: Protocol Last Admin: 05/12/17 08:48 Dose: 100 mls/hr Lamotrigine (Lamictal) 25 mg PO DAILY [facility] PRN Reason: Protocol Last Admin: 05/11/17 11:12 Dose: 25 mg Ondansetron HCl (Zofran Inj) 4 mg IVP Q4 PRN PRN Reason: Nausea/Vomiting Pantoprazole Sodium (Protonix Inj) 40 mg IVP DAILY [facility] Last Admin: 05/12/17 08:45 Dose: 40 mg Sodium Chloride ([place] Nasal [place]) 1 ml NS TID [facility] Stop: 05/18/17 23:59 Zolpidem Tartrate (Ambien) 5 mg PO HS PRN; Protocol PRN Reason: Insomnia Last Admin: 05/11/17 21:55 Dose: 5 mg - Labs Labs: 05/12/17 05:20 05/12/17 05:20 PT 10.9 Seconds (9.9-11.8) 05/12/17 05:20 INR 1.01 (0.93-1.08) 05/12/17 05:20 APTT 26.4 Seconds (23.7-30.8) 05/11/17 05:20 - Constitutional Appears: Well - Head Exam Additional comments: molat flush . left nasal nares blood tinged mucosa , no bleeding left nostril - Eye Exam Eye Exam: EOMI, Normal appearance, PERRL - ENT Exam ENT Exam: Mucous Membranes Moist, Normal Exam Additional comments: nasal left side mucosa tinged blood, - Neck Exam Neck Exam: Full ROM, Normal Inspection. absent: Lymphadenopathy - Respiratory Exam Respiratory Exam: Clear to Ausculation Bilateral, NORMAL BREATHING PATTERN - Cardiovascular Exam Cardiovascular Exam: Irregular Rhythm (a fib), REGULAR RHYTHM, +S1, +S2. absent : Murmur - GI/Abdominal Exam GI & Abdominal Exam: Bruit, Distended, Firm, Guarding, Rigid, Soft, Tenderness, Diminished Bowel Sounds, Hernia, Hyperactive Bowel Sounds, Hypoactive Bowel Sounds, Mass, Normal Bowel Sounds, Organomegaly, Pulsatile Mass, Rebound - Rectal Exam Rectal Exam: Deferred, NORMAL INSPECTION Assessment and Plan - Assessment and Plan (Free Text) Assessment: nose bleed off packing , no more bleed htn stable afib stable ? anticoagulaate when, morbid obese anxiety thrombocytopenia h/o alchole abuse h/o cardiomyopathy? Plan: transfer to medical floor. continue current meds, f/up with other consult.
--- NOTE | 2017-05-12 10:33 | CP.PCM.PN ---
Subjective - Date & Time of Evaluation Date of Evaluation: 05/12/17 Time of Evaluation: 07:00 - Subjective Subjective: Feels Ok no Nose bleed, No palpitation. Objective - Vital Signs/Intake and Output Vital Signs (last 24 hours): Temp Pulse Resp BP Pulse Ox 98 F 83 22 136/82 97 05/12/17 07:46 05/12/17 08:47 05/12/17 07:30 05/12/17 08:47 05/12/17 07:40 Intake and Output: 05/12/17 05/12/17 06:59 18:59 Output Total 275 Balance -275 - Medications Medications: Current Medications Acetaminophen (Tylenol 650mg/20.3ml Solution Ud) 650 mg PO Q6H PRN PRN Reason: Pain, moderate (4-7) Albuterol/Ipratropium (Duoneb 3 Mg/0.5 Mg (3 Ml) Ud) 3 ml IH [id number] PRN PRN Reason: Wheezing Allopurinol (Zyloprim) 300 mg PO DAILY [facility] Last Admin: 05/11/17 11:12 Dose: 300 mg Atorvastatin Calcium (Lipitor) 20 mg PO DAILY [facility] Last Admin: 05/12/17 08:47 Dose: 20 mg Digoxin (Lanoxin) 0.125 mg PO 1400 [facility] Last Admin: 05/11/17 14:20 Dose: 0.125 mg Diltiazem HCl (Cardizem Cd) 120 mg PO DAILY [facility] Last Admin: 05/12/17 08:47 Dose: 120 mg Furosemide (Lasix) 40 mg PO DAILY [facility] Last Admin: 05/12/17 08:46 Dose: 40 mg Sodium Chloride (Sodium Chloride 0.9%) 1,000 mls @ 100 mls/hr IV .Q10H [facility] Last Admin: 05/10/17 11:12 Dose: 100 mls/hr Ceftriaxone Sodium (Rocephin 1 Gram Ivpb) 1 gm in 100 mls @ 100 mls/hr IVPB DAILY [facility] PRN Reason: Protocol Last Admin: 05/12/17 08:48 Dose: 100 mls/hr Lamotrigine (Lamictal) 25 mg PO DAILY [facility] PRN Reason: Protocol Last Admin: 05/11/17 11:12 Dose: 25 mg Ondansetron HCl (Zofran Inj) 4 mg IVP Q4 PRN PRN Reason: Nausea/Vomiting Pantoprazole Sodium (Protonix Inj) 40 mg IVP DAILY [facility] Last Admin: 05/12/17 08:45 Dose: 40 mg Sodium Chloride ([place] Nasal [place]) 1 ml NS TID EMI Stop: 05/18/17 23:59 Sucralfate (Carafate Oral Susp) 1 gm PO ACHS EMI Zolpidem Tartrate (Ambien) 5 mg PO HS PRN; Protocol PRN Reason: Insomnia Last Admin: 05/11/17 21:55 Dose: 5 mg - Labs Labs: 05/12/17 05:20 05/12/17 05:20 PT 10.9 Seconds (9.9-11.8) 05/12/17 05:20 INR 1.01 (0.93-1.08) 05/12/17 05:20 APTT 26.4 Seconds (23.7-30.8) 05/11/17 05:20 - Constitutional Appears: Well - Head Exam Head Exam: ATRAUMATIC - Eye Exam Eye Exam: Conjunctival injection - ENT Exam ENT Exam: Mucous Membranes Dry - Neck Exam Neck Exam: Full ROM - Respiratory Exam Respiratory Exam: Clear to Ausculation Bilateral - Cardiovascular Exam Cardiovascular Exam: REGULAR RHYTHM Assessment and Plan - Assessment and Plan (Free Text) Assessment: Nose Bleed Anemia Ch Afib HTN S/p [place] Procedue was on anticoagulation Plan: Tx to tele monitor For nose Bleed Continue to hold coumadin for 24 hours Add hematinics Multi vitamin. continue Cardiazem.
[2017-05-12] MEDS: Sucralfate 1 gm/10 ml Oral Susp UD PO SCH ×4 (11:24→22:17)
[2017-05-12] MEDS: Digoxin 125 mcg (0.125 mg) Tab PO SCH (14:00)
[2017-05-12 14:02] VITALS: PULSE 96
[2017-05-12 14:52] LABS: FOLATE 4.3 ng/mL
[2017-05-12 16:40] LABS: BASO # 0.02 K/mm3 (0.0-2.0); BASO % 0.4 % (0.0-3.0); EOS % 0.9 % (1.5-5.0); GRAN # 3.12 (1.4-6.5); GRAN % 69.3 % (50.0-68.0); HEMOGLOBIN 8.9 gm/dL (14.0-18.0); LYMPH # 0.8 (1.2-3.4); LYMPH % 18.7 % (22.0-35.0); MEAN CELL VOLUME 98.5 fL (80.0-105.0); MEAN CORPUSCULAR HEMOGLOBIN 32.6 pg (25.0-35.0); MEAN CORPUSCULAR HGB CONC 33.1 g/dl (31.0-37.0); MEAN PLATELET VOLUME 11.6 fl (7.0-11.0); MONO # 0.5 (0.1-0.6); MONO % 10.7 % (1.0-6.0); PLATELET COUNT 110 10^3/uL (120.0-450.0); RBC 2.73 10^6/uL (3.5-6.1); RED CELL DISTRIBUTION WIDTH 15.9 % (11.5-14.5); WHITE BLOOD COUNT 4.5 10^3/ul (4.5-11.0)
[2017-05-13] MEDS ORDERED: Multivitamin With Minerals Tab PO SCH (08:00)
[2017-05-13 09:05] VITALS: BP 130/81; PULSE 76; RESP 19; TEMP 98.4; O2SAT 97
[2017-05-13 09:10] LABS: HEMOGLOBIN 9.2 gm/dL (14.0-18.0); MEAN CELL VOLUME 98.3 fL (80.0-105.0); MEAN CORPUSCULAR HEMOGLOBIN 32.2 pg (25.0-35.0); MEAN CORPUSCULAR HGB CONC 32.7 g/dl (31.0-37.0); RBC 2.86 10^6/uL (3.5-6.1); RED CELL DISTRIBUTION WIDTH 15.7 % (11.5-14.5); WHITE BLOOD COUNT 4.3 10^3/ul (4.5-11.0)
[2017-05-13 09:19] LABS: INR 1.01 (0.93-1.08); PROTHROMBIN TIME 10.9 Seconds (9.9-11.8)
[2017-05-13 09:21] LABS: ALB/GLOB RATIO 1.3 (1.1-1.8); ALBUMIN 3.5 g/dL (3.0-4.8); ALT/SGPT 34 U/L (7-56); AST/SGOT 28 U/L (15-59); BLOOD UREA NITROGEN 19 mg/dL (7-21); GFR AFRICAN-AMERICAN > 60; GFR NON-AFRICAN AMERICAN > 60
[2017-05-13] MEDS ORDERED: Potassium Chloride 20 mEq ER Tab PO ONE (09:27)
--- NOTE | 2017-05-13 09:34 | CP.PCM.PN ---
Subjective - Date & Time of Evaluation Date of Evaluation: 05/13/17 Time of Evaluation: 08:15 - Subjective Subjective: No new c/o , no nose bleed , wants to go home and wanted to Dc tele Objective - Vital Signs/Intake and Output Vital Signs (last 24 hours): Temp Pulse Resp BP Pulse Ox 98.4 F 76 19 130/81 97 05/13/17 09:04 05/13/17 09:04 05/13/17 09:04 05/13/17 09:04 05/13/17 09:04 Intake and Output: 05/13/17 05/13/17 06:59 18:59 Intake Total 660 Output Total 0 Balance 660 - Medications Medications: Current Medications Acetaminophen (Tylenol 650mg/20.3ml Solution Ud) 650 mg PO Q6H PRN PRN Reason: Pain, moderate (4-7) Albuterol/Ipratropium (Duoneb 3 Mg/0.5 Mg (3 Ml) Ud) 3 ml IH [id number] PRN PRN Reason: Wheezing Allopurinol (Zyloprim) 300 mg PO DAILY [facility] Last Admin: 05/12/17 11:25 Dose: 300 mg Atorvastatin Calcium (Lipitor) 20 mg PO DAILY [facility] Last Admin: 05/12/17 08:47 Dose: 20 mg Digoxin (Lanoxin) 0.125 mg PO 1400 [facility] Last Admin: 05/12/17 14:00 Dose: 0.125 mg Diltiazem HCl (Cardizem Cd) 120 mg PO DAILY [facility] Last Admin: 05/12/17 08:47 Dose: 120 mg Ferrous Sulfate (Feosol) 324 mg PO TID [facility] Last Admin: 05/12/17 17:11 Dose: 324 mg Furosemide (Lasix) 40 mg PO DAILY [facility] Last Admin: 05/12/17 08:46 Dose: 40 mg Sodium Chloride (Sodium Chloride 0.9%) 1,000 mls @ 100 mls/hr IV .Q10H [facility] Last Admin: 05/10/17 11:12 Dose: 100 mls/hr Ceftriaxone Sodium (Rocephin 1 Gram Ivpb) 1 gm in 100 mls @ 100 mls/hr IVPB DAILY [facility] PRN Reason: Protocol Last Admin: 05/12/17 08:48 Dose: 100 mls/hr Lamotrigine (Lamictal) 25 mg PO DAILY [facility] PRN Reason: Protocol Last Admin: 05/12/17 11:24 Dose: 25 mg Multivitamins/Minerals (Therapeutic-M Tab) 1 tab PO 0800 [facility] Ondansetron HCl (Zofran Inj) 4 mg IVP Q4 PRN PRN Reason: Nausea/Vomiting Pantoprazole Sodium (Protonix Inj) 40 mg IVP DAILY [facility] Last Admin: 05/12/17 08:45 Dose: 40 mg Potassium Chloride (K-Dur 20 Meq Er Tab) 40 meq PO ONCE ONE Stop: 05/13/17 09:28 Sodium Chloride ([place] Nasal [place]) 1 ml NS TID EMI Stop: 05/18/17 23:59 Last Admin: 05/12/17 17:12 Dose: 1 spr Sucralfate (Carafate Oral Susp) 1 gm PO ACHS [facility] Last Admin: 05/12/17 22:17 Dose: Not Given Warfarin Sodium (Coumadin) 5 mg PO 1000 ONE Stop: 05/13/17 10:01 Zolpidem Tartrate (Ambien) 5 mg PO HS PRN; Protocol PRN Reason: Insomnia Last Admin: 05/11/17 21:55 Dose: 5 mg - Labs Labs: 05/13/17 09:08 05/13/17 09:08 PT 10.9 Seconds (9.9-11.8) 05/13/17 09:08 INR 1.01 (0.93-1.08) 05/13/17 09:08 APTT 26.4 Seconds (23.7-30.8) 05/11/17 05:20 - Constitutional Appears: Non-toxic - Head Exam Head Exam: ATRAUMATIC - Eye Exam Eye Exam: Conjunctival injection - ENT Exam ENT Exam: Mucous Membranes Dry Additional comments: No nose bleed - Neck Exam Neck Exam: Full ROM - Respiratory Exam Respiratory Exam: Clear to Ausculation Bilateral - Cardiovascular Exam Cardiovascular Exam: REGULAR RHYTHM Assessment and Plan - Assessment and Plan (Free Text) Assessment: S/p Nose bleed...stopped No bleed >48 hour started on coumadin Hx of Ch Afib recnet Echo Preserved Lv Fx Hx of [place] procedure HTN Plan: DC tele Coumadin 5 mg at 10;am No bridge with Lovenox( high risk for rebleed, so gradually increase INR, let Nose wound heal slowly) ok to DC pt has flight reservation tonight, explained pt to get pt /INR tomorrow with PMD Discussed with Drs. Holland/ Davy and nursing staff taking care of Pt.
[2017-05-13] MEDS: Sucralfate 1 gm/10 ml Oral Susp UD PO SCH (10:43)
--- NOTE | 2017-05-13 10:43 | CP.PCM.PN ---
Subjective - Date & Time of Evaluation Date of Evaluation: 05/13/17 Time of Evaluation: 10:00 - Subjective Subjective: S&E at bedside, patient ambulating in the hallway prn. No further reports of bleeding. Tolerating oral intake, No SOB, CP, or abdominal pain. No acute overnight events. Objective - Vital Signs/Intake and Output Vital Signs (last 24 hours): Temp Pulse Resp BP Pulse Ox 98.4 F 76 19 130/81 97 05/13/17 09:04 05/13/17 09:04 05/13/17 09:04 05/13/17 09:04 05/13/17 09:04 Intake and Output: 05/13/17 05/13/17 06:59 18:59 Intake Total 660 Output Total 0 Balance 660 - Medications Medications: Current Medications Acetaminophen (Tylenol 650mg/20.3ml Solution Ud) 650 mg PO Q6H PRN PRN Reason: Pain, moderate (4-7) Albuterol/Ipratropium (Duoneb 3 Mg/0.5 Mg (3 Ml) Ud) 3 ml IH [id number] PRN PRN Reason: Wheezing Allopurinol (Zyloprim) 300 mg PO DAILY [facility] Last Admin: 05/12/17 11:25 Dose: 300 mg Atorvastatin Calcium (Lipitor) 20 mg PO DAILY [facility] Last Admin: 05/12/17 08:47 Dose: 20 mg Digoxin (Lanoxin) 0.125 mg PO 1400 [facility] Last Admin: 05/12/17 14:00 Dose: 0.125 mg Diltiazem HCl (Cardizem Cd) 120 mg PO DAILY [facility] Last Admin: 05/12/17 08:47 Dose: 120 mg Ferrous Sulfate (Feosol) 324 mg PO TID [facility] Last Admin: 05/12/17 17:11 Dose: 324 mg Furosemide (Lasix) 40 mg PO DAILY [facility] Last Admin: 05/12/17 08:46 Dose: 40 mg Sodium Chloride (Sodium Chloride 0.9%) 1,000 mls @ 100 mls/hr IV .Q10H [facility] Last Admin: 05/10/17 11:12 Dose: 100 mls/hr Ceftriaxone Sodium (Rocephin 1 Gram Ivpb) 1 gm in 100 mls @ 100 mls/hr IVPB DAILY [facility] PRN Reason: Protocol Last Admin: 05/12/17 08:48 Dose: 100 mls/hr Lamotrigine (Lamictal) 25 mg PO DAILY EMI PRN Reason: Protocol Last Admin: 05/12/17 11:24 Dose: 25 mg Multivitamins/Minerals (Therapeutic-M Tab) 1 tab PO 0800 [facility] Ondansetron HCl (Zofran Inj) 4 mg IVP Q4 PRN PRN Reason: Nausea/Vomiting Pantoprazole Sodium (Protonix Inj) 40 mg IVP DAILY [facility] Last Admin: 05/12/17 08:45 Dose: 40 mg Sodium Chloride ([place] Nasal [place]) 1 ml NS TID EMI Stop: 05/18/17 23:59 Last Admin: 05/12/17 17:12 Dose: 1 spr Sucralfate (Carafate Oral Susp) 1 gm PO ACHS [facility] Last Admin: 05/12/17 22:17 Dose: Not Given Zolpidem Tartrate (Ambien) 5 mg PO HS PRN; Protocol PRN Reason: Insomnia Last Admin: 05/11/17 21:55 Dose: 5 mg - Labs Labs: 05/13/17 09:08 05/13/17 09:08 PT 10.9 Seconds (9.9-11.8) 05/13/17 09:08 INR 1.01 (0.93-1.08) 05/13/17 09:08 APTT 26.4 Seconds (23.7-30.8) 05/11/17 05:20 - Constitutional Appears: No Acute Distress - Head Exam Head Exam: NORMAL INSPECTION - Eye Exam Eye Exam: Normal appearance. absent: Scleral icterus - ENT Exam ENT Exam: Mucous Membranes Moist - Neck Exam Neck Exam: Normal Inspection - Respiratory Exam Respiratory Exam: Clear to Ausculation Bilateral, NORMAL BREATHING PATTERN. absent: Respiratory Distress - Cardiovascular Exam Cardiovascular Exam: +S1, +S2 - GI/Abdominal Exam GI & Abdominal Exam: Soft, Normal Bowel Sounds. absent: Guarding, Tenderness, Organomegaly, Rebound - Extremities Exam Extremities Exam: absent: Calf Tenderness, Pedal Edema - Neurological Exam Neurological Exam: Alert, Awake, Oriented x3 - Skin Skin Exam: Dry, Warm Assessment and Plan - Assessment and Plan (Free Text) Assessment: ASSESSMENT: Resolved Epitaxsis, maxillary sinus bleed Anemia,s/p blood transfusion Atrial Fibrillation Coagulopathy s/p FFP, Vit K Thrombocytopenia, improved PLAN: diet as tolerated PPI stopped for thrombocytopenia as per hematolgy, change to carafate, spoke to hematology monitor H/H on PO Cardizem on IV antibiotics: Ceftriaxone Discuss with patient regarding EGD evaluation of Anemia,blood loss likely secondary to nose bleeding, but r/o PUD, angiodyplasia, has had blood transfusion, hgb better today, patient does not want any endoscope now. Discuss risk, and benefit and follow up with GI for EGD/colon in view of Anemia and he will be on anticoagulant therapy. Discuss w/ Dr. Soto, on hematology: Patient will be flying out of [place] despite recommendation of hematology, they were made aware of the risks for thrombolic events. He will be restarted on Coumadin, and be given antiembolic thigh high stockings. Encouraged patient to move around during flight. Seen and discussed with Dr. Tanner.
[2017-05-13] MEDS: diltiaZEM 120 mg/24 Hours CD Cap PO SCH (10:44)
[2017-05-13] MEDS: cefTRIAXone 1 gm 1 GM/100 ML BAG IVPB SCH (10:46)
[2017-05-13 11:58] LABS: HEPATITIS B SURFACE AG NEGATIVE (NEGATIVE)
[2017-05-13 12:03] LABS: HEPATITIS A IGM NEGATIVE (NEGATIVE)
[2017-05-13 12:04] LABS: HEPATITIS B CORE AB NEGATIVE (NEGATIVE)
[2017-05-13 12:16] LABS: HEPATITIS C ANTIBODY NEGATIVE (NEGATIVE)
--- NOTE | 2017-05-13 14:47 | CP.PCM.PN ---
<BrittanySheron - Last Filed: 05/13/17 14:48> Subjective - Date & Time of Evaluation Date of Evaluation: 05/13/17 Time of Evaluation: 07:47 - Subjective Subjective: PGY-[address] Urbina Communicated re: risk/benefit of restarting coumadin without heparin/lovenox bridge and risk of flying within 3 days of coumadin re-initiation without bridging. Pt expressed and appreciate understanding. Patient to follow up with primary MD and GI doctor as an outpatient. Patient to watch for any bleeding. If bleeding occurs please go directly yo the ER. Objective - Vital Signs/Intake and Output Vital Signs (last 24 hours): Temp Pulse Resp BP Pulse Ox 98.4 F 76 19 130/81 97 05/13/17 09:04 05/13/17 10:44 05/13/17 09:04 05/13/17 10:45 05/13/17 09:04 Intake and Output: 05/13/17 05/13/17 06:59 18:59 Intake Total 660 Output Total 0 Balance 660 - Labs Labs: 05/13/17 09:08 05/13/17 09:08 PT 10.9 Seconds (9.9-11.8) 05/13/17 09:08 INR 1.01 (0.93-1.08) 05/13/17 09:08 APTT 26.4 Seconds (23.7-30.8) 05/11/17 05:20 - Constitutional Appears: No Acute Distress - Head Exam Head Exam: NORMAL INSPECTION, NORMOCEPHALIC - Eye Exam Eye Exam: EOMI, Normal appearance, PERRL. absent: Scleral icterus Pupil Exam: NORMAL ACCOMODATION - ENT Exam ENT Exam: Mucous Membranes Moist - Neck Exam Neck Exam: absent: Meningismus - Respiratory Exam Respiratory Exam: Clear to Ausculation Bilateral. absent: Rales, Rhonchi, Wheezes - Cardiovascular Exam Cardiovascular Exam: REGULAR RHYTHM, +S1, +S2 - GI/Abdominal Exam GI & Abdominal Exam: Soft. absent: Rigid, Tenderness - Extremities Exam Extremities Exam: Normal Capillary Refill. absent: Calf Tenderness, Pedal Edema - Back Exam Back Exam: absent: CVA tenderness (L), CVA tenderness (R) - Neurological Exam Neurological Exam: Alert, Awake, Oriented x3 - Psychiatric Exam Psychiatric exam: Normal Affect, Normal Mood - Skin Skin Exam: Dry, Warm Assessment and Plan - Assessment and Plan (Free Text) Plan: 71 morbidly obese male living in [place] on cruise ship, Hx afib s/p maize ablation on coumadin, came to [facility] for sudden b/l epitasix. In the ED, pt vomoted dark red blook and have black stool. INR 3.58 and received Vit K at ED. In the hospital, pt felt lightheaded, fell and hit his head, no LOC. the fall was complicated refractory epitaxis. CT head showed no ICH but air-flid level in L maxillary antrum. CT maxillofacial has ruled out orbital floor or maxillary fracture. ENT placed posterior nasal packing with bactroban top. Pt was downgraded from ICU to tele today. Pt developed rapid a-fib s/p cardizem gtt and now on cardizem PO. L posterior epitaxis - resolved - Posterior nasal packing removed yesterday - LEON precaution Acute anemia - s/p 2u pRBC - Hb 9.2 - 120 Thrombocytopenia - 120 s/p stop protonix Iatrogenic coaguloahty from coumadin Hx A-fib - [id number] 3 = Stroke risk 3.2% per year; 4.6% risk of stroke/TIA/systemic embolism. - HAS-Bled 4 = 9% bleed risk. Pt is at high risk for major bleeding - Per cardio, restart coumadin without bridging with heparin or lovenox Melena, likely swallowed blood - advance diet, tolerating well - CT abd/pelv - no acute intraabdominal finding; diverticulosis of sigmoid Wear compressive stockings on the plane. Exercise fall precaution and leg exercise during flight. Communicated re: risk/benefit of restarting coumadin without heparin/lovenox bridge and risk of flying within 3 days of coumadin re-initiation without bridging. Pt expressed and appreciate understanding. Patient to follow up with primary MD and GI doctor as an outpatient. Patient to watch for any bleeding. If bleeding occurs please go directly yo the ER. s/r/d/w Dr. Urbina <Talisha Urbina P - Last Filed: 05/14/17 19:53> Objective - Vital Signs/Intake and Output Vital Signs (last 24 hours): Temp Pulse Resp BP Pulse Ox 98.4 F 76 19 130/81 97 05/13/17 09:04 05/13/17 10:44 05/13/17 09:04 05/13/17 10:45 05/13/17 09:04 - Labs Labs: 05/13/17 09:08 05/13/17 09:08 PT 10.9 Seconds (9.9-11.8) 05/13/17 09:08 INR 1.01 (0.93-1.08) 05/13/17 09:08 APTT 26.4 Seconds (23.7-30.8) 05/11/17 05:20 Attending/Attestation - Attestation I have personally seen and examined this patient.: Yes I have fully participated in the care of the patient.: Yes I have reviewed all pertinent clinical information, including history, physical exam and plan: Yes
--- NOTE | 2017-05-13 21:12 | CP.PCM.PN ---
Subjective - Date & Time of Evaluation Date of Evaluation: 05/12/17 Time of Evaluation: 13:00 - Subjective Subjective: feel ok no more bleed x 1 day started on coumodin , feel ok , refused any intervention, nasal scope or upper endoscopy colonoscopy,no cough no fever , seem walking better , feel good wants to go home. he will foloow with his md, and ent as has been advised Objective - Vital Signs/Intake and Output Vital Signs (last 24 hours): Temp Pulse Resp BP Pulse Ox 98.4 F 76 19 130/81 97 05/13/17 09:04 05/13/17 10:44 05/13/17 09:04 05/13/17 10:45 05/13/17 09:04 - Labs Labs: 05/13/17 09:08 05/13/17 09:08 PT 10.9 Seconds (9.9-11.8) 05/13/17 09:08 INR 1.01 (0.93-1.08) 05/13/17 09:08 APTT 26.4 Seconds (23.7-30.8) 05/11/17 05:20 - Constitutional Appears: Well - Head Exam Head Exam: ATRAUMATIC, NORMAL INSPECTION, NORMOCEPHALIC - Eye Exam Eye Exam: EOMI, Normal appearance, PERRL - ENT Exam ENT Exam: Mucous Membranes Moist, Normal Exam - Cardiovascular Exam Cardiovascular Exam: Irregular Rhythm, REGULAR RHYTHM, +S1, +S2. absent: Murmur - GI/Abdominal Exam GI & Abdominal Exam: Soft, Normal Bowel Sounds. absent: Tenderness - Rectal Exam Rectal Exam: Deferred - Neurological Exam Neurological Exam: Alert, Awake, CN II-XII Intact, Normal Gait, Oriented x3 Assessment and Plan (1) Afib Status: Acute (2) Anemia Status: Acute (3) Anticoagulant long-term use Status: Acute (4) Epistaxis Status: Acute (5) Thrombocytopenia Status: Acute - Assessment and Plan (Free Text) Plan: continue treatment . physical therapy, . all meds reviewed with the and [facility] pharmacydiscussed patient in details all necessary treatment, patient prefer to do all f/up in [place]...discussed with gi dr gonzalez ent dr castaneda ,, patient will leave in am.
--- NOTE | 2017-05-13 21:24 | CP.PCM.DIS ---
Provider - Provider Date of Admission: 05/08/17 12:56 Attending physician: Holger Holland MD Primary care physician: jen Consults: ent .dr castaneda group. dr carl cardiology. dr gonzalez gastroenterology. dr clark hematology. Time Spent in preparation of Discharge (in minutes): 30 Diagnosis - Discharge Diagnosis (1) Afib Status: Chronic (2) Anemia Status: Acute (3) Anticoagulant long-term use Status: Chronic (4) Epistaxis Status: Acute (5) Thrombocytopenia Status: Acute Hospital Course - Lab Results Lab Results: Micro Results 05/08/17 17:36 Naris MRSA Culture (Admit) - Final MRSA NOT DETECTED Most Recent Lab Values WBC 4.3 10^3/ul (4.5-11.0) L 05/13/17 09:08 RBC 2.86 10^6/uL (3.5-6.1) L 05/13/17 09:08 Hgb 9.2 gm/dL (14.0-18.0) L 05/13/17 09:08 Hct 28.1 % (42.0-52.0) L 05/13/17 09:08 MCV 98.3 fL (80.0-105.0) 05/13/17 09:08 MCH 32.2 pg (25.0-35.0) 05/13/17 09:08 MCHC 32.7 g/dl (31.0-37.0) 05/13/17 09:08 RDW 15.7 % (11.5-14.5) H 05/13/17 09:08 Plt Count 120 10^3/uL (120.0-450.0) 05/13/17 09:08 Manual Plt Count 80 K/mm3 (120-450) L 05/10/17 05:30 MPV 11.0 fl (7.0-11.0) 05/13/17 09:08 Gran % 69.3 % (50.0-68.0) H 05/12/17 16:30 Lymph % (Auto) 18.7 % (22.0-35.0) L 05/12/17 16:30 [place] % (Auto) 10.7 % (1.0-6.0) H 05/12/17 16:30 Eos % (Auto) 0.9 % (1.5-5.0) L 05/12/17 16:30 Baso % (Auto) 0.4 % (0.0-3.0) 05/12/17 16:30 Gran # 3.12 (1.4-6.5) 05/12/17 16:30 Lymph # 0.8 (1.2-3.4) L 05/12/17 16:30 [place] # 0.5 (0.1-0.6) 05/12/17 16:30 Eos # 0.0 (0.0-0.7) 05/12/17 16:30 Baso # 0.02 K/mm3 (0.0-2.0) 05/12/17 16:30 PT 10.9 Seconds (9.9-11.8) 05/13/17 09:08 INR 1.01 (0.93-1.08) 05/13/17 09:08 APTT 26.4 Seconds (23.7-30.8) 05/11/17 05:20 Sodium 138 mmol/L (132-148) 05/13/17 09:08 Potassium 3.4 mmol/L (3.6-5.0) L 05/13/17 09:08 Chloride 102 mmol/L (98-107) 05/13/17 09:08 Carbon Dioxide 29 mmol/L (21-33) 05/13/17 09:08 Anion Gap 10 (10-20) 05/13/17 09:08 BUN 19 mg/dL (7-21) 05/13/17 09:08 Creatinine 1.0 mg/dL (0.5-1.4) 05/13/17 09:08 Est GFR ( Amer) > 60 05/13/17 09:08 Est GFR (Non-Af Amer) > 60 05/13/17 09:08 POC Glucose (mg/dL) 168 mg/dL (65-110) H 05/08/17 16:07 Random Glucose 102 mg/dL (70-110) 05/13/17 09:08 Hemoglobin A1c 5.6 % (4.2-6.5) 05/09/17 05:30 Lactic Acid 1.7 mmol/L (0.7-2.1) 05/08/17 19:15 Calcium 9.0 mg/dL (8.4-10.5) 05/13/17 09:08 Phosphorus 2.9 mg/dL (2.5-4.5) 05/09/17 05:30 Magnesium 1.7 mg/dL (1.7-2.2) 05/09/17 05:30 Total Bilirubin 0.8 mg/dL (0.2-1.3) 05/13/17 09:08 AST 28 U/L (15-59) 05/13/17 09:08 ALT 34 U/L (7-56) 05/13/17 09:08 Alkaline Phosphatase 51 U/L (38-133) 05/13/17 09:08 Troponin I 0.03 ng/mL 05/08/17 17:00 Total Protein 6.2 g/dL (5.8-8.3) 05/13/17 09:08 Albumin 3.5 g/dL (3.0-4.8) 05/13/17 09:08 Globulin 2.7 gm/dL 05/13/17 09:08 Albumin/Globulin Ratio 1.3 (1.1-1.8) 05/13/17 09:08 Triglycerides 132 mg/dL (35-160) 05/09/17 05:30 Cholesterol 114 mg/dL (130-200) L 05/09/17 05:30 LDL Cholesterol Direct 42 mg/dL (0-129) 05/09/17 05:30 HDL Cholesterol 50 mg/dL (29-60) 05/09/17 05:30 Vitamin B12 353 pg/mL (239-931) 05/12/17 05:20 Folate 4.3 ng/mL 05/12/17 05:20 TSH 3rd Generation 1.42 mIU/mL (0.46-4.68) 05/09/17 05:30 Digoxin 0.7 ng/mL (0.8-2.0) L 05/08/17 17:00 Hepatitis A IgM Ab Negative (NEGATIVE) 05/12/17 16:30 Hep Bs Antigen Negative (NEGATIVE) 05/12/17 16:30 Hep B Core IgM Ab Negative (NEGATIVE) 05/12/17 16:30 Hepatitis C Antibody Negative (NEGATIVE) 05/12/17 16:30 HIV 1&2 Ag/Ab, 4th Gen Nonreactive (Nonreactive) 05/12/17 05:20 Blood Type AB NEGATIVE 05/08/17 13:35 Blood Type Confirm AB NEGATIVE 05/08/17 14:25 Antibody Screen Negative 05/08/17 13:35 Crossmatch See Detail 05/08/17 13:35 BBK History Checked No verified bt 05/08/17 13:35 - Hospital Course Hospital Course: patient admitted to tele then to icu for better attension to his multiple acte medical problems, fall while in tele , ct head , ct sinuses, xray knee negative , ent did packing after 2 sets of packing finally stopped oozing, heart rate was fast was given carizem and later swich to po crdizem patient inr above therapeutic level and low platlets , ffp and vit k given, labs was ordered daily for monitoring his case - Date & Time of H&P Date of H&P: 05/08/17 Discharge Exam - Head Exam Head Exam: ATRAUMATIC, NORMAL INSPECTION, NORMOCEPHALIC - Eye Exam Eye Exam: EOMI, Normal appearance, PERRL Pupil Exam: NORMAL ACCOMODATION, PERRL - ENT Exam ENT Exam: Mucous Membranes Dry, Mucous Membranes Moist, Normal Exam, Normal External Ear Exam, Normal Oropharynx, TM's Normal Bilaterally - Neck Exam Neck exam: Full Rom, Normal Inspection - Respiratory Exam Respiratory Exam: Clear to PA & Lateral - Extremities Exam Extremities exam: normal inspection Discharge Plan - Discharge Medications Prescriptions: diltiaZEM [Cardizem] 120 mg PO DAILY #30 tab diltiaZEM CD [Cardizem CD] 120 mg PO DAILY #30 cap Ferrous Sulfate [Feosol] 324 mg PO TID #90 ect Potassium Chloride [K-Dur 20] 20 meq PO DAILY #30 tab Esomeprazole Magnesium [Nexium] 40 mg PO DAILY #30 ecc Sodium Chloride Nasal [place] [[place] Nasal [place]] 1 ml NS TID #1 bottle Multimineral/Multivitamin [Therapeutic-M Tab] 1 tab PO 0800 #30 tab Acetaminophen [Tylenol 650mg/20.3ml solution UD] 650 mg PO Q6H PRN #100 PRN Reason: Pain, Moderate (4-7) - Follow Up Plan Condition: FAIR Disposition: HOME/ ROUTINE Instructions: Nosebleed (GEN), Anemia (DC) Additional Instructions: Continue coumadin tonight. Wear compressive stockings on the plane. Exercise fall precaution and leg exercise during flight. Communicated re: risk/benefit of restarting coumadin without heparin/lovenox bridge and risk of flying within 3 days of coumadin re-initiation without bridging. Pt expressed and appreciate understanding. Patient to follow up with primary MD and GI doctor as an outpatient. Patient to watch for any bleeding. If bleeding occurs please go directly yo the ER.
--- NOTE | 2017-05-27 16:11 | CONS ---
This is Dr. Yaya Hernandez from [facility] dictating a consultation report on patient Bryan Hinojosa Date: 05/08/17 Reason for consultation is:Refractory epistaxis HPI: Patient is a 71 yo male with a PMHx significant for hypertension, atrial fibrillation on Coumadin who was recently [place] a cruise ship and developed spontaneous epistaxis most prominently via his left nare which prompted his presentation to [facility] emergency department for further evaluation and treatment. To note the pt has also admitted he felt lightheaded since the epistaxis had occurred and had a fall in which he sustained trauma to his head. In the emergency department, pt was treated with bilateral rapid rhino nasal packing and an otolaryngology service was consulted while the patient was transferred to the ICU for further monitoring. At the time of the consultation pt reports the history above. He reports previous history of epistaxis via left nare. He denies any history of nasal sinus surgery. Additionally, he reports the epistaxis was refractory to conservative management. He is unable to quantify the amount of blood but states he has had intermittent bleeding via left side for the last 2 days. Additionally, he does report one episode of lightheadedness although currently denies any lightheadedness, chest pain, palpitations, shortness of breath. He reports taking Coumadin in his INR and his ER was noted to be 3.58. PMHx: As above Allergies: NKDA Medications: Were reviewed. SocHx: Patient denies tobacco, alcohol, or illicit drug use use. Review of systems was conducted entirely and the pertinent positives are listed as such in the history of present illness and physical examination. Physical Exam: Vitals: Temperature 97.9 . BP 108/71. Pulse 139 . Respiratory rate 18 Saturate 98% on room air GEN: Pt is age appropriate 71 yo male. NAD. He is answering questions appropriately in full sentences. There is no active bleeding at the time of consultation HEENT: Head is normocephalic. Eyes is EOMI. Noted epiphora bilaterally secondary to nasal packing. PERRL. Ears are unremarkable bilateral, no mass related. Patient has bilateral rapid rhino nasal packings in place with no active epistaxis.(200.1-205.2) oropharynx is unremarkable. Midline there is a clot noted in nasopharynx although no active bleeding is noted. Neck: Supple. (209.1-210.5) Radiographic Studies: The patient had a CT of the head performed on 05/08/17 without contrast which was reported as possibly left orbital floor fractures secondary to blood in the left maxillary sinus. CAT scan has been reviewed. Personally, it does not reveal any obvious fractures to the orbital floor although there is blood in the left maxillary sinus possibly from the nasal packings that have been placed in the patient's active epistaxis. Patients CT of the head does not have coronal reconstructions it is not optimal for visualization of an orbital fracture. There is no other bony fractures noted. Lab Studies: Hemoglobin at admission was noted to be 12.1. Subsequently, it was 11.6 and 12 hours from the first was 10.5. White count is 7.6 currently. Platelets are 114. Coagulation profile reveals an initial an INR of 3.58, patient received a FFP and subsequently it is now 2.78 Chemistry's are noted to be unremarkable. . Procedure: Nasal packing was performed at the pts bedside. The right rapid rhino nasal packing was removed as this was 3cm out the anterior nare and was likely not functional but the nasal packing itself was removed. The right nasal cavity was noted to be free of excoriation or active bleeding. The left nasal packing was also removed, pt had noted oozing from the left side although no active bleeding could be localized. 7.5 cm rhino rapid packing was placed into the left nare with some residual oozing around the packing. At this point a Merocel pack coated in bacitracin was placed high in the nasal cavity and inflated with saline solution and a rapid rhino packing was placed underneath and inflated with air. Hemostasis is noted to be adequate and the patient tolerated the procedure well. Assessment and Plan: Patient is a 71 yo male with a Hx of hypertension and atrial fibrillation on coumadin with no coagulopathy and an INR initially 3.5 who presented with refractory epistaxis to the left nare and a syncopal episode. The pt has had nasal packing placed by otolaryngology service and has had resolution of his epistaxis at this time. Plan: The patient is currently admitted to the ICU for monitoring. Patient should be kept on antistaphylococcal antibiotics while the nasal packings are in place. It is likely the patient's nasal packing will stay in place for the next 3 days. If the patient is stabilized from a medical perspective he can be discharged with plan for packing removal on Thursday. Additionally, recommend optimal conservative care in the form of as well as bacitracin for nares frequently. He can have nasal saline solution ordered via the right nare at this time and after PRN for further epistaxis. Additionally, pt is instructed to avoid any straining, lifting or excessive activity. Also recommend from medical perspective to optimize pt and transfuse PRN for anemia and/or active coagulopathy. Plan was discussed in detail with patient and ICU staff. MARK
--- NOTE | 2017-05-27 16:14 | PN ---
Dr. Yaya Hernandez Date: 05/09/17 Progress Note Subjective: Pt was seen in exam and no acute events over night were noted. Chart has been review, the patient denies any further epistaxis, he either nare , he is clears without difficulty. He is currently denying any lightheadedness, dizziness, chest pain, SOB, or palpitations. Physical Examination: Temperature 98.7 pulse 109 BP145/80 respiratory rate 18 Oxygen saturation is 94% on room air General: Pt is age appropriate, 70 y/o male. He is in no acute distress, he is answering questions appropriately in full sentences. Ears: Nose: there is some dry cluster blood along the right nare, there is no epistaxis on the right nare. Left side: left nare has a and rapid nasal packing in place, no active bleeding there is a clot noted in the nasopharynx. There is no active bleeding from nasopharynx to oropharynx Neck is supple, no midline Laboratory studies: White count: 5.7 Hb 8.2 Platelets 78 Coagulation is noted for an 1.22 Assessment and plan: Pt is a 71 y/o male with epistaxis, s/p control with and rapid nasal pack into the left ner, had been reversed no further epistaxis. Plan: continue nasal packing likely until thursday. He should be kept on an an Staphylococci abx while the packing is in place. Nasal saline sprays to the right nare, ointment to the nares TID. Should avoid any nose blowing . ENT services will likely follow up on Thursday for packing removal. Thank you for letting me participate in this Pt care. [facility] SYSTEMStewart
== END 2017-05-13 13:38 | disposition home or self-care (01) | DRG 151 ==
LOC: ED 07:48 → EROBSV 07:58 → OBSVTOIN 12:56 → ERH 12:56 → 2RSO 15:13 → CCU 17:32 → 3RSO 05-12 09:24
PROVIDERS: ADMIT Internal Medicine; ATTEND Internal Medicine
PROC: 30233K1 Transfusion of Nonautologous Frozen Plasma into Peripheral Vein, Percutaneous Approach (ICD-10-PCS; principal; 2017-05-08)
PROC: 30233N1 Transfusion of Nonautologous Red Blood Cells into Peripheral Vein, Percutaneous Approach (ICD-10-PCS; 2017-05-10)
DX: R04.0 Epistaxis (principal); K92.0 Hematemesis; D62 Acute posthemorrhagic anemia; D68.9 Coagulation defect, unspecified; I42.9 Cardiomyopathy, unspecified; D69.6 Thrombocytopenia, unspecified; I95.9 Hypotension, unspecified; I48.2 Chronic atrial fibrillation; E66.01 Morbid (severe) obesity due to excess calories; E86.0 Dehydration; I10 Essential (primary) hypertension; M10.9 Gout, unspecified; E78.5 Hyperlipidemia, unspecified; S00.01XA Abrasion of scalp, initial encounter; M25.561 Pain in right knee; G40.909 Epilepsy, unspecified, not intractable, without status epilepticus; K57.30 Diverticulosis of large intestine without perforation or abscess without bleeding; F41.9 Anxiety disorder, unspecified; W19.XXXA Unspecified fall, initial encounter; Y92.89 Other specified places as the place of occurrence of the external cause; Z79.01 Long term (current) use of anticoagulants; Z87.891 Personal history of nicotine dependence; Z68.36 Body mass index [BMI] 36.0-36.9, adult